=== PATIENT | female | born 1940 | race Caucasian/White ===

== ENCOUNTER 2017-02-06 04:26 | Inpatient (IN) | payer OTHER, BC ==
[2017-02-06 04:37] VITALS: BMI 34.3
--- NOTE | 2017-02-06 04:57 | DR.GENAD ---
HPI - PCP Primary Care Physician: ELLIOT - HPI Comment HPI Comment: PATIENT WOKE UP THIS AM AROUND 02:00 AM WITH LEFT FLANK PAIN AND SOB. WHILE AWAKE, BRIEF PERIOD WHEN PATIENT FELT IF HER THROAT WAS GOING TO CLOSE. SHE GURGLE AND STARTED BREATHING BETTER. STILL SOB. - Complaint/Symptoms Chief Complaint Doctors Comments: SOB, LEFT FLANK PAIN. Chief Complaint:: PATIENT HAS A SORE SPOT ON HER LEFT FLANK BACK AND SHORT OF BREATH - Nurses notes reviewed Nurses Notes Review: Yes - Source History Provided: Patient - Mode of Arrival Mode of Arrival: Ambulatory - Timing Onset of Chief Complaint: 02/03/17 Came on: Gradually - Duration Duration: Constant Duration: Hours - Severity Severity: Moderate PMH - PMH Past Medical History: Yes Past Medical History: Coronary Artery Disease, Hypertension, Kidney Stones Past Surgical History: Yes Surgical History: Cholecystectomy, Hysterectomy, Ortho Surgery - Family History History of Family Medical Conditions: Yes Family Medical History: Cancer - Social History Does any household member use tobacco: No Alcohol Use: None Do you use any recreational Drugs:: No Lives With: Spouse Lives Where: Home - infectious screening In the last 2 months have you had wt loss of >10#?: NO Have you had fever, night sweats or hemotysis?: No Have you traveled outside the country in the last 6 months?: No Isolation: Standard ROS - Review of Systems Constitutional: Weakness, Fatigue. negative: Chills, Fever, Loss of Appetite Eyes: No Symptoms Reported. negative: Eye Pain, Discharge ENTM: No Symptoms Reported. negative: Ear Pain, Nose Discharge, Nose Congestion , Throat Pain Respiratoy: Non-Productive Cough, Short of Breath, Wheezing. negative: Productive Cough, Hemoptysis Cardiovascular: Edema (ANKLE) Gastrointestinal/Abdominal: No Symptoms Reported. negative: Diarrhea, Nausea, Vomiting Genitourinary: No Symptoms Reported. negative: Dysuria, Frequency, Hematuria Neurological: Weakness. negative: Headache, Dizziness Musculoskeletal: Back Pain (LT FLANK PAIN), Muscle Pain Integumentary: Other (EDEMA ANKLE) Hematologic/Lymphatic: Easy Bruising Endocrine: No Symptoms Reported All Other Systems: Reviewed and Negative PE - Vital Signs Vitals: Temperature 98.1 F Pulse Rate 67 Respiratory Rate 18 Blood Pressure 189/91 O2 Sat by Pulse Oximetry 98 - General Limitations: No Limitations General Appearance: Alert - Head Head Exam: Normal Inspection - Eyes Eye exam: Normal Appearance - ENT ENT Exam: Normal External Ear Exam External Ear Exam: Normal External Inspection TM/Canal Exam: Bilateral Normal Nose Exam: Normal Nose Exam Mouth Exam: Normal Inspection Throat Exam: Normal Inspection - Neck Neck Exam: Trachea Midline. negative: Tenderness, Meningismus, Lymphadenopathy - Chest Chest Inspection: Symmetric Chest Wall Rise - Respiratory Respiratory Exam: negative: Chest Wall Tenderness, Respiratory Distress Respiratory Exam: Bilateral Rhonchi, Lower Rhonchi - Cardiovascular Cardiovascular Exam: Regular Rate, Normal Rhythm, Normal Heart Sounds - Abdominal Exam Abdominal Exam: Normal Bowel Sounds, Soft, Tenderness (LEFT FLANK) - Extremities Extremities Exam: Edema - Back Back Exam: (L) CVA Tenderness - Neurologic Neurological Exam: Alert, Oriented X3, CN II-XII Intact, Reflexes Normal. negative: Motor Sensory Deficit - Psychiatric Psychiatric Exam: Normal Affect, Normal Mood - Skin Skin Exam: Erythema MDM - Additional Information Additional Information Obtained From: Family - Differential Diagnosis Differential Diagnosis: LEFT FLANK PAIN, PYELONEPHRITIS, UTI, KIDNEY STONE, BOWEL ONSTRUCTION, DIVE Course - Treatment Treatment: SEE ORDERS, - Consultation Consultation Comments: DISCUSS PATIENT WITH DR. ZARATE. HE WILL ADMIT PATIENT. - Education/Counseling Education/Counseling: Patient, Family, Education Educated On: Treatment, Diagnosis, Needs for Follow Up ROR - Labs Reviewed Laboratory Results Reviewed?: Yes Result Diagrams: 02/06/17 05:16 02/06/17 05:16 Laboratory: WBC 6.3 X10^3/uL (3.6-10.0) 02/06/17 05:16 RBC 3.32 X10^6/uL (3.5-5.4) L 02/06/17 05:16 Hgb 10.5 g/dL (12.0-16.0) L 02/06/17 05:16 Hct 31.4 % (36.0-47.0) L 02/06/17 05:16 MCV 94.8 fL (80.0-100.0) 02/06/17 05:16 MCH 31.6 pg (27.0-34.0) 02/06/17 05:16 MCHC 33.4 g/dL (33.0-35.0) 02/06/17 05:16 RDW 15.1 % (11.6-16.5) 02/06/17 05:16 Plt Count 162 X10^3/uL (150.0-450.0) 02/06/17 05:16 MPV 8.8 fL (7.4-11.0) 02/06/17 05:16 Neut % 63.7 % (42.0-75.0) 02/06/17 05:16 Lymph % 23.9 % (21.0-51.0) 02/06/17 05:16 [place] % 7.1 % (0.0-13.0) 02/06/17 05:16 Eos % 4.3 % (0.9-2.9) H 02/06/17 05:16 Baso % 1.0 % (0.2-1.0) 02/06/17 05:16 Neut # 4.0 x10^3/uL (2.2-4.8) 02/06/17 05:16 Lymph # 1.5 X10^3/uL (1.3-2.9) 02/06/17 05:16 [place] # 0.5 x10^3/uL (0.3-0.8) 02/06/17 05:16 Eos # 0.3 x10^3/uL (0.0-0.2) H 02/06/17 05:16 Baso # 0.1 X10^3/uL (0.0-0.1) 02/06/17 05:16 Absolute Nucleated RBC 0.0 /100WBC 02/06/17 05:16 Sodium 146 mmol/L (136-145) H 02/06/17 05:16 Corrected Sodium 146 mmol/L (136-145) H 02/06/17 05:16 Potassium 4.4 mmol/L (3.5-5.1) 02/06/17 05:16 Chloride 112 mmol/L (98-107) H 02/06/17 05:16 Carbon Dioxide 24.1 mmol/L (21-32) 02/06/17 05:16 BUN 28 mg/dL (7-18) H 02/06/17 05:16 Creatinine 1.65 mg/dL (0.55-1.02) H 02/06/17 05:16 Est GFR (MDRD) Af Amer 39 (>60) L 02/06/17 05:16 Est GFR (MDRD) Non-Af 32 (>60) L 05/23/17 05:16 Glucose 120 mg/dL (65-99) H 02/06/17 05:16 Calcium 8.8 mg/dL (8.5-10.1) 02/06/17 05:16 Corrected Calcium 9.4 mg/dL (8.5-10.1) 02/06/17 05:16 Total Bilirubin 0.40 mg/dL (0.2-1.0) 02/06/17 05:16 AST 17 Units/L (15-37) 02/06/17 05:16 ALT 19 Units/L (12-78) 02/06/17 05:16 Alkaline Phosphatase 101 Units/L (46-116) 02/06/17 05:16 Creatine Kinase 57 Units/L (26-192) 02/06/17 05:16 CK-MB (CK-2) 1.7 ng/mL (0-4.0) 02/06/17 05:16 CK/CKMB % Calc 3.0 % (<4) 02/06/17 05:16 Troponin I < 0.02 ng/mL (0-1.5) 02/06/17 05:16 B-Natriuretic Peptide 223 pg/mL (0-79) H 02/06/17 05:16 Total Protein 6.5 g/dL (6.4-8.2) 02/06/17 05:16 Albumin 3.3 g/dL (3.4-5.0) L 02/06/17 05:16 Globulin 3.2 g/dL (2.5-4.5) 02/06/17 05:16 Albumin/Globulin Ratio 1.0 Ratio (1.1-2.1) L 02/06/17 05:16 Specimen Type Clean catch urine 02/06/17 05:21 Urine Color Yellow (YELLOW) 02/06/17 05:21 Urine Appearance Slightly hazy (CLEAR) 02/06/17 05:21 Urine pH 5.0 (5.0 - 8.0) 02/06/17 05:21 Ur Specific [place] 1.020 (1.000-1.030) 02/06/17 05:21 Urine Protein 2+ (NEGATIVE) 02/06/17 05:21 Urine Glucose (UA) Negative (NEGATIVE) 02/06/17 05:21 Urine Ketones Negative (NEGATIVE) 02/06/17 05:21 Urine Occult Blood 1+ (NEGATIVE) 02/06/17 05:21 Urine Nitrite Positive (NEGATIVE) 02/06/17 05:21 Urine Bilirubin Negative (NEGATIVE) 02/06/17 05:21 Urine Urobilinogen Normal (NORMAL) 02/06/17 05:21 Ur Leukocyte Esterase 2+ (NEGATIVE) 02/06/17 05:21 Urine RBC 0-3 /HPF (NEGATIVE) 02/06/17 05:21 Urine WBC 10-15 /HPF (NEGATIVE) 02/06/17 05:21 Ur Squamous Epith Cells Few /HPF (NEGATIVE) 02/06/17 05:21 Urine Bacteria 2+ /HPF (NEGATIVE) 02/06/17 05:21 Ur Culture Indicated? Yes/culture set up 02/06/17 05:21 - XRAY XRAY Interpreted by: Radiologist XRAY Findings: REPORT DISCUSS WITH PATIENT. - EKG Rhythm: NSR (EKG NOTED.) - Diagnosis Discharge Problem: Partial small bowel obstruction UTI (urinary tract infection) Qualifiers: Urinary tract infection type: site unspecified Hematuria presence: without hematuria Qualified Code(s): N39.0 - Urinary tract infection, site not specified CHF (congestive heart failure) Qualifiers: Congestive heart failure type: combined Congestive heart failure chronicity: acute on chronic Qualified Code(s): I50.43 - Acute on chronic combined systolic (congestive) and diastolic (congestive) heart failure - Discharge Plan Disposition: ADMITTED INPATIENT Condition: Stable - Follow ups/Referrals Follow ups/Referrals: Tyson Zarate [Primary Care Provider] - 3 days - Instructions
[2017-02-06 05:32] LABS: BASOPHILS # (AUTO) 0.1 X10^3/uL (0.0-0.1); EOSINOPHILS # (AUTO) 0.3 x10^3/uL (0.0-0.2); EOSINOPHILS % (AUTO) 4.3 % (0.9-2.9); HEMATOCRIT 31.4 % (36.0-47.0); HEMOGLOBIN 10.5 g/dL (12.0-16.0); LYMPHOCYTES # (AUTO) 1.5 X10^3/uL (1.3-2.9); LYMPHOCYTES % (AUTO) 23.9 % (21.0-51.0); MEAN CORPUSCULAR HEMOGLOBIN 31.6 pg (27.0-34.0); MEAN CORPUSCULAR HGB CONC 33.4 g/dL (33.0-35.0); MEAN CORPUSCULAR VOLUME 94.8 fL (80.0-100.0); MEAN PLATELET VOLUME 8.8 fL (7.4-11.0); MONOCYTES # (AUTO) 0.5 x10^3/uL (0.3-0.8); MONOCYTES % (AUTO) 7.1 % (0.0-13.0); NEUTROPHILS % (AUTO) 63.7 % (42.0-75.0); PLATELET COUNT 162 X10^3/uL (150.0-450.0); RED BLOOD COUNT 3.32 X10^6/uL (3.5-5.4); RED CELL DISTRIBUTION WIDTH 15.1 % (11.6-16.5); WHITE BLOOD COUNT 6.3 X10^3/uL (3.6-10.0)
--- NOTE | 2017-02-06 05:38 | RAD ---
EXAM: Chest X-ray INDICATION: Shortness of breath COMPARISION: No prior TECHNIQUE: PA, single view FINDINGS: The lungs are clear. The heart is moderately enlarged. No pleural effusion or pneumothorax. The medi astinum is normal. The regional skeleton is intact. IMPRESSION: Cardiomegaly. The remainder of the examination appears unremarkable. Reported By:
[2017-02-06 05:43] LABS: BILIRUBIN,URINE NEGATIVE (NEGATIVE); BLOOD/HEMOGLOBIN,URINE 1+ (NEGATIVE); GLUCOSE, URINE NEGATIVE (NEGATIVE); KETONES,URINE NEGATIVE (NEGATIVE); LEUKOCYTE ESTERASE ,URINE 2+ (NEGATIVE); NITRITES,URINE POSITIVE (NEGATIVE); PROTEIN,URINE 2+ (NEGATIVE); UROBILINOGEN,URINE NORMAL (NORMAL)
[2017-02-06 05:46] LABS: BLOOD UREA NITROGEN 28 mg/dL (7-18); CALCIUM 8.8 mg/dL (8.5-10.1); CARBON DIOXIDE 24.1 mmol/L (21-32); CHLORIDE 112 mmol/L (98-107); COR NA(FOR HYPERGLY) 146 mmol/L (136-145); CREATININE 1.65 mg/dL (0.55-1.02); GLUCOSE 120 mg/dL (65-99); SODIUM 146 mmol/L (136-145); TROPONIN I < 0.02 ng/mL (0-1.5); eGFR BLACK RACES 39 (>60); eGFR NON BLACK RACES 32 (>60)
[2017-02-06 05:49] LABS: B-TYPE NATRIURETIC PEPTIDE 223 pg/mL (0-79)
[2017-02-06 05:49] LABS: APPEARANCE,URINE SLIGHTLY HAZY (CLEAR); BACTERIA,URINE 2+ /HPF (NEGATIVE); COLOR,URINE YELLOW (YELLOW); RBC,URINE 0-3 /HPF (NEGATIVE); SQUAMOUS EPITHELIAL CELL,UR FEW /HPF (NEGATIVE)
[2017-02-06 05:53] LABS: ALANINE AMINOTRANSFERASE 19 Units/L (12-78); ALBUMIN 3.3 g/dL (3.4-5.0); ALKALINE PHOSPHATASE 101 Units/L (46-116); ASPARTATE AMINO TRANSFERASE 17 Units/L (15-37); COR CA(FOR HYPOALB) 9.4 mg/dL (8.5-10.1); CREATINE KINASE 57 Units/L (26-192); CREATINE KINASE MB 1.7 ng/mL (0-4.0); TOTAL PROTEIN 6.5 g/dL (6.4-8.2)
--- NOTE | 2017-02-06 06:15 | CT ---
HISTORY: Left flank pain Study: CT abdomen pelvis without contrast Comparison: None Technique: Axial non contrast images with coronal and sagittal reformats. Dose reduction procedures were used with MA/kv adjusted for body size. Findings: The lung bases are clear. There is a large hiatal hernia present. The heart is enlarged. The liver, spleen, adrenal glands, and pancreas are within normal limits to the limitations of an unenhanced ex amination. The patient is status post cholecystectomy. The kidneys are unobstructed and without ston es. No ureteral calculi are identified. Calcific atherosclerotic change is present in a nondilated a bdominal aorta. No enlarged intraperitoneal or retroperitoneal lymphadenopathy is identified. The ap pendix is normal. There are no findings suggestive of diverticulitis or colitis. In the left upper q uadrant. There are some very mildly dilated loops of jejunum demonstrating some mild transmural thic kening. More distally the distal jejunum and ileal loops are of more normal caliber. A very mild par tial small bowel obstruction is possible. Possible etiologies would be adhesion and internal herniat ion. The mild transmural thickening could be on the basis of vascular congestion or enteritis. Repea t examination with intravenous and oral contrast may be of further diagnostic value. As would furthe r surgical evaluation. Examination of the pelvis demonstrated no evidence for pelvic masses, pelvic fluid, or pelvic lymphadenopathy. No definite bladder abnormality is identified. No lytic or blastic skeletal lesions are identified. IMPRESSION: No evidence for obstructing renal or ureteral calculi Very mildly dilated loops of jejunum in the left upper quadrant with more normal size distal jejunal and ileal loops suggesting the possibility of a mild partial small bowel obstruction. The etiology is not obvious. Adhesion and internal herniation are possibilities. See recommendation as above. Mild transmural thickening in some of the dilated loops which could be on the basis of vascular tano estion inflammation or enteritis Large hiatal hernia Reported By:
[2017-02-06] MEDS ORDERED: NS 250 ML IV 250 ML IV ONE (07:24)
[2017-02-06] MEDS: CIPRO IV 400 MG PREMIX* 400 MG/200 ML IV.SOLN. IV SCH ×3 (07:25→20:32)
[2017-02-06] MEDS ORDERED: [UNRECOGNIZED DRUG - OTHER] PO SCH (09:00)
[2017-02-06] MEDS ORDERED: METOPROLOL TARTRATE PO SCH (09:00)
[2017-02-06] MEDS ORDERED: VALSARTAN HYDROCHLOROTHIAZIDE PO SCH (09:00)
[2017-02-06] MEDS: PEPCID 20 MG IV PREMIX* 20 MG/50 ML BAG IV SCH (11:01)
[2017-02-06] MEDS: ZYLOPRIM PO SCH (11:01)
[2017-02-06] MEDS: FLAGYL IV PREMIX 500 MG BAG 500 MG/100 ML BAG IV SCH ×4 (11:01→20:33)
[2017-02-06] MEDS: DIOVAN TAB 160 MG PO SCH (11:02)
[2017-02-06] MEDS: LOPRESSOR TAB 50 MG PO SCH (11:02)
[2017-02-06] MEDS: VASOTEC TAB 20 MG PO SCH (11:02)
[2017-02-06] MEDS: HYDROCHLOROTHIAZIDE 25 MG TAB PO SCH (11:03)
[2017-02-06 11:50] LABS: CKMB % 2.8 % (<4); CREATINE KINASE 53 Units/L (26-192); CREATINE KINASE MB 1.5 ng/mL (0-4.0); TROPONIN I < 0.02 ng/mL (0-1.5)
[2017-02-06 13:02] LABS: CRYPTOSPORIDIUM PARVUM ANTIGEN NEGATIVE (NEGATIVE); GIARDIA LAMBLIA ANTIGEN NEGATIVE (NEGATIVE)
[2017-02-06 17:21] LABS: CKMB % 2.6 % (<4); CREATINE KINASE 54 Units/L (26-192); CREATINE KINASE MB 1.4 ng/mL (0-4.0); TROPONIN I < 0.02 ng/mL (0-1.5)
[2017-02-07] MEDS: FLAGYL IV PREMIX 500 MG BAG 500 MG/100 ML BAG IV SCH ×4 (03:31→20:09)
[2017-02-07 04:51] LABS: BASOPHILS # (AUTO) 0.1 X10^3/uL (0.0-0.1); BASOPHILS % (AUTO) 0.9 % (0.2-1.0); EOSINOPHILS # (AUTO) 0.3 x10^3/uL (0.0-0.2); EOSINOPHILS % (AUTO) 4.1 % (0.9-2.9); HEMATOCRIT 29.9 % (36.0-47.0); HEMOGLOBIN 9.9 g/dL (12.0-16.0); LYMPHOCYTES % (AUTO) 29.7 % (21.0-51.0); MEAN CORPUSCULAR HEMOGLOBIN 31.4 pg (27.0-34.0); MEAN CORPUSCULAR HGB CONC 33.1 g/dL (33.0-35.0); MEAN CORPUSCULAR VOLUME 94.8 fL (80.0-100.0); MEAN PLATELET VOLUME 9.4 fL (7.4-11.0); MONOCYTES # (AUTO) 0.5 x10^3/uL (0.3-0.8); MONOCYTES % (AUTO) 7.8 % (0.0-13.0); NEUTROPHILS # (AUTO) 3.8 x10^3/uL (2.2-4.8); NEUTROPHILS % (AUTO) 57.5 % (42.0-75.0); PLATELET COUNT 149 X10^3/uL (150.0-450.0); RED BLOOD COUNT 3.16 X10^6/uL (3.5-5.4); RED CELL DISTRIBUTION WIDTH 14.8 % (11.6-16.5); WHITE BLOOD COUNT 6.6 X10^3/uL (3.6-10.0)
[2017-02-07 05:03] LABS: ALANINE AMINOTRANSFERASE 16 Units/L (12-78); ALBUMIN 2.9 g/dL (3.4-5.0); ALKALINE PHOSPHATASE 89 Units/L (46-116); ASPARTATE AMINO TRANSFERASE 16 Units/L (15-37); BLOOD UREA NITROGEN 27 mg/dL (7-18); CALCIUM 8.5 mg/dL (8.5-10.1); CARBON DIOXIDE 24.8 mmol/L (21-32); CHLORIDE 111 mmol/L (98-107); COR CA(FOR HYPOALB) 9.4 mg/dL (8.5-10.1); CREATININE 1.66 mg/dL (0.55-1.02); GLUCOSE 102 mg/dL (65-99); SODIUM 145 mmol/L (136-145); TOTAL PROTEIN 5.8 g/dL (6.4-8.2); eGFR BLACK RACES 38 (>60); eGFR NON BLACK RACES 32 (>60)
[2017-02-07] MEDS: DIOVAN TAB 160 MG PO SCH (09:22)
[2017-02-07] MEDS: LOPRESSOR TAB 50 MG PO SCH (09:22)
[2017-02-07] MEDS: CIPRO IV 400 MG PREMIX* 400 MG/200 ML IV.SOLN. IV SCH ×2 (09:23→20:09)
[2017-02-07] MEDS: VASOTEC TAB 20 MG PO SCH (09:23)
[2017-02-07] MEDS: HYDROCHLOROTHIAZIDE 25 MG TAB PO SCH (09:23)
[2017-02-07] MEDS: PEPCID 20 MG IV PREMIX* 20 MG/50 ML BAG IV SCH (09:23)
[2017-02-07] MEDS: ALBUMIN HUMAN 25%- 100ML 100 ML IV SCH (09:24)
[2017-02-07] MEDS: ZYLOPRIM PO SCH (09:29)
[2017-02-07] MEDS: GENTAMICIN TOPICAL CRM TOP SCH ×3 (12:04→21:45)
--- NOTE | 2017-02-07 14:31 | DR.H&P ---
H&P - History & Physical for Day of: H&P Date: 02/06/17 - Chief Complaint Chief Complaint: LEFT FLANK PAIN, ABDOMINAL PAIN, SHORTNESS OF BREATH - Allergies Allergies/Adverse Reactions: Allergies Allergy/AdvReac Type Severity Reaction Status Date / Time Cephalexin [From Keflex] Allergy Verified 07/03/14 13:04 Nitrofurantoin Allergy Verified 07/03/14 13:04 [From Macrobid] - History of Present Illness History of Present Illness: THIS IS A 76 YEAR OLD FEMALE, WHO IS A PATIENT OF OURS. SHE PRESENTS TO THE EMERGENCY ROOM WITH COMPLAINTS OF LEFT FLANK PAIN, ABDOMINAL PAIN, AND SHORTNESS OF BREATH. SHE REPORTS SYMPTOMS STARTED GRADUALLY AND HAVE WORSENED OVER TIME. PATIENT IS NOTED WITH TENDERNESS TO ABDOMEN AND LEFT FLANK ON PALPATION. LABS AND CT OBTAINED. CBC WNL EXCEPT: H/ H 10.5/31.4. CMP WNL EXCEPT: SODIUM 146, CHL 112, BUN/CREAT 28/1.65, GFR 32, GLUCOSE 120, BNP 223, ALBUMIN 3.3. CARDIAC ENZYMES WNL. EKG: SINUS RHYTHM, RATE 68. URINALYSIS ABNORMALS: PROTEIN 2+, OCCULT BLOOD 1+, NITRATE POSITIVE, LEUKOCYTE ESTERASE 2+, RBC 0-3, WBC 10-15, BACTERIA 2+; CULTURE PENDING. CHEST XRAY REPORTS LUNGS CLEAR. CT OF ABD/PELVIS REPORTS VERY MILDLY DILATED LOOPS OF JEJUNUM IN THE LEFT UPPER QUADRANT WITH MORE NORMAL SIZE DISTAL JEJUNAL AND ILEAL LOOPS SUGGESTING THE POSSIBILITY OF A MILD PARTIAL SMALL BOWEL OBSTRUCTION ; LARGE HIATAL HERNIA. WE WILL ADMIT PATIENT, START IV FLUIDS, IV CIPRO AND FLAGYL, AND CONTINUE TO MONITOR. WE WILL FOLLOW UP IN AM WITH LABS. - Past Medical History Past Medical History: Anemia, Arthritis, CHF, Coronary Artery Disease, GERD, Hypertension, Kidney Stones, Sleep Apnea Additional Medical History: Cataracts, Cardiomegaly, Constipation, Urinary Tract Infections, Previous Blood Transfusion - Past Surgical History Surgical History: Cholecystectomy, Hysterectomy, Ortho Surgery Additional Surgical History: Left Shoulder Surgery, Left Foot Second Toe Surgery - Family History Family Medical History: Cancer - Social History Does patient currently use any type of tobacco product: No Have you used tobacco products in the last 12 months: No Type of Tobacco Use: None Does any household member use tobacco: No Alcohol Use: None Drug Use: None - Medications Home Medications: Allopurinol [ZYLOPRIM tab 100 mg *] 1 tab PO DAILY 07/03/14 Enalapril Maleate [VASOTEC TAB 20 MG *] 1 tab PO DAILY 07/03/14 Metoprolol Tartrate [Lopressor tab 100 mg] 1 tab PO DAILY 07/03/14 Ranitidine HCl 1 tab PO BID 07/03/14 Valsartan-Hydrochlorothiazide [Valsartan/HCTZ 320/25 mg] 1 tab PO DAILY Torsemide [Demadex] 10 mg PO PRN PRN 02/06/17 - Review of Systems Constitutional: Weakness, Malaise. denies: Fever Eyes: No Symptoms Reported. denies: Pain, Vision Change, Conjunctivae Inflammation, Eyelid Inflammation, Redness ENT: No Symptoms Reported. denies: Ear Pain, Ear Discharge, Nose Pain, Nose Discharge, Nose Congestion, Mouth Pain, Mouth Swelling, Throat Pain, Throat Swelling Respiratory: Shortness of Breath, SOB with Excertion. denies: Hemoptysis, Pleuritic Pain, Sputum, Wheezing Cardiovascular: No Symptoms Reported. denies: Chest Pain, Palpitations, Orthopnea, Paroxysmal Noc. Dyspnea, Edema, Light Headedness Gastrointestinal: Abdominal Pain. denies: Nausea, Vomiting, Diarrhea, Constipation, Melena, Hematochezia Genitourinary: Dysuria, Frequency, Hematuria. denies: Incontinence, Retention Musculoskeletal: Other (Left Flank Pain) Skin: No Symptoms Reported. denies: Rash, Lesions, Jaundice, Bruising, Wound, Ecchymosis Neurological: No Symptoms Reported. denies: Weakness, Numbness, Incoordination , Change in Speech, Confusion, Seizures - Physical Exam Vital Signs: Temperature 97.8 F Pulse Rate [Right Brachial] 57 Respiratory Rate 16 Blood Pressure [Left Arm] 154/71 Blood Pressure [Right Arm] 159/79 O2 Sat by Pulse Oximetry 96 Oriented: Normal, Time, Person, Place Eyes: Normal. negative: Blurred Vision, Diplopia, Discharge, Pain, Redness, Photophobia Ear: Normal. negative: Swelling, Ecchymosis, Hemotypanum, Abrasion, Laceration Nose: Normal. negative: Injected, Discharge, Blood Throat: Dry. negative: Tonsillar Hypertrophy, Exudate Respiratory: Diminished Throughout Cardiovascular: Normal. negative: Murmur, Edema : Dysuria, Hematuria, Frequency. negative: Discharge, Bleeding, Auscultation: Bowel Sounds: Decreased. negative: Bruit Palpation: Normal. negative: Spleen Enlarged, Liver Enlarged, Mass Pulsatile Tenderness: Diffuse, Moderate. negative: Rebound, Guarding, Rigidity Skin: Decreased Turgur. negative: Diaphoresis, Wound, Bruising, Ecchymosis Musculoskeletal: Instability Psychiatric: Normal Mood Description: Calm, Appropriate Affect: Normal Speech Pattern: Clear, Appropriate - Assessment/Plan (1) Partial small bowel obstruction Status: Acute Plan: ADMIT PATIENT, HOLD NPO, START IV FLUIDS, IV CIPRO, IV FLAGYL, MONITOR. (2) UTI (urinary tract infection) Qualifiers: Urinary tract infection type: site unspecified Hematuria presence: without hematuria Indwelling urinary catheter type: I Encounter type: E Qualified Code(s): N39.0 - Urinary tract infection, site not specified Status: Acute Plan: ABOVE. (3) CHF (congestive heart failure) Qualifiers: Congestive heart failure type: combined Congestive heart failure chronicity : acute on chronic Qualified Code(s): I50.43 - Acute on chronic combined systolic (congestive) and diastolic (congestive) heart failure Status: Chronic (4) Arthritis Status: Chronic (5) Cardiomegaly Status: Chronic (6) GERD (gastroesophageal reflux disease) Qualifiers: Esophagitis presence: esophagitis presence not specified Qualified Code(s) : K21.9 - Gastro-esophageal reflux disease without esophagitis Status: Chronic (7) HTN (hypertension) Qualifiers: Hypertension type: essential hypertension Qualified Code(s): I10 - Essential (primary) hypertension Status: Chronic (8) Sleep apnea Qualifiers: Sleep apnea type: S Status: Chronic
--- NOTE | 2017-02-07 14:45 | PCM.PROG ---
Progress Note - Progress Note for Day of Date: 02/07/17 - Subjective Subjective: PATIENT REPORTS ABDOMINAL PAIN IS IMPROVING. SHE HAS BEEN STARTED ON A REGULAR DIET AND IS TOLERATING FAIR. PATIENT REPORTS LOOSE STOOLS AND STOOL CULTURE WAS OBTAINED THAT REPORTED CAMPYLOBACTER. PATIENT WILL CONTINUE ON CIPRO IV FOR TREATMENT. WE DISCUSS THIS WITH PATIENT AND SHE IS IN AGREEMENT WITH TREATMENT. PATIENT REPORTS SWELLING AND REDNESS TO LEFT, SECOND TOE. ON EXAMINATION, THERE IS REDNESS AND WARMTH NOTED ALONG WITH TENDERNESS TO SKIN SURROUNDING LEFT, SECOND TOE. CBC WNL EXCEPT: H/H 9.9/29.9, PLT COUNT 149. CMP WNL EXCEPT: CHL 111, BUN/CREAT 27/1.66, GFR 32, GLUCOSE 102, TOT PROTEIN 5.8, ALBUMIN 2.9. CARDIAC ENZYMES WNL. WE WILL START GENTAMICIN CREAM TO LEFT, SECOND TOE, CONTINUE IV ANTIBIOTICS AND FOLLOW UP IN AM WITH LABS. - Past Medical Family Social History Past Med/Fam/Surg Hx: No changes since H&P Allergies: Allergies Cephalexin [From Keflex] Allergy (Verified 07/03/14 13:04) Nitrofurantoin [From Macrobid] Allergy (Verified 07/03/14 13:04) - Review of Systems ROS: No change since H&P - Vital Signs and I&O's Vital Signs: Temperature 97.8 F Pulse Rate [Right Brachial] 57 Respiratory Rate 16 Blood Pressure [Left Arm] 154/71 Blood Pressure [Right Arm] 159/79 O2 Sat by Pulse Oximetry 96 Intake and Output: Intake & Output 02/05/17 02/06/17 02/07/17 02/08/17 11:59 11:59 11:59 11:59 Intake Total 1730 1649 Balance 1730 1649 - Physical Exam Oriented: Normal, Time, Person, Place Eyes: Normal. negative: Blurred Vision, Diplopia, Discharge, Pain, Redness, Photophobia Ear: Normal. negative: Swelling, Ecchymosis, Hemotypanum, Abrasion, Laceration Nose: Normal. negative: Injected, Discharge, Blood Throat: Dry. negative: Tonsillar Hypertrophy, Exudate Respiratory: Normal Cardiovascular: Normal. negative: Murmur, Edema : Dysuria, Hematuria, Frequency. negative: Discharge, Bleeding, Auscultation: Bowel Sounds: Decreased. negative: Bruit Palpation: Normal. negative: Spleen Enlarged, Liver Enlarged, Mass Pulsatile Tenderness: Diffuse, Mild. negative: Rebound, Guarding, Rigidity Skin: Decreased Turgur. negative: Diaphoresis, Wound, Bruising, Ecchymosis Musculoskeletal: Instability Psychiatric: Normal Mood Description: Calm, Appropriate Affect: Normal Speech Pattern: Clear, Appropriate - Laboratory and Diagnostics Result Diagrams: 02/07/17 03:25 02/07/17 03:25 Labs: 02/06/17 09:34 Stool Stool Culture - Preliminary Campylobacter Species 02/06/17 09:34 Stool - Final Laboratory WBC 6.6 X10^3/uL (3.6-10.0) 02/07/17 03:25 RBC 3.16 X10^6/uL (3.5-5.4) L 02/07/17 03:25 Hgb 9.9 g/dL (12.0-16.0) L 02/07/17 03:25 Hct 29.9 % (36.0-47.0) L 02/07/17 03:25 MCV 94.8 fL (80.0-100.0) 02/07/17 03:25 MCH 31.4 pg (27.0-34.0) 02/07/17 03:25 MCHC 33.1 g/dL (33.0-35.0) 02/07/17 03:25 RDW 14.8 % (11.6-16.5) 02/07/17 03:25 Plt Count 149 X10^3/uL (150.0-450.0) L 02/07/17 03:25 MPV 9.4 fL (7.4-11.0) 02/07/17 03:25 Neut % 57.5 % (42.0-75.0) 02/07/17 03:25 Lymph % 29.7 % (21.0-51.0) 02/07/17 03:25 [place] % 7.8 % (0.0-13.0) 02/07/17 03:25 Eos % 4.1 % (0.9-2.9) H 02/07/17 03:25 Baso % 0.9 % (0.2-1.0) 02/07/17 03:25 Neut # 3.8 x10^3/uL (2.2-4.8) 02/07/17 03:25 Lymph # 2.0 X10^3/uL (1.3-2.9) 02/07/17 03:25 [place] # 0.5 x10^3/uL (0.3-0.8) 02/07/17 03:25 Eos # 0.3 x10^3/uL (0.0-0.2) H 02/07/17 03:25 Baso # 0.1 X10^3/uL (0.0-0.1) 02/07/17 03:25 Absolute Nucleated RBC 0.1 /100WBC 02/07/17 03:25 Sodium 145 mmol/L (136-145) 02/07/17 03:25 Corrected Sodium TNP 02/07/17 03:25 Potassium 4.5 mmol/L (3.5-5.1) 02/07/17 03:25 Chloride 111 mmol/L (98-107) H 02/07/17 03:25 Carbon Dioxide 24.8 mmol/L (21-32) 02/07/17 03:25 BUN 27 mg/dL (7-18) H 02/07/17 03:25 Creatinine 1.66 mg/dL (0.55-1.02) H 02/07/17 03:25 Est GFR (MDRD) Af Amer 38 (>60) L 02/07/17 03:25 Est GFR (MDRD) Non-Af 32 (>60) L 02/07/17 03:25 Glucose 102 mg/dL (65-99) H 02/07/17 03:25 Uric Acid 6.0 mg/dL (2.6-6.0) 02/07/17 03:25 Calcium 8.5 mg/dL (8.5-10.1) 02/07/17 03:25 Corrected Calcium 9.4 mg/dL (8.5-10.1) 02/07/17 03:25 Total Bilirubin 0.40 mg/dL (0.2-1.0) 02/07/17 03:25 AST 16 Units/L (15-37) 02/07/17 03:25 ALT 16 Units/L (12-78) 02/07/17 03:25 Alkaline Phosphatase 89 Units/L (46-116) 02/07/17 03:25 Creatine Kinase 54 Units/L (26-192) 02/06/17 16:38 CK-MB (CK-2) 1.4 ng/mL (0-4.0) 02/06/17 16:38 CK/CKMB % Calc 2.6 % (<4) 02/06/17 16:38 Troponin I < 0.02 ng/mL (0-1.5) 02/06/17 16:38 B-Natriuretic Peptide 223 pg/mL (0-79) H 02/06/17 05:16 Total Protein 5.8 g/dL (6.4-8.2) L 02/07/17 03:25 Albumin 2.9 g/dL (3.4-5.0) L 02/07/17 03:25 Globulin 2.9 g/dL (2.5-4.5) 02/07/17 03:25 Albumin/Globulin Ratio 1.0 Ratio (1.1-2.1) L 02/07/17 03:25 Specimen Type Clean catch urine 02/06/17 05:21 Urine Color Yellow (YELLOW) 02/06/17 05:21 Urine Appearance Slightly hazy (CLEAR) 02/06/17 05:21 Urine pH 5.0 (5.0 - 8.0) 02/06/17 05:21 Ur Specific [place] 1.020 (1.000-1.030) 02/06/17 05:21 Urine Protein 2+ (NEGATIVE) 02/06/17 05:21 Urine Glucose (UA) Negative (NEGATIVE) 02/06/17 05:21 Urine Ketones Negative (NEGATIVE) 02/06/17 05:21 Urine Occult Blood 1+ (NEGATIVE) 02/06/17 05:21 Urine Nitrite Positive (NEGATIVE) 02/06/17 05:21 Urine Bilirubin Negative (NEGATIVE) 02/06/17 05:21 Urine Urobilinogen Normal (NORMAL) 02/06/17 05:21 Ur Leukocyte Esterase 2+ (NEGATIVE) 02/06/17 05:21 Urine RBC 0-3 /HPF (NEGATIVE) 02/06/17 05:21 Urine WBC 10-15 /HPF (NEGATIVE) 02/06/17 05:21 Ur Squamous Epith Cells Few /HPF (NEGATIVE) 02/06/17 05:21 Urine Bacteria 2+ /HPF (NEGATIVE) 02/06/17 05:21 Ur Culture Indicated? Yes/culture set up 02/06/17 05:21 Stool Description 30g unformed 02/06/17 09:34 Stl Occult Blood (IFOB) Negative (NEGATIVE) 02/06/17 09:34 Stool for White Cells No wbc's seen (None) 02/06/17 09:34 Stl C. diff Tox B Gene Negative (NEGATIVE) 02/06/17 09:34 Stl C. diff [id number] Negative (NEGATIVE) 02/06/17 09:34 Cryptosporid parvum Ag Negative (NEGATIVE) 02/06/17 09:34 E. histolytica Antigen Negative (NEGATIVE) 02/06/17 09:34 Giardia lamblia Ag Negative (NEGATIVE) 02/06/17 09:34 - Plan (1) Partial small bowel obstruction Status: Acute Plan: CONTINUE IV FLUIDS, IV CIPRO, IV FLAGYL, MONITOR. (2) UTI (urinary tract infection) Status: Acute Qualifiers: Urinary tract infection type: site unspecified Hematuria presence: without hematuria Indwelling urinary catheter type: I Encounter type: E Qualified Code(s): N39.0 - Urinary tract infection, site not specified Plan: ABOVE. (3) CHF (congestive heart failure) Status: Chronic Qualifiers: Congestive heart failure type: combined Congestive heart failure chronicity : acute on chronic Qualified Code(s): I50.43 - Acute on chronic combined systolic (congestive) and diastolic (congestive) heart failure (4) Arthritis Status: Chronic (5) Cardiomegaly Status: Chronic (6) GERD (gastroesophageal reflux disease) Status: Chronic Qualifiers: Esophagitis presence: esophagitis presence not specified Qualified Code(s) : K21.9 - Gastro-esophageal reflux disease without esophagitis (7) HTN (hypertension) Status: Chronic Qualifiers: Hypertension type: essential hypertension Qualified Code(s): I10 - Essential (primary) hypertension (8) Sleep apnea Status: Chronic Qualifiers: Sleep apnea type: S
[2017-02-07] MEDS ORDERED: NS 250 ML IV 250 ML IV ONE (19:59)
[2017-02-08] MEDS: FLAGYL IV PREMIX 500 MG BAG 500 MG/100 ML BAG IV SCH ×2 (03:09→08:31)
[2017-02-08] MEDS: GENTAMICIN TOPICAL CRM TOP SCH (05:19)
[2017-02-08 05:45] LABS: CALCIUM 8.8 mg/dL (8.5-10.1); CARBON DIOXIDE 23.9 mmol/L (21-32); COR CA(FOR HYPOALB) 9.6 mg/dL (8.5-10.1); CREATININE 1.75 mg/dL (0.55-1.02); TOTAL PROTEIN 5.7 g/dL (6.4-8.2)
[2017-02-08 05:56] LABS: BASOPHILS % (AUTO) 0.5 % (0.2-1.0); EOSINOPHILS # (AUTO) 0.2 x10^3/uL (0.0-0.2); EOSINOPHILS % (AUTO) 3.8 % (0.9-2.9); HEMATOCRIT 28.8 % (36.0-47.0); HEMOGLOBIN 9.6 g/dL (12.0-16.0); LYMPHOCYTES # (AUTO) 1.5 X10^3/uL (1.3-2.9); LYMPHOCYTES % (AUTO) 24.1 % (21.0-51.0); MEAN CORPUSCULAR HEMOGLOBIN 31.6 pg (27.0-34.0); MEAN CORPUSCULAR HGB CONC 33.5 g/dL (33.0-35.0); MEAN CORPUSCULAR VOLUME 94.3 fL (80.0-100.0); MEAN PLATELET VOLUME 9.1 fL (7.4-11.0); MONOCYTES # (AUTO) 0.5 x10^3/uL (0.3-0.8); MONOCYTES % (AUTO) 7.9 % (0.0-13.0); NEUTROPHILS # (AUTO) 3.9 x10^3/uL (2.2-4.8); NEUTROPHILS % (AUTO) 63.7 % (42.0-75.0); PLATELET COUNT 137 X10^3/uL (150.0-450.0); RED BLOOD COUNT 3.05 X10^6/uL (3.5-5.4); RED CELL DISTRIBUTION WIDTH 14.9 % (11.6-16.5); WHITE BLOOD COUNT 6.1 X10^3/uL (3.6-10.0)
[2017-02-08] MEDS: ZYLOPRIM PO SCH (08:31)
[2017-02-08] MEDS: HYDROCHLOROTHIAZIDE 25 MG TAB PO SCH (08:31)
[2017-02-08] MEDS: DIOVAN TAB 160 MG PO SCH (08:31)
[2017-02-08] MEDS: VASOTEC TAB 20 MG PO SCH (08:32)
[2017-02-08] MEDS: LOPRESSOR TAB 50 MG PO SCH (08:32)
[2017-02-08] MEDS: PEPCID 20 MG IV PREMIX* 20 MG/50 ML BAG IV SCH (08:35)
[2017-02-08] MEDS: CIPRO IV 400 MG PREMIX* 400 MG/200 ML IV.SOLN. IV SCH (08:36)
[2017-02-08] MEDS: ALBUMIN HUMAN 25%- 100ML 100 ML IV SCH (08:36)
[2017-02-08 08:58] VITALS: BP 157/61
== END 2017-02-08 12:30 | disposition home or self-care (01) | DRG 388 ==
LOC: ER 04:26 → ICU 07:12
PROVIDERS: ADMIT Internal Medicine; ATTEND Internal Medicine
DX: K56.69 Other intestinal obstruction (principal); N39.0 Urinary tract infection, site not specified; I50.43 Acute on chronic combined systolic (congestive) and diastolic (congestive) heart failure; R06.02 Shortness of breath; R10.84 Generalized abdominal pain; I25.10 Atherosclerotic heart disease of native coronary artery without angina pectoris; I10 Essential (primary) hypertension; R94.31 Abnormal electrocardiogram [ECG] [EKG]; K44.9 Diaphragmatic hernia without obstruction or gangrene; M13.89 Other specified arthritis, multiple sites; I51.7 Cardiomegaly; K21.9 Gastro-esophageal reflux disease without esophagitis; G47.39 Other sleep apnea; B96.29 Other Escherichia coli [E. coli] as the cause of diseases classified elsewhere; A04.5 Campylobacter enteritis
CPT/HCPCS: 36415; 71010; 74176; 80053; 81001; 82270; 82550; 82553; 83880; 84484; 84550; 85025; 87045; 87086; 87088; 87186; 87205; 87328; 87329; 87336; 87427; 87493; 87899; 93005; 96374; 99284; A4222; P9047; S0028; S0030; J0744

== ENCOUNTER → 2017-07-30 | Outpatient (CLI) | payer OTHER, BC ==
--- NOTE | 2017-07-31 17:24 | MG ---
HISTORY: Screening Study: Bilateral digital screening mammography with CAD Comparison: June 26, 2014 Technique: CC and MLO views of both breasts were obtained Findings: The breasts are heterogeneously dense without suspicious interval change. There is no mass or archite ctural distortion. Benign calcifications are noted without suspicious clustered microcalcifications. There is no skin thickening or nipple retraction. No pathologic lymphadenopathy is identified. IMPRESSION: No mammographic evidence of malignancy. BI-RADS 2. Benign findings. Yearly mammographic imaging is recommended. * 0 (ZERO) - ASSESSMENT INCOMPLETE; ADDITIONAL IMAGING IS NEEDED. * 1/1 (ONE) - NEGATIVE. * 2/II (TWO) - BENIGN FINDINGS. * 3/III (THREE) - PROBABLY BENIGN FINDING; SHORT INTERVAL FOLLOW-UP SUGGESTED. * 4/IV (FOUR) - SUSPICIOUS ABNORMALITY; BIOPSY SHOULD BE CONSIDERED. * 5/V (FIVE) - HIGHLY SUSPICIOUS OF MALIGNANCY; BIOPSY SHOULD BE PERFORMED. * 6/ (SIX) - KNOWN MALIGNANCY. A NEGATIVE X-RAY REPORT SHOULD NOT DELAY BIOPSY IF A DOMINANT OR CLINICALLY SUSPICIOUS MASS IS PRESENT; 4 TO 8 PERCENT OF CANCERS ARE NOT IDENTIFIED BY X-RAY. A NEGA TIVE REPORT MAY REINFORCE THE CLINICAL IMPRESSION. ADENOSIS AND DENSE BREASTS MAY OBSCURE AN UNDERLY ING NEOPLASM. Reported By:
== END ==
LOC: RAD 14:09
PROVIDERS: ATTEND Internal Medicine
DX: Z12.31 Encounter for screening mammogram for malignant neoplasm of breast (principal)
CPT/HCPCS: 77067

== ENCOUNTER 2017-12-04 10:42 | Day surgery (SDC) | payer OTHER, BC ==
[~2017-12-04 10:42] MED LIST: VERSED ONE
[2017-12-04] MEDS ORDERED: TETRACAINE 0.5% OPHTH 1 DOSE AFFEYE ONE ×3 (10:55→13:35)
[2017-12-04] MEDS ORDERED: NS 500 ML IV 500 ML IV ONE (10:56)
[2017-12-04] MEDS ORDERED: VIGAMOX 0.5% OPHTH 1 DOSE AFFEYE ONE ×3 (10:56→11:06)
[2017-12-04] MEDS ORDERED: PROLENSA OPHTH 1 DOSE AFFEYE ONE (11:08)
[2017-12-04] MEDS ORDERED: ALPHAGAN-P OPHTH 1 DOSE AFFEYE ONE (11:09)
[2017-12-04] MEDS ORDERED: CYCLOGYL 1% OPHTH 1 DOSE OP ONE ×6 (11:11→11:16)
[2017-12-04] MEDS ORDERED: AK-DILATE 2.5% OPHTH 1 DOSE OP ONE ×6 (11:11→11:16)
[2017-12-04] MEDS ORDERED: MYDRIACIL OPHTH 1 DOSE AFFEYE ONE ×6 (11:11→11:16)
[2017-12-04] MEDS ORDERED: BETADINE OPHTH SOLN 5% EACHEYE ONE (13:30)
[2017-12-04] MEDS ORDERED: XYLOCAINE-MPF 1% IJ ONE (13:35)
[2017-12-04] MEDS ORDERED: DUOVISC IO ONE (13:35)
[2017-12-04] MEDS ORDERED: ADRENALINE CHL INJ IJ ONE (13:35)
[2017-12-04] MEDS ORDERED: VIGAMOX 0.5% AFFEYE ONE ×2 (13:39→13:48)
[2017-12-04] MEDS ORDERED: BSS OPHTH (PLAIN) 500 ML with VANCOMYCIN HCL 500 MG VIAL 25 MG, ADRENALINE CHL INJ 1 MG IR ONE ×3 (13:40)
[2017-12-04] MEDS ORDERED: VISCOAT 0.5 ML IO ONE (13:47)
[2017-12-04 15:36] VITALS: BP 162/78
== END 2017-12-04 14:13 | disposition home or self-care (01) ==
LOC: SURG1 10:42
PROVIDERS: ATTEND Ophthalmology
PROC: 08DK3ZZ Extraction of Left Lens, Percutaneous Approach (ICD-10-PCS; principal; 2017-12-04 15:45)
PROC: 08RK3JZ Replacement of Left Lens with Synthetic Substitute, Percutaneous Approach (ICD-10-PCS; principal; 2017-12-04 15:45)
DX: H25.12 Age-related nuclear cataract, left eye (principal); H25.012 Cortical age-related cataract, left eye; H25.042 Posterior subcapsular polar age-related cataract, left eye; H52.222 Regular astigmatism, left eye
CPT/HCPCS: 99100; A9270; A4217; J0170; J2250; J3370

== ENCOUNTER 2017-12-25 08:22 | Day surgery (SDC) | payer OTHER, BC ==
[2017-12-25] MEDS ORDERED: NS 500 ML IV 500 ML IV ONE (08:42)
[2017-12-25] MEDS ORDERED: TETRACAINE 0.5% OPHTH 1 DOSE AFFEYE ONE ×2 (08:45→11:42)
[2017-12-25] MEDS ORDERED: VIGAMOX 0.5% OPHTH 1 DOSE AFFEYE ONE ×5 (08:50→12:35)
[2017-12-25] MEDS ORDERED: PROLENSA OPHTH 1 DOSE AFFEYE ONE (09:01)
[2017-12-25] MEDS ORDERED: ALPHAGAN-P OPHTH 1 DOSE AFFEYE ONE (09:02)
[2017-12-25] MEDS ORDERED: CYCLOGYL 1% OPHTH 1 DOSE OP ONE ×3 (09:03→09:05)
[2017-12-25] MEDS ORDERED: MYDRIACIL OPHTH 1 DOSE AFFEYE ONE ×3 (09:03→09:05)
[2017-12-25] MEDS ORDERED: AK-DILATE 2.5% OPHTH 1 DOSE OP ONE ×3 (09:03→09:05)
[2017-12-25] MEDS ORDERED: XYLOCAINE 1 % (PLAIN) ONE (09:30)
[2017-12-25] MEDS ORDERED: VERSED ONE (09:30)
[2017-12-25] MEDS ORDERED: DIPRIVAN VIAL ONE (09:30)
[2017-12-25] MEDS ORDERED: BETADINE OPHTH SOLN 5% EACHEYE ONE (11:49)
[2017-12-25] MEDS ORDERED: DUOVISC IO ONE (12:21)
[2017-12-25] MEDS ORDERED: BSS OPHTH (PLAIN) 500 ML with VANCOMYCIN HCL 500 MG VIAL 25 MG, ADRENALINE CHL INJ 1 MG IR ONE ×3 (12:21)
[2017-12-25] MEDS ORDERED: ADRENALINE CHL INJ IJ ONE (12:21)
[2017-12-25] MEDS ORDERED: XYLOCAINE-MPF 1% IJ ONE (12:21)
[2017-12-25 15:55] VITALS: BP 160/75
== END 2017-12-25 13:00 | disposition home or self-care (01) ==
LOC: SURG1 08:22
PROVIDERS: ATTEND Ophthalmology
PROC: 08DJ3ZZ Extraction of Right Lens, Percutaneous Approach (ICD-10-PCS; principal; 2017-12-25 13:30)
PROC: 08RJ3JZ Replacement of Right Lens with Synthetic Substitute, Percutaneous Approach (ICD-10-PCS; principal; 2017-12-25 13:30)
DX: H25.11 Age-related nuclear cataract, right eye (principal); H25.011 Cortical age-related cataract, right eye; H25.041 Posterior subcapsular polar age-related cataract, right eye; H52.221 Regular astigmatism, right eye
CPT/HCPCS: 99100; A9270; A4217; J0170; J2001; J2250; J3370; J3490

== ENCOUNTER 2018-02-05 14:43 | Observation (INO) | payer OTHER, BC ==
[2018-02-05 14:47] VITALS: BMI 34.3
[2018-02-05 15:14] LABS: BASOPHILS # (AUTO) 0.1 X10^3/uL (0.0-0.1); BASOPHILS % (AUTO) 1.2 % (0.2-1.0); EOSINOPHILS # (AUTO) 0.2 x10^3/uL (0.0-0.2); EOSINOPHILS % (AUTO) 2.4 % (0.9-2.9); HEMATOCRIT 34.3 % (36.0-47.0); HEMOGLOBIN 11.6 g/dL (12.0-16.0); LYMPHOCYTES # (AUTO) 1.7 X10^3/uL (1.3-2.9); LYMPHOCYTES % (AUTO) 20.3 % (21.0-51.0); MEAN CORPUSCULAR HEMOGLOBIN 31.9 pg (27.0-34.0); MEAN CORPUSCULAR HGB CONC 33.9 g/dL (33.0-35.0); MEAN CORPUSCULAR VOLUME 94.1 fL (80.0-100.0); MEAN PLATELET VOLUME 9.4 fL (7.4-11.0); MONOCYTES # (AUTO) 0.7 x10^3/uL (0.3-0.8); MONOCYTES % (AUTO) 8.2 % (0.0-13.0); NEUTROPHILS # (AUTO) 5.8 x10^3/uL (2.2-4.8); NEUTROPHILS % (AUTO) 67.9 % (42.0-75.0); PLATELET COUNT 183 X10^3/uL (150.0-450.0); RED BLOOD COUNT 3.64 X10^6/uL (3.5-5.4); RED CELL DISTRIBUTION WIDTH 14.8 % (11.6-16.5); WHITE BLOOD COUNT 8.5 X10^3/uL (3.6-10.0)
[2018-02-05 15:31] LABS: BLOOD UREA NITROGEN 32 mg/dL (7-18); CALCIUM 8.3 mg/dL (8.5-10.1); CARBON DIOXIDE 24.9 mmol/L (21-32); CHLORIDE 106 mmol/L (98-107); COR NA(FOR HYPERGLY) 142 mmol/L (136-145); CREATININE 1.84 mg/dL (0.55-1.02); SODIUM 141 mmol/L (136-145); TROPONIN I < 0.02 ng/mL (0-1.5); eGFR BLACK RACES 34 (>60); eGFR NON BLACK RACES 28 (>60)
[2018-02-05 15:35] LABS: ALANINE AMINOTRANSFERASE 22 Units/L (12-78); ALBUMIN 3.6 g/dL (3.4-5.0); ALKALINE PHOSPHATASE 108 Units/L (46-116); ASPARTATE AMINO TRANSFERASE 21 Units/L (15-37); CKMB % 2.3 % (<4); CREATINE KINASE 60 Units/L (26-192); CREATINE KINASE MB 1.4 ng/mL (0-4.0); MAGNESIUM 1.8 mg/dL (1.7-2.9); TOTAL PROTEIN 7.2 g/dL (6.4-8.2)
--- NOTE | 2018-02-05 15:59 | RAD ---
HISTORY: Chest tightness and shortness of breath Study: Single-view chest Comparison: 02/06/2017 Findings: The trachea is midline. The cardiac silhouette appears enlarged in size which may be in part secondar y to patient's large hiatal hernia. However, this finding is stable when compared to prior exam. Ther e is right paratracheal stripe soft tissue prominence which could reflect a torturous and/or ectatic thoracic aorta. The lungs are clear. No acute infiltrate, consolidation, or pleural effusion is ident ified. The bony structures are grossly intact. Postsurgical changes of the left shoulder are noted. IMPRESSION: 1. No acute cardiopulmonary process evident. Please see above discussion Reported By:
[2018-02-05] MEDS ORDERED: ASPIRIN EC 81 MG PO ONE (16:18)
[2018-02-05] MEDS ORDERED: PEPCID 20 MG IV PREMIX* 20 MG/50 ML BAG IV ONE ×2 (16:23→16:31)
--- NOTE | 2018-02-05 16:23 | DR.CP ---
HPI - Time Seen Time seen: 15:00 - PCP Primary Care Physician: ELLIOT - HPI Comment HPI Comment: SINCE 05:00AM TODAY, PATIENT IS HAVING BRNING SENSATION IN HER CHEST RADIATING TO LEFT NECK ASSOCIATED WITH SOB. PAIN IS LESS INTENSE CURRENTLY. NO URI SYMTOMS. PATIENT DID NOT TAKE ANY MEDICATION FOR PAIN. WENT TO SEE PCP AND SENT TO ED FOR CHEST PAIN WORK UP. - Complaint Chief Complaint Doctor Comments: CHEST PAIN TIMES SEVERAL HOURS. Chief Complaint:: PT. C/O TIGHTNESS IN CHEST AND SHORTNESS OF BREATH WHICH BEGAN AT 0500. PT. STATES SHE IS HAVING A BURNING AND STINGING SENSATION TO LEFT SIDE OF NECK. - Reviewed Nurses Notes Review: Yes - Source History Provided: Patient - Mode of Arrival Mode of Arrival: Ambulatory - Timing Onset of Chief Complaint: 02/05/18 Came on: Suddenly Pain: Present Now - Duration Duration: Constant Duration: Hours - Location Location of Chest Pain: Left, Chest Chest Pain Radiation Location: Neck - Context Onset: At rest Cardiac Risk Factors: HTN PE Risk Factors: None History of: Angina Prehospital Care: None - Quality Quality: Burning - Severity Severity: Moderate - Modifying Factors Worsens: Nothing Impoves: Nothing - Associated Signs and Symptoms Associated Signs and Symptoms: Shortness of Breath PMH - PMH Past Medical History: Yes Past Medical History: Anemia, Arthritis, CHF, Coronary Artery Disease, GERD, Hypertension, Kidney Stones, Sleep Apnea Past Surgical History: Yes Surgical History: Cholecystectomy, Hysterectomy, Ortho Surgery - Family History History of Family Medical Conditions: Yes Family Medical History: Cancer - Social History Does patient currently use any type of tobacco product: No Have you used tobacco products in the last 12 months: No Type of Tobacco Use: None Does any household member use tobacco: No Alcohol Use: None Do you use any recreational Drugs:: No Lives With: Alone Lives Where: Home - infectious screening In the last 2 months have you had wt loss of >10#?: NO Have you had fever, night sweats or hemotysis?: No Have you traveled outside the country in the last 6 months?: No Isolation: Standard ROS - Review of Systems Constitutional: Weakness, Fatigue. negative: Chills, Diaphoresis, Fever, Malaise Eyes: No Symptoms Reported. negative: Eye Pain, Discharge ENTM: No Symptoms Reported. negative: Ear Pain, Nose Discharge, Nose Congestion , Throat Pain Respiratoy: Short of Breath. negative: Productive Cough, Non-Productive Cough, Wheezing, Hemoptysis Cardiovascular: Chest Pain, Edema. negative: Palpitations Gastrointestinal/Abdominal: negative: Abdominal Pain, Constipation, Diarrhea, Nausea, Vomiting Genitourinary: negative: Dysuria, Hematuria Neurological: Weakness. negative: Headache, Dizziness Musculoskeletal: No Symptoms Reported Integumentary: No Symptoms Reported Hematologic/Lymphatic: No Symptoms Reported Endocrine: No Symptoms Reported All Other Systems: Reviewed and Negative PE - Vitals Vitals: Temperature 98.2 F Pulse Rate [Apical] 69 Pulse Rate 86 Respiratory Rate 20 Blood Pressure [Left Arm] 182/78 Blood Pressure [Right Arm] 183/78 Blood Pressure 193/86 O2 Sat by Pulse Oximetry 99 - General Limitations: No Limitations General Appearance: Alert - Head Head Exam: Normal Inspection - Eyes Eye exam: Normal Appearance - ENT ENT Exam: Normal External Ear Exam - Chest Chest Inspection: Symmetric Chest Wall Rise - Respiratory Respiratory Exam: Normal Lung Sounds Bilat Respiratory Exam: Bilateral Clear to Auscultation - Cardiovascular Cardiovascular Exam: Regular Rate, Normal Rhythm, Normal Heart Sounds Pulse: Normal, Radial, Femoral Edema: Normal - Abdominal Exam Abdominal Exam: Normal Bowel Sounds, Soft. negative: Tenderness - Extremities Extremities Exam: Edema. negative: Calf Tenderness - Back Back Exam: Normal Inspection - Neurologic Neurological Exam: Alert, Oriented X3, CN II-XII Intact. negative: Motor Sensory Deficit - Skin Skin Exam: Normal Color MDM - Additional Information Additional Information Obtained From: Family - Differential Diagnosis Differential Diagnosis: Angina, Esophageal Reflux/Spasm, Gastritis, Pericarditis , Pleuritis, Pancreatitis, Pneumonia, Pneumothorax Course - Treatment Treatment: SEE ORDERS, - Consultation Consultation Comments: PATIENT WILL BE ADMITTED TO DR. MCCOY SERVICE. - Education/Counseling Education/Counseling: Patient, Family, Education Educated On: Treatment, Diagnosis, Needs for Follow Up ROR - Labs Reviewed Laboratory Results Reviewed?: Yes Result Diagrams: 02/05/18 14:55 02/05/18 14:55 Laboratory: WBC 8.5 X10^3/uL (3.6-10.0) 02/05/18 14:55 RBC 3.64 X10^6/uL (3.5-5.4) 02/05/18 14:55 Hgb 11.6 g/dL (12.0-16.0) L 02/05/18 14:55 Hct 34.3 % (36.0-47.0) L 02/05/18 14:55 MCV 94.1 fL (80.0-100.0) 02/05/18 14:55 MCH 31.9 pg (27.0-34.0) 02/05/18 14:55 MCHC 33.9 g/dL (33.0-35.0) 02/05/18 14:55 RDW 14.8 % (11.6-16.5) 02/05/18 14:55 Plt Count 183 X10^3/uL (150.0-450.0) 02/05/18 14:55 MPV 9.4 fL (7.4-11.0) 02/05/18 14:55 Neut % (Auto) 67.9 % (42.0-75.0) 02/05/18 14:55 Lymph % (Auto) 20.3 % (21.0-51.0) L 02/05/18 14:55 [place] % (Auto) 8.2 % (0.0-13.0) 02/05/18 14:55 Eos % (Auto) 2.4 % (0.9-2.9) 02/05/18 14:55 Baso % (Auto) 1.2 % (0.2-1.0) H 02/05/18 14:55 Neut # (Auto) 5.8 x10^3/uL (2.2-4.8) H 02/05/18 14:55 Lymph # (Auto) 1.7 X10^3/uL (1.3-2.9) 02/05/18 14:55 [place] # (Auto) 0.7 x10^3/uL (0.3-0.8) 02/05/18 14:55 Eos # (Auto) 0.2 x10^3/uL (0.0-0.2) 02/05/18 14:55 Baso # (Auto) 0.1 X10^3/uL (0.0-0.1) 02/05/18 14:55 Absolute Nucleated RBC 0.2 /100WBC 02/05/18 14:55 INR Target Range - 02/05/18 14:55 INR 1.01 (0.8-1.3) 02/05/18 14:55 APTT 26.7 SECONDS (22.9-36.5) 02/05/18 14:55 PTT Comment - 02/05/18 14:55 Sodium 141 mmol/L (136-145) 02/05/18 14:55 Corrected Sodium 142 mmol/L (136-145) 02/05/18 14:55 Potassium 4.0 mmol/L (3.5-5.1) 02/05/18 14:55 Chloride 106 mmol/L (98-107) 02/05/18 14:55 Carbon Dioxide 24.9 mmol/L (21-32) 02/05/18 14:55 BUN 32 mg/dL (7-18) H 02/05/18 14:55 Creatinine 1.84 mg/dL (0.55-1.02) H 02/05/18 14:55 Est GFR (MDRD) Af Amer 34 (>60) L 02/05/18 14:55 Est GFR (MDRD) Non-Af 28 (>60) L 02/05/18 14:55 Glucose 145 mg/dL (65-99) H 02/05/18 14:55 Calcium 8.3 mg/dL (8.5-10.1) L 02/05/18 14:55 Corrected Calcium TNP 02/05/18 14:55 Magnesium 1.8 mg/dL (1.7-2.9) 02/05/18 14:55 Total Bilirubin 0.40 mg/dL (0.2-1.0) 02/05/18 14:55 AST 21 Units/L (15-37) 02/05/18 14:55 ALT 22 Units/L (12-78) 02/05/18 14:55 Alkaline Phosphatase 108 Units/L (46-116) 02/05/18 14:55 Creatine Kinase 60 Units/L (26-192) 02/05/18 14:55 CK-MB (CK-2) 1.4 ng/mL (0-4.0) 02/05/18 14:55 CK/CKMB % Calc 2.3 % (<4) 02/05/18 14:55 Troponin I < 0.02 ng/mL (0-1.5) 02/05/18 14:55 Total Protein 7.2 g/dL (6.4-8.2) 02/05/18 14:55 Albumin 3.6 g/dL (3.4-5.0) 02/05/18 14:55 Globulin 3.6 g/dL (2.5-4.5) 02/05/18 14:55 Albumin/Globulin Ratio 1.0 Ratio (1.1-2.1) L 02/05/18 14:55 - XRAY XRAY Findings: REPORT DISCUSS WITH PATIENT. - EKG Rhythm: NSR (EKG NOTED.) - Diagnosis Discharge Problem: Chest pain Qualifiers: Chest pain type: precordial pain Qualified Code(s): R07.2 - Precordial pain - Discharge Plan Disposition: ADMITTED INPATIENT Condition: Stable - Follow ups/Referrals - Instructions
[2018-02-05] MEDS ORDERED: ASPIRIN 81 MG CHEWTAB ONE (16:31)
[2018-02-05] MEDS ORDERED: LOPRESSOR TAB 50 MG ONE (16:50)
[2018-02-05] MEDS: NS 1000 ML 1,000 ML IV SCH (17:42)
[2018-02-05] MEDS: APRESOLINE TAB 25 MG PO SCH (20:16)
[2018-02-05] MEDS ORDERED: METOPROLOL TARTRATE PO SCH (21:00)
[2018-02-06 00:03] LABS: CKMB % 2.9 % (<4); CREATINE KINASE 45 Units/L (26-192); CREATINE KINASE MB 1.3 ng/mL (0-4.0); TROPONIN I < 0.02 ng/mL (0-1.5)
[2018-02-06 05:43] LABS: BASOPHILS # (AUTO) 0.1 X10^3/uL (0.0-0.1); BASOPHILS % (AUTO) 0.7 % (0.2-1.0); EOSINOPHILS # (AUTO) 0.3 x10^3/uL (0.0-0.2); EOSINOPHILS % (AUTO) 3.5 % (0.9-2.9); HEMATOCRIT 30.6 % (36.0-47.0); HEMOGLOBIN 10.6 g/dL (12.0-16.0); MEAN CORPUSCULAR HEMOGLOBIN 32.5 pg (27.0-34.0); MEAN CORPUSCULAR HGB CONC 34.5 g/dL (33.0-35.0); MEAN CORPUSCULAR VOLUME 94.1 fL (80.0-100.0); MEAN PLATELET VOLUME 9.9 fL (7.4-11.0); MONOCYTES # (AUTO) 0.7 x10^3/uL (0.3-0.8); MONOCYTES % (AUTO) 9.3 % (0.0-13.0); NEUTROPHILS # (AUTO) 4.6 x10^3/uL (2.2-4.8); NEUTROPHILS % (AUTO) 60.5 % (42.0-75.0); PLATELET COUNT 146 X10^3/uL (150.0-450.0); RED BLOOD COUNT 3.25 X10^6/uL (3.5-5.4); RED CELL DISTRIBUTION WIDTH 14.9 % (11.6-16.5); WHITE BLOOD COUNT 7.5 X10^3/uL (3.6-10.0)
[2018-02-06 05:45] LABS: ALANINE AMINOTRANSFERASE 17 Units/L (12-78); ALBUMIN 2.8 g/dL (3.4-5.0); ALKALINE PHOSPHATASE 83 Units/L (46-116); ASPARTATE AMINO TRANSFERASE 15 Units/L (15-37); BLOOD UREA NITROGEN 30 mg/dL (7-18); CALCIUM 7.7 mg/dL (8.5-10.1); CARBON DIOXIDE 23.6 mmol/L (21-32); CHLORIDE 109 mmol/L (98-107); CHOL/HDL RATIO 3.8 (0.0-5.0); CHOLESTEROL 138 mg/dL (0-200); COR CA(FOR HYPOALB) 8.7 mg/dL (8.5-10.1); CREATININE 1.54 mg/dL (0.55-1.02); HDL CHOLESTEROL 36 mg/dL (40-60); SODIUM 141 mmol/L (136-145); TOTAL PROTEIN 5.8 g/dL (6.4-8.2); TRIGLYCERIDES 71 mg/dL (0-150); eGFR BLACK RACES 42 (>60); eGFR NON BLACK RACES 35 (>60)
[2018-02-06] MEDS: NS 1000 ML 1,000 ML IV SCH ×2 (06:00→21:29)
[2018-02-06 06:07] LABS: CKMB % 2.5 % (<4); CREATINE KINASE 44 Units/L (26-192); CREATINE KINASE MB 1.1 ng/mL (0-4.0); TROPONIN I < 0.02 ng/mL (0-1.5)
[2018-02-06] MEDS: APRESOLINE TAB 25 MG PO SCH ×2 (08:54→21:22)
[2018-02-06] MEDS: HEMOCYTE-PLUS PO SCH (08:54)
[2018-02-06] MEDS: DIOVAN TAB 160 MG PO SCH (08:54)
[2018-02-06] MEDS: DEMADEX PO SCH (08:54)
[2018-02-06] MEDS: ZYLOPRIM PO SCH (08:55)
[2018-02-06] MEDS: ASPIRIN EC 81 MG PO SCH (08:55)
[2018-02-06] MEDS: LOPRESSOR TAB 50 MG PO SCH (08:55)
[2018-02-06] MEDS: HYDROCHLOROTHIAZIDE 25 MG TAB PO SCH (08:55)
[2018-02-06] MEDS ORDERED: [UNRECOGNIZED DRUG - OTHER] PO SCH (09:00)
[2018-02-06] MEDS ORDERED: VALSARTAN HYDROCHLOROTHIAZIDE PO SCH (09:00)
[2018-02-06] MEDS ORDERED: IRON PO SCH (09:00)
[2018-02-06] MEDS ORDERED: [UNRECOGNIZED DRUG - OTHER] PO SCH (09:00)
[2018-02-06] MEDS ORDERED: VIT BCOMP C PO SCH (09:00)
[2018-02-06] MEDS ORDERED: FOLIC AC PO SCH (09:00)
[2018-02-06] MEDS ORDERED: VASOTEC TAB 20 MG PO SCH (09:00)
[2018-02-06] MEDS ORDERED: TORSEMIDE 10 MG PO SCH (09:00)
--- NOTE | 2018-02-06 15:39 | VAS ---
Exam: Carotid Doppler exam History: 77-year-old female with dizziness. Evaluate for possible carotid artery stenosis. Comparison: None Findings: Mild degree of plaque is present in both carotid bulbs. On the right, peak systolic velocities in cm/sec of the right internal and common carotid arteries me asure 82 and 121 respectively. The greatest ICA/CCA ratio on the right is 0.71 On the left, peak systolic velocities in cm/sec of the left internal and common carotid arteries rupa ure 98 and the greatest ICA/CCA ratio on the left is 0.86. Antegrade flow is documented in patent vertebral arteries bilaterally. Impression: No hemodynamically significant carotid stenosis is seen on either side. Reported By:
[2018-02-07 06:17] LABS: BASOPHILS # (AUTO) 0.1 X10^3/uL (0.0-0.1); BASOPHILS % (AUTO) 0.9 % (0.2-1.0); EOSINOPHILS # (AUTO) 0.3 x10^3/uL (0.0-0.2); EOSINOPHILS % (AUTO) 3.3 % (0.9-2.9); HEMOGLOBIN 11.3 g/dL (12.0-16.0); LYMPHOCYTES # (AUTO) 1.8 X10^3/uL (1.3-2.9); LYMPHOCYTES % (AUTO) 22.8 % (21.0-51.0); MEAN CORPUSCULAR HEMOGLOBIN 32.4 pg (27.0-34.0); MEAN CORPUSCULAR HGB CONC 34.2 g/dL (33.0-35.0); MEAN CORPUSCULAR VOLUME 94.7 fL (80.0-100.0); MEAN PLATELET VOLUME 9.9 fL (7.4-11.0); MONOCYTES # (AUTO) 0.7 x10^3/uL (0.3-0.8); MONOCYTES % (AUTO) 9.4 % (0.0-13.0); NEUTROPHILS % (AUTO) 63.6 % (42.0-75.0); PLATELET COUNT 159 X10^3/uL (150.0-450.0); RED BLOOD COUNT 3.48 X10^6/uL (3.5-5.4); WHITE BLOOD COUNT 7.9 X10^3/uL (3.6-10.0)
[2018-02-07 06:54] LABS: ALANINE AMINOTRANSFERASE 18 Units/L (12-78); ALBUMIN 3.4 g/dL (3.4-5.0); ALKALINE PHOSPHATASE 101 Units/L (46-116); ASPARTATE AMINO TRANSFERASE 17 Units/L (15-37); BLOOD UREA NITROGEN 31 mg/dL (7-18); CALCIUM 8.2 mg/dL (8.5-10.1); CARBON DIOXIDE 24.1 mmol/L (21-32); CHLORIDE 106 mmol/L (98-107); COR NA(FOR HYPERGLY) 140 mmol/L (136-145); CREATININE 1.68 mg/dL (0.55-1.02); SODIUM 140 mmol/L (136-145); eGFR BLACK RACES 38 (>60); eGFR NON BLACK RACES 31 (>60)
[2018-02-07] MEDS: HYDROCHLOROTHIAZIDE 25 MG TAB PO SCH (09:41)
[2018-02-07] MEDS: DIOVAN TAB 160 MG PO SCH (09:41)
[2018-02-07] MEDS: HEMOCYTE-PLUS PO SCH (09:41)
[2018-02-07] MEDS: ZYLOPRIM PO SCH (09:41)
[2018-02-07] MEDS: ASPIRIN EC 81 MG PO SCH (09:41)
[2018-02-07] MEDS: DEMADEX PO SCH (09:42)
[2018-02-07] MEDS: APRESOLINE TAB 25 MG PO SCH (09:42)
[2018-02-07] MEDS: LOPRESSOR TAB 50 MG PO SCH (09:42)
[2018-02-07] MEDS: NS 1000 ML 1,000 ML IV SCH (11:16)
[2018-02-07 11:24] VITALS: BP 160/75
--- NOTE | 2018-02-12 21:42 | DR.UPDATE ---
H&P Update History and Physical Update: History and Physical reviewed and patient examined. Changes noted: Yes with the following: was seen in the office on 01/16/18 for complaints of chest pain. She was sent to the ER for further evaluation. Patient presented to the ER with reports that symptoms started several hours prior to arrival to the hospital. Patient states pain started as a burning sensation and then radiated to left arm with associated shortness of breath. On arrival, vitals were 98.2, 86, 20, 98% RA, 193/86. Labs were obtained. Abnormal Labs include the following: Hgb 11.6, Hct 34.3, BUN 32, Creatinine 1.84, GFR af 34, GFR non 28, Glucose 145, Calcium 8.3, A/G Ratio 1.0. Cardiac enzymes within normal limits. EKG revealed: Sinus Rhythm. Left bundle branch block. Rate=82. Chest X-Ray revealed: No acute cardiopulmonary process evident. Patient admitted to the hospital as observation for further evaluation and treatment. Plans are to obtain serial cardiac enzymes and EKG s. Patient placed on continuous cardiac cath technician and will follow up with labs in the morning.
--- NOTE | 2018-02-12 21:48 | PCM.PROG ---
Progress Note - Progress Note for Day of Date: 02/06/18 - Subjective Subjective: was admitted for chest pain, rule out myocardial infarction. Today, she is alert and oriented, lying in bed on morning rounds. She denies chest pain at the time. On examination, heart is regular in rate and rhythm. Bilateral lungs are clear to auscultation. Abdomen is round, soft, and non-tender with normal bowel sounds noted in all quadrants. Her vitals this morning are 98.6-60-20-96%-1769/78. Labs were obtained. Abnormal lab values include the following: rbc 3.25, hgb 10.6, hct 30.6, plt count 146, chloride 109 , bun 30, creatinine 1.54, calcium 7.7, total protein 5.8, albumin 2.8. cardiac enzymes and EKGs have been within normal limits. Today, we plan to obtain an echocardiogram and a carotid doppler. Otherwise, we will continue with current plan of care. We will follow up with AM labs and continue to monitor patient. - Past Medical Family Social History Past Med/Fam/Surg Hx: No changes since H&P Allergies: Allergies cephalexin [From Keflex] Allergy (Verified 04/02/17 13:16) nitrofurantoin [From Macrobid] Allergy (Verified 04/02/17 13:16) - Review of Systems ROS: No change since H&P - Vital Signs and I&O's Vital Signs: Temperature 97.6 F Pulse Rate [Right Brachial] 56 Pulse Rate [Apical] 61 Pulse Rate 86 Respiratory Rate 20 Blood Pressure [Left Arm] 172/72 Blood Pressure [Right Arm] 160/75 Blood Pressure 193/86 O2 Sat by Pulse Oximetry 96 - Physical Exam Oriented: Normal Eyes: Normal Ear: Normal Nose: Normal Throat: Normal Respiratory: Normal Cardiovascular: Normal : Normal Auscultation: Bowel Sounds: Normal Palpation: Normal Tenderness: Normal Skin: Normal Musculoskeletal: Normal Psychiatric: Normal Affect: Normal Speech Pattern: Clear, Appropriate - Laboratory and Diagnostics Result Diagrams: 02/07/18 05:40 02/07/18 05:40 Labs: Laboratory WBC 7.9 X10^3/uL (3.6-10.0) 02/07/18 05:40 RBC 3.48 X10^6/uL (3.5-5.4) L 02/07/18 05:40 Hgb 11.3 g/dL (12.0-16.0) L 02/07/18 05:40 Hct 33.0 % (36.0-47.0) L 02/07/18 05:40 MCV 94.7 fL (80.0-100.0) 02/07/18 05:40 MCH 32.4 pg (27.0-34.0) 02/07/18 05:40 MCHC 34.2 g/dL (33.0-35.0) 02/07/18 05:40 RDW 15.0 % (11.6-16.5) 02/07/18 05:40 Plt Count 159 X10^3/uL (150.0-450.0) 02/07/18 05:40 MPV 9.9 fL (7.4-11.0) 02/07/18 05:40 Neut % (Auto) 63.6 % (42.0-75.0) 02/07/18 05:40 Lymph % (Auto) 22.8 % (21.0-51.0) 02/07/18 05:40 [place] % (Auto) 9.4 % (0.0-13.0) 02/07/18 05:40 Eos % (Auto) 3.3 % (0.9-2.9) H 02/07/18 05:40 Baso % (Auto) 0.9 % (0.2-1.0) 02/07/18 05:40 Neut # (Auto) 5.0 x10^3/uL (2.2-4.8) H 02/07/18 05:40 Lymph # (Auto) 1.8 X10^3/uL (1.3-2.9) 02/07/18 05:40 [place] # (Auto) 0.7 x10^3/uL (0.3-0.8) 02/07/18 05:40 Eos # (Auto) 0.3 x10^3/uL (0.0-0.2) H 02/07/18 05:40 Baso # (Auto) 0.1 X10^3/uL (0.0-0.1) 02/07/18 05:40 Absolute Nucleated RBC 0.0 /100WBC 02/07/18 05:40 INR Target Range - 02/05/18 14:55 INR 1.01 (0.8-1.3) 02/05/18 14:55 APTT 26.7 SECONDS (22.9-36.5) 02/05/18 14:55 PTT Comment - 02/05/18 14:55 Sodium 140 mmol/L (136-145) 02/07/18 05:40 Corrected Sodium 140 mmol/L (136-145) 02/07/18 05:40 Potassium 4.2 mmol/L (3.5-5.1) 02/07/18 05:40 Chloride 106 mmol/L (98-107) 02/07/18 05:40 Carbon Dioxide 24.1 mmol/L (21-32) 02/07/18 05:40 BUN 31 mg/dL (7-18) H 02/07/18 05:40 Creatinine 1.68 mg/dL (0.55-1.02) H 02/07/18 05:40 Est GFR (MDRD) Af Amer 38 (>60) L 02/07/18 05:40 Est GFR (MDRD) Non-Af 31 (>60) L 02/07/18 05:40 Glucose 114 mg/dL (65-99) H 02/07/18 05:40 Calcium 8.2 mg/dL (8.5-10.1) L 02/07/18 05:40 Corrected Calcium TNP 02/07/18 05:40 Magnesium 1.8 mg/dL (1.7-2.9) 02/05/18 14:55 Total Bilirubin 0.50 mg/dL (0.2-1.0) 02/07/18 05:40 AST 17 Units/L (15-37) 02/07/18 05:40 ALT 18 Units/L (12-78) 02/07/18 05:40 Alkaline Phosphatase 101 Units/L (46-116) 02/07/18 05:40 Creatine Kinase 44 Units/L (26-192) 02/06/18 04:30 CK-MB (CK-2) 1.1 ng/mL (0-4.0) 02/06/18 04:30 CK/CKMB % Calc 2.5 % (<4) 02/06/18 04:30 Troponin I < 0.02 ng/mL (0-1.5) 02/06/18 04:30 Total Protein 7.0 g/dL (6.4-8.2) 02/07/18 05:40 Albumin 3.4 g/dL (3.4-5.0) 02/07/18 05:40 Globulin 3.6 g/dL (2.5-4.5) 02/07/18 05:40 Albumin/Globulin Ratio 0.9 Ratio (1.1-2.1) L 02/07/18 05:40 Triglycerides 71 mg/dL (0-150) 02/06/18 04:30 Cholesterol 138 mg/dL (0-200) 02/06/18 04:30 LDL Cholesterol, Calc 88 mg/dL (0-100) 02/06/18 04:30 HDL Cholesterol 36 mg/dL (40-60) L 02/06/18 04:30 Cholesterol/HDL Ratio 3.8 (0.0-5.0) 02/06/18 04:30 - Plan (1) Chest pain Status: Acute Qualifiers: Chest pain type: precordial pain Qualified Code(s): R07.2 - Precordial pain Plan: obtain echo and carotoid doppler, continue telemetry and supplemental oxygen, continue to monitor
== END 2018-02-07 12:05 | disposition home or self-care (01) ==
LOC: ER 14:54 → MED/SURG 16:16
PROVIDERS: ADMIT Internal Medicine; ATTEND Internal Medicine
DX: R07.2 Precordial pain (principal); D64.89 Other specified anemias; R94.4 Abnormal results of kidney function studies; E11.65 Type 2 diabetes mellitus with hyperglycemia; R42 Dizziness and giddiness; I44.7 Left bundle-branch block, unspecified; R06.02 Shortness of breath; I25.10 Atherosclerotic heart disease of native coronary artery without angina pectoris; K21.9 Gastro-esophageal reflux disease without esophagitis; I10 Essential (primary) hypertension; I50.9 Heart failure, unspecified; R94.31 Abnormal electrocardiogram [ECG] [EKG]; Z79.01 Long term (current) use of anticoagulants
CPT/HCPCS: 36415; 71045; 80053; 80061; 82550; 82553; 83735; 84484; 85025; 85610; 85730; 93005; 93306; 93880; 94760; 96365; 96374; 99284; A4222; S0028; G0378

== ENCOUNTER 2023-03-30 22:09 | Inpatient (IN) ==
[2023-03-31 06:40] LABS: BASOPHILS # (AUTO) 0.1 X10^3/uL (0.0-0.1); EOSINOPHILS # (AUTO) 0.3 x10^3/uL (0.0-0.2); EOSINOPHILS % (AUTO) 3.6 % (0.9-2.9); HEMATOCRIT 20.7 % (36.0-47.0); LYMPHOCYTES # (AUTO) 1.5 X10^3/uL (1.3-2.9); LYMPHOCYTES % (AUTO) 19.2 % (21.0-51.0); MEAN CORPUSCULAR HEMOGLOBIN 32.1 pg (27.0-34.0); MEAN CORPUSCULAR HGB CONC 33.3 g/dL (33.0-35.0); MEAN CORPUSCULAR VOLUME 96.3 fL (80.0-100.0); MEAN PLATELET VOLUME 9.5 fL (7.4-11.0); MONOCYTES # (AUTO) 0.9 x10^3/uL (0.3-0.8); MONOCYTES % (AUTO) 10.7 % (0.0-13.0); NEUTROPHILS # (AUTO) 5.2 x10^3/uL (2.2-4.8); NEUTROPHILS % (AUTO) 65.5 % (42.0-75.0); PLATELET COUNT 151 X10^3/uL (150.0-450.0); RED BLOOD COUNT 2.14 X10^6/uL (3.5-5.4); RED CELL DISTRIBUTION WIDTH 15.4 % (11.6-16.5)
[2023-03-31 07:02] LABS: HEMOGLOBIN 6.9 g/dL (12.0-16.0)
[2023-03-31 07:11] LABS: ALBUMIN 2.9 g/dL (3.4-5.0); CALCIUM 7.7 mg/dL (8.5-10.1); CARBON DIOXIDE 21.8 mmol/L (21-32); COR CA(FOR HYPOALB) 8.6 mg/dL (8.5-10.1); CREATININE 2.55 mg/dL (0.55-1.02); POTASSIUM 4.2 mmol/L (3.5-5.1); TOTAL PROTEIN 5.2 g/dL (6.4-8.2)
[2023-03-31] MEDS: MILK OF MAGNESIA PO SCH ×3 (08:27→21:34)
[2023-03-31] MEDS ORDERED: NS 250 ML IV 250 ML IV ONE ×2 (10:11→15:04)
[2023-03-31] MEDS ORDERED: LASIX IVP ONE (10:48)
[2023-03-31] MEDS: PLAVIX PO SCH (14:02)
[2023-03-31] MEDS ORDERED: LASIX ONE (14:29)
[2023-03-31 14:42] VITALS: BMI 33.5
[2023-03-31 19:59] LABS: HEMATOCRIT 27.7 % (36.0-47.0)
[2023-03-31 20:01] LABS: HEMOGLOBIN 9.4 g/dL (12.0-16.0)
[2023-03-31] MEDS ORDERED: RESTORIL CAP 15 MG PO PRN (21:09)
[2023-03-31] MEDS: HEMOCYTE-PLUS PO SCH (21:32)
[2023-03-31] MEDS: LOPRESSOR TAB 50 MG PO SCH (21:34)
[2023-03-31] MEDS: PEPCID TAB 20 MG PO SCH (21:34)
[2023-03-31] MEDS: COLACE CAP 100 MG PO SCH (21:34)
[2023-04-01] MEDS: SYNTHROID 25 mcg TAB PO SCH (06:00)
[2023-04-01 06:24] LABS: BASOPHILS % (AUTO) 0.6 % (0.2-1.0); EOSINOPHILS # (AUTO) 0.4 x10^3/uL (0.0-0.2); HEMATOCRIT 28.7 % (36.0-47.0); HEMOGLOBIN 9.7 g/dL (12.0-16.0); LYMPHOCYTES # (AUTO) 1.5 X10^3/uL (1.3-2.9); LYMPHOCYTES % (AUTO) 20.3 % (21.0-51.0); MEAN CORPUSCULAR HEMOGLOBIN 31.6 pg (27.0-34.0); MEAN CORPUSCULAR HGB CONC 33.7 g/dL (33.0-35.0); MEAN CORPUSCULAR VOLUME 93.5 fL (80.0-100.0); MEAN PLATELET VOLUME 9.1 fL (7.4-11.0); MONOCYTES # (AUTO) 0.7 x10^3/uL (0.3-0.8); MONOCYTES % (AUTO) 9.6 % (0.0-13.0); NEUTROPHILS # (AUTO) 4.8 x10^3/uL (2.2-4.8); NEUTROPHILS % (AUTO) 64.5 % (42.0-75.0); PLATELET COUNT 152 X10^3/uL (150.0-450.0); RED BLOOD COUNT 3.07 X10^6/uL (3.5-5.4); RED CELL DISTRIBUTION WIDTH 15.8 % (11.6-16.5); WHITE BLOOD COUNT 7.4 X10^3/uL (3.6-10.0)
[2023-04-01 06:44] LABS: ALANINE AMINOTRANSFERASE 13 Units/L (12-78); ALKALINE PHOSPHATASE 128 Units/L (46-116); ASPARTATE AMINO TRANSFERASE 15 Units/L (15-37); BLOOD UREA NITROGEN 65 mg/dL (7-18); CARBON DIOXIDE 24.1 mmol/L (21-32); CHLORIDE 107 mmol/L (98-107); COR CA(FOR HYPOALB) 8.8 mg/dL (8.5-10.1); CREATININE 2.29 mg/dL (0.55-1.02); GLUCOSE 106 mg/dL (65-99); POTASSIUM 4.4 mmol/L (3.5-5.1); SODIUM 142 mmol/L (136-145); TOTAL PROTEIN 5.4 g/dL (6.4-8.2); eGFR NON BLACK RACES 22 (>60)
[2023-04-01] MEDS: PLAVIX PO SCH (08:13)
[2023-04-01] MEDS: HYDROCHLOROTHIAZIDE 25 MG TAB PO SCH (08:14)
[2023-04-01] MEDS: LOPRESSOR TAB 50 MG PO SCH ×2 (08:14→21:26)
[2023-04-01] MEDS: MILK OF MAGNESIA PO SCH ×2 (08:14→21:27)
[2023-04-01] MEDS: ZYLOPRIM PO SCH (08:14)
[2023-04-01] MEDS: DIOVAN TAB 160 MG PO SCH (08:15)
[2023-04-01] MEDS: DEMADEX PO SCH (08:15)
--- NOTE | 2023-04-01 09:55 | PCM.PROG ---
Progress Note Progress Note for Day of Date of Exam: 03/31/23 Subjective Subjective: Patient is a 82-year-old female admitted for symptomatic anemia. This morning she is resting comfortably in bed. No acute events overnight. Her hemoglobin was 5.9 and she did receive 1 unit of packed red blood cells. Labs: Wbc 8, Hgb 6.9, Plt 151, Na 141, K 4.2, Creatinine 2.55, Glucose 113. Will restart home medications. Hemoglobin responded but still significantly low. Will order another 2 units of packed red blood cells to be transfused. Awaiting stool occult. Otherwise, continue with current treatment plan. Continue to closely monitor and follow up labs in the morning. Past Medical Family Social History Allergies: Allergies cephalexin [From Keflex] Allergy (Verified 04/02/17 13:16) nitrofurantoin [From Macrobid] Allergy (Verified 04/02/17 13:16) Review of Systems ROS changes noted: see HPI Vital Signs and I&O's Vital Signs: Vital Signs Temperature 98.2 F Temperature 97.9 F Pulse Rate [Left Radial] 66 Pulse Rate [Left Radial] 70 Respiratory Rate 20 Respiratory Rate 20 Blood Pressure [Left Arm] 164/68 Blood Pressure [Left Arm] 158/63 O2 Sat by Pulse Oximetry 99 O2 Sat by Pulse Oximetry 95 Intake and Output: Intake & Output 03/28/23 03/29/23 03/30/23 03/31/23 23:59 23:59 23:59 23:59 Intake Total 640 / 640 0 / 0 Balance 640 / 640 0 / 0 Physical Exam Oriented: Normal Eyes: Normal Nose: Normal Throat: Normal Respiratory: Normal Cardiovascular: Normal Auscultation: Bowel Sounds: Normal Palpation: Normal Tenderness: Normal Skin: Normal Musculoskeletal: Normal Speech Pattern: Clear and Appropriate Laboratory and Diagnostics Result Diagrams: 04/01/23 05:20 04/01/23 05:20 Labs: Laboratory WBC 8.0 X10^3/uL (3.6-10.0) 03/31/23 05:25 RBC 2.14 X10^6/uL (3.5-5.4) L 03/31/23 05:25 Hgb 6.9 g/dL (12.0-16.0) L* 03/31/23 05:25 Hct 20.7 % (36.0-47.0) L 03/31/23 05:25 MCV 96.3 fL (80.0-100.0) 03/31/23 05:25 MCH 32.1 pg (27.0-34.0) 03/31/23 05:25 MCHC 33.3 g/dL (33.0-35.0) 03/31/23 05:25 RDW 15.4 % (11.6-16.5) 03/31/23 05:25 Plt Count 151 X10^3/uL (150.0-450.0) 03/31/23 05:25 MPV 9.5 fL (7.4-11.0) 03/31/23 05:25 Neut % (Auto) 65.5 % (42.0-75.0) 03/31/23 05:25 Lymph % (Auto) 19.2 % (21.0-51.0) L 03/31/23 05:25 [place] % (Auto) 10.7 % (0.0-13.0) 03/31/23 05:25 Eos % (Auto) 3.6 % (0.9-2.9) H 03/31/23 05:25 Baso % (Auto) 1.0 % (0.2-1.0) 03/31/23 05:25 Neut # (Auto) 5.2 x10^3/uL (2.2-4.8) H 03/31/23 05:25 Lymph # (Auto) 1.5 X10^3/uL (1.3-2.9) 03/31/23 05:25 [place] # (Auto) 0.9 x10^3/uL (0.3-0.8) H 03/31/23 05:25 Eos # (Auto) 0.3 x10^3/uL (0.0-0.2) H 03/31/23 05:25 Baso # (Auto) 0.1 X10^3/uL (0.0-0.1) 03/31/23 05:25 Absolute Nucleated RBC 0.0 /100WBC 03/31/23 05:25 Sodium 141 mmol/L (136-145) 03/31/23 05:25 Corrected Sodium 141 mmol/L (136-145) 03/31/23 05:25 Potassium 4.2 mmol/L (3.5-5.1) 03/31/23 05:25 Chloride 107 mmol/L (98-107) 03/31/23 05:25 Carbon Dioxide 21.8 mmol/L (21-32) 03/31/23 05:25 BUN 77 mg/dL (7-18) H 03/31/23 05:25 Creatinine 2.55 mg/dL (0.55-1.02) H 03/31/23 05:25 Est GFR (MDRD) Af Amer 23 (>60) L 03/31/23 05:25 Est GFR (MDRD) Non-Af 19 (>60) L 03/31/23 05:25 Glucose 113 mg/dL (65-99) H 03/31/23 05:25 Calcium 7.7 mg/dL (8.5-10.1) L 03/31/23 05:25 Corrected Calcium 8.6 mg/dL (8.5-10.1) 03/31/23 05:25 Total Bilirubin 0.60 mg/dL (0.2-1.0) 03/31/23 05:25 AST 15 Units/L (15-37) 03/31/23 05:25 ALT 14 Units/L (12-78) 03/31/23 05:25 Alkaline Phosphatase 122 Units/L (46-116) H 03/31/23 05:25 Total Protein 5.2 g/dL (6.4-8.2) L 03/31/23 05:25 Albumin 2.9 g/dL (3.4-5.0) L 03/31/23 05:25 Globulin 2.3 g/dL (2.5-4.5) L 03/31/23 05:25 Albumin/Globulin Ratio 1.3 Ratio (1.1-2.1) 03/31/23 05:25 Blood Type Cancelled 03/31/23 07:00 Antibody Screen Cancelled 03/31/23 07:00 Crossmatch See Detail 03/31/23 07:00 Plan (1) Symptomatic anemia: Status: Acute Narrative Support Text: Transfuse 2 units packed red blood cells. Trend hgb.
[2023-04-01] MEDS ORDERED: PROTONIX INJ 40 MG VIAL IVP ONE (15:53)
[2023-04-01] MEDS: HEMOCYTE-PLUS PO SCH (21:25)
[2023-04-01] MEDS: PEPCID TAB 20 MG PO SCH (21:26)
[2023-04-01] MEDS: COLACE CAP 100 MG PO SCH (21:26)
[2023-04-01] MEDS: NYSTATIN POWDER TOP SCH (21:27)
[2023-04-02 04:08] VITALS: O2SAT 96
[2023-04-02 05:45] LABS: BASOPHILS # (AUTO) 0.1 X10^3/uL (0.0-0.1); BASOPHILS % (AUTO) 0.8 % (0.2-1.0); EOSINOPHILS # (AUTO) 0.4 x10^3/uL (0.0-0.2); EOSINOPHILS % (AUTO) 5.2 % (0.9-2.9); HEMATOCRIT 28.3 % (36.0-47.0); HEMOGLOBIN 9.6 g/dL (12.0-16.0); LYMPHOCYTES # (AUTO) 1.6 X10^3/uL (1.3-2.9); LYMPHOCYTES % (AUTO) 20.1 % (21.0-51.0); MEAN CORPUSCULAR HEMOGLOBIN 31.9 pg (27.0-34.0); MEAN CORPUSCULAR VOLUME 93.9 fL (80.0-100.0); MEAN PLATELET VOLUME 9.2 fL (7.4-11.0); MONOCYTES # (AUTO) 0.8 x10^3/uL (0.3-0.8); MONOCYTES % (AUTO) 10.2 % (0.0-13.0); NEUTROPHILS # (AUTO) 5.2 x10^3/uL (2.2-4.8); NEUTROPHILS % (AUTO) 63.7 % (42.0-75.0); PLATELET COUNT 156 X10^3/uL (150.0-450.0); RED BLOOD COUNT 3.02 X10^6/uL (3.5-5.4); RED CELL DISTRIBUTION WIDTH 15.8 % (11.6-16.5); WHITE BLOOD COUNT 8.1 X10^3/uL (3.6-10.0)
[2023-04-02 05:56] LABS: ALANINE AMINOTRANSFERASE 12 Units/L (12-78); ALBUMIN 2.8 g/dL (3.4-5.0); ALKALINE PHOSPHATASE 124 Units/L (46-116); ASPARTATE AMINO TRANSFERASE 14 Units/L (15-37); BLOOD UREA NITROGEN 61 mg/dL (7-18); CARBON DIOXIDE 25.1 mmol/L (21-32); CHLORIDE 108 mmol/L (98-107); CREATININE 2.03 mg/dL (0.55-1.02); GLUCOSE 103 mg/dL (65-99); POTASSIUM 4.4 mmol/L (3.5-5.1); SODIUM 143 mmol/L (136-145); TOTAL PROTEIN 5.1 g/dL (6.4-8.2); eGFR NON BLACK RACES 25 (>60)
[2023-04-02] MEDS: SYNTHROID 25 mcg TAB PO SCH (06:30)
--- NOTE | 2023-04-02 07:16 | PCM.PROG ---
Progress Note Progress Note for Day of Date of Exam: 04/01/23 Subjective Subjective: Patient is a 82-year-old female admitted for symptomatic anemia. This morning she is sitting in recliner. No acute events overnight. Labs: Wbc 7.4, Hgb 9.7, Plt 152, Na 142, K 4.4, Creatinine 2.29, Glucose 106. Pt received a total of 3 units packed red blood cells. Hemoglobin responded appropriately and is stable. Stool occult positive. General surgery-Dr Frias consulted for evaluation. Otherwise, continue with current treatment plan. Continue to closely monitor and follow up labs in the morning. Past Medical Family Social History Allergies: Allergies cephalexin [From Keflex] Allergy (Verified 04/02/17 13:16) nitrofurantoin [From Macrobid] Allergy (Verified 04/02/17 13:16) Review of Systems ROS changes noted: see HPI Vital Signs and I&O's Vital Signs: Vital Signs Temperature 97.7 F Temperature 97.7 F Pulse Rate [Left Radial] 61 Pulse Rate [Left Radial] 64 Respiratory Rate 18 Respiratory Rate 18 Blood Pressure [Left Arm] 143/63 Blood Pressure [Left Arm] 158/69 O2 Sat by Pulse Oximetry 96 O2 Sat by Pulse Oximetry 98 Intake and Output: Intake & Output 03/30/23 03/31/23 04/01/23 04/02/23 23:59 23:59 23:59 23:59 Intake Total 640 / 640 2670 / 2670 1650 / 1650 0 / 0 Balance 640 / 640 2670 / 2670 1650 / 1650 0 / 0 Physical Exam Oriented: Normal Eyes: Normal Nose: Normal Throat: Normal Respiratory: Normal Cardiovascular: Normal Auscultation: Bowel Sounds: Normal Tenderness: Normal Skin: Normal Musculoskeletal: Normal Speech Pattern: Clear and Appropriate Laboratory and Diagnostics Result Diagrams: 04/02/23 05:13 04/02/23 05:13 Labs: Laboratory WBC 8.1 X10^3/uL (3.6-10.0) 04/02/23 05:13 RBC 3.02 X10^6/uL (3.5-5.4) L 04/02/23 05:13 Hgb 9.6 g/dL (12.0-16.0) L 04/02/23 05:13 Hct 28.3 % (36.0-47.0) L 04/02/23 05:13 MCV 93.9 fL (80.0-100.0) 04/02/23 05:13 MCH 31.9 pg (27.0-34.0) 04/02/23 05:13 MCHC 34.0 g/dL (33.0-35.0) 04/02/23 05:13 RDW 15.8 % (11.6-16.5) 04/02/23 05:13 Plt Count 156 X10^3/uL (150.0-450.0) 04/02/23 05:13 MPV 9.2 fL (7.4-11.0) 04/02/23 05:13 Neut % (Auto) 63.7 % (42.0-75.0) 04/02/23 05:13 Lymph % (Auto) 20.1 % (21.0-51.0) L 04/02/23 05:13 [place] % (Auto) 10.2 % (0.0-13.0) 04/02/23 05:13 Eos % (Auto) 5.2 % (0.9-2.9) H 04/02/23 05:13 Baso % (Auto) 0.8 % (0.2-1.0) 04/02/23 05:13 Neut # (Auto) 5.2 x10^3/uL (2.2-4.8) H 04/02/23 05:13 Lymph # (Auto) 1.6 X10^3/uL (1.3-2.9) 04/02/23 05:13 [place] # (Auto) 0.8 x10^3/uL (0.3-0.8) 04/02/23 05:13 Eos # (Auto) 0.4 x10^3/uL (0.0-0.2) H 04/02/23 05:13 Baso # (Auto) 0.1 X10^3/uL (0.0-0.1) 04/02/23 05:13 Absolute Nucleated RBC 0.0 /100WBC 04/02/23 05:13 Sodium 143 mmol/L (136-145) 04/02/23 05:13 Corrected Sodium TNP 04/02/23 05:13 Potassium 4.4 mmol/L (3.5-5.1) 04/02/23 05:13 Chloride 108 mmol/L (98-107) H 04/02/23 05:13 Carbon Dioxide 25.1 mmol/L (21-32) 04/02/23 05:13 BUN 61 mg/dL (7-18) H 04/02/23 05:13 Creatinine 2.03 mg/dL (0.55-1.02) H 04/02/23 05:13 Est GFR (MDRD) Af Amer 30 (>60) L 04/02/23 05:13 Est GFR (MDRD) Non-Af 25 (>60) L 04/02/23 05:13 Glucose 103 mg/dL (65-99) H 04/02/23 05:13 Calcium 8.0 mg/dL (8.5-10.1) L 04/02/23 05:13 Corrected Calcium 9.0 mg/dL (8.5-10.1) 04/02/23 05:13 Total Bilirubin 0.50 mg/dL (0.2-1.0) 04/02/23 05:13 AST 14 Units/L (15-37) L 04/02/23 05:13 ALT 12 Units/L (12-78) 04/02/23 05:13 Alkaline Phosphatase 124 Units/L (46-116) H 04/02/23 05:13 Total Protein 5.1 g/dL (6.4-8.2) L 04/02/23 05:13 Albumin 2.8 g/dL (3.4-5.0) L 04/02/23 05:13 Globulin 2.3 g/dL (2.5-4.5) L 04/02/23 05:13 Albumin/Globulin Ratio 1.2 Ratio (1.1-2.1) 04/02/23 05:13 Stl Occult Blood (IFOB) Positive (NEGATIVE) A 03/31/23 19:00 Blood Type Cancelled 03/31/23 07:00 Antibody Screen Cancelled 03/31/23 07:00 Crossmatch See Detail 03/31/23 07:00 Plan (1) Symptomatic anemia: Status: Acute Narrative Support Text: Received total 3 units packed red blood cells.
[2023-04-02] MEDS: HYDROCHLOROTHIAZIDE 25 MG TAB PO SCH (08:55)
[2023-04-02] MEDS: PLAVIX PO SCH ×2 (08:55→09:59)
[2023-04-02] MEDS: DEMADEX PO SCH (08:55)
[2023-04-02] MEDS: LOPRESSOR TAB 50 MG PO SCH (08:55)
[2023-04-02] MEDS: DIOVAN TAB 160 MG PO SCH (08:56)
[2023-04-02] MEDS: ZYLOPRIM PO SCH (08:56)
[2023-04-02] MEDS ORDERED: XYLOCAINE 2 % (PLAIN) ONE (09:28)
[2023-04-02] MEDS ORDERED: DIPRIVAN VIAL 20 ML ONE (09:41)
[2023-04-02] MEDS: MILK OF MAGNESIA PO SCH (09:59)
[2023-04-02] MEDS: NYSTATIN POWDER TOP SCH (10:00)
[2023-04-02 10:06] VITALS: RESP 20
[2023-04-02 10:07] VITALS: BP 180/76; PULSE 61; TEMP 97.6
== END 2023-04-02 12:10 | disposition home or self-care (01) | DRG 812 ==
LOC: MED/SURG → OBSVTOIN 23:00
PROVIDERS: ADMIT Internal Medicine; ATTEND Internal Medicine
DX: Z79.01 Long term (current) use of anticoagulants; K44.9 Diaphragmatic hernia without obstruction or gangrene; R06.02 Shortness of breath; K29.00 Acute gastritis without bleeding; I10 Essential (primary) hypertension; D64.89 Other specified anemias; R07.9 Chest pain, unspecified; K92.2 Gastrointestinal hemorrhage, unspecified; N18.9 Chronic kidney disease, unspecified; R10.13 Epigastric pain

== ENCOUNTER 2023-07-13 10:05 | Inpatient (IN) ==
--- NOTE | 2023-07-13 10:49 | DR.SOBA ---
HPI Time Seen Time Seen by Provider: 07/13/23 10:30 Primary Care Physician Primary Care Physician: triston Complaints Chief Complaint Doctors Comments: This patient complained of progressive shortness of breath over the last week. She does have a history of COPD and CHF she also complaining of some increased swelling of her lower extremities left greater than right. She denies chest pain. Was seen by her primary care provider 3 days ago and was given a gram of Rocephin IM and told to increase her Lasix to twice a day. Chief Complaint:: patient c/o of sob and federico lower ext swelling that started sunday. Went and seen pcp sunday but just continues to get worse. increased sob with excertion. Self Treatment fo Chief Complaint: albuterol,cipro,torsamide COVID-19 Coronavirus risk:travel/contact w/high risk person: No Has patient experienced Coronavirus symptoms: No Source History Provided: Patient Mode of Arrival Mode of Arrival: Wheelchair Timing Onset of Chief Complaint: 07/08/23 PMH PMH Past Medical History: Yes Past Medical History: Anemia, Arthritis, CHF, Coronary Artery Disease, GERD, Hypertension, Kidney Stones and Sleep Apnea Past Surgical History: Yes Surgical History: Cholecystectomy, Hysterectomy, Ortho Surgery and Other Past Surgical History Comment: heart valve replaced Family History History of Family Medical Conditions: Yes Family Medical History: Diabetes Mellitus and Cancer Social History Does patient currently use any type of tobacco product: No Have you used tobacco products in the last 12 months: No Type of Tobacco Use: None Does any household member use tobacco: No Alcohol Use: None Do you use any recreational Drugs:: No Lives With: Alone Lives Where: Home Travel Risk Coronavirus risk:travel/contact w/high risk person: No Has patient experienced Coronavirus symptoms: No Infectious screening In the last 2 months have you had wt loss of >10#?: NO Have you had fever, night sweats or hemotysis?: No Have you traveled outside the country in the last 6 months?: No Isolation: Standard ROS Review of Systems Constitutional: Other (shortness of breath,bilateral lower leg edema) Eyes: No Symptoms Reported ENTM: No Symptoms Reported Respiratoy: Short of Breath Cardiovascular: No Symptoms Reported Gastrointestinal/Abdominal: No Symptoms Reported Genitourinary: No Symptoms Reported Neurological: No Symptoms Reported Musculoskeletal: Other (swelling of bilateral lower legs) Integumentary: Rash (left lower pascual) Hematologic/Lymphatic: No Symptoms Reported Endocrine: No Symptoms Reported Psychiatric: No Symptoms Reported PE Vital Signs Vitals: Vital Signs Temperature 98.9 F Pulse Rate 78 Pulse Rate 80 Pulse Rate 83 Pulse Rate 80 Pulse Rate 77 Pulse Rate 77 Pulse Rate 77 Pulse Rate 76 Pulse Rate 77 Pulse Rate 74 Pulse Rate 74 Pulse Rate 77 Pulse Rate 77 Pulse Rate 75 Pulse Rate 74 Pulse Rate 74 Pulse Rate 85 Pulse Rate 74 Pulse Rate 75 Pulse Rate 77 Pulse Rate 80 Respiratory Rate 28 Respiratory Rate 21 Respiratory Rate 36 Respiratory Rate 33 Respiratory Rate 36 Respiratory Rate 35 Respiratory Rate 35 Respiratory Rate 29 Respiratory Rate 35 Respiratory Rate 28 Respiratory Rate 26 Respiratory Rate 32 Respiratory Rate 30 Respiratory Rate 36 Respiratory Rate 26 Respiratory Rate 26 Respiratory Rate 38 Respiratory Rate 25 Respiratory Rate 23 Respiratory Rate 27 Respiratory Rate 24 Blood Pressure 171/75 Blood Pressure 174/77 Blood Pressure 157/75 Blood Pressure 163/73 Blood Pressure 169/76 Blood Pressure 165/77 Blood Pressure 175/74 Blood Pressure 167/81 Blood Pressure 151/86 O2 Sat by Pulse Oximetry 98 O2 Sat by Pulse Oximetry 97 O2 Sat by Pulse Oximetry 96 O2 Sat by Pulse Oximetry 96 O2 Sat by Pulse Oximetry 96 O2 Sat by Pulse Oximetry 97 O2 Sat by Pulse Oximetry 96 O2 Sat by Pulse Oximetry 98 O2 Sat by Pulse Oximetry 97 O2 Sat by Pulse Oximetry 97 O2 Sat by Pulse Oximetry 96 O2 Sat by Pulse Oximetry 96 O2 Sat by Pulse Oximetry 96 O2 Sat by Pulse Oximetry 96 O2 Sat by Pulse Oximetry 97 O2 Sat by Pulse Oximetry 97 O2 Sat by Pulse Oximetry 96 O2 Sat by Pulse Oximetry 97 General Limitations: No Limitations and Physical Limitation (gets sob upon minimal ambulation) General Appearance: In Distress (mild distress) Head Head Exam: Normal Inspection, Atraumatic and Normocephalic Eyes Eye exam: Normal Appearance and PERRL ENT ENT Exam: Normal Exam, Normal Oropharynx and Normal External Ear Exam Neck Neck Exam: Normal Inspection, Full ROM and Trachea Midline Chest Chest Inspection: Normal Inspection and Symmetric Chest Wall Rise Respiratory Respiratory Exam: Other (minimal bilateral wheezing) Respiratory Exam: Bilateral: Wheezing Cardiovascular Cardiovascular Exam: Regular Rate and Normal Rhythm Abdominal Exam Abdominal Exam: Normal Inspection, Normal Bowel Sounds and Soft Extremities Extremities Exam: Other (bilateral lower leg edema) Back Back Exam: Normal Inspection Neurologic Neurological Exam: Alert, Oriented X3 and CN II-XII Intact Psychiatric Psychiatric Exam: Normal Affect Skin Skin Exam: Warm, Dry and Erythema (left lower pascual) MDM Differential Diagnosis Differential Diagnosis: CHF, COPD, Pneumonia and Pulmonary embolism COURSE Treatment Treatment: This patient remained relatively stable during the ER visit. She was given Solu-Medrol 125 mg IV and was given a DuoNeb. Evaluation show the chest x-ray show cardiomegaly she does have a history of a hiatal hernia that was present. There was hazy and interstitial pulmonary opacities bilaterally that may represent edema versus pneumonia. EKG showed normal sinus rhythm with left bundle branch block which was unchanged from her previous EKG. This patient also had a BNP of 1070, troponin was 14.9, the D-dimer was 1.61 which was slightly elevated. Her BUN was 46 creatinine was 2.39 her blood sugar was 139 and her GFR was 21 this patient was to discuss with Dr. Walden at 1250 and he stated that the elevated D-dimer may be associated with her COPD and the CHF and since the patient was already on Plavix 75 mg orally daily to continue that. Stated that the individual could be given Lasix 40 mg IV in the emergency room and he will determine further use of Lasix during the rest of the hospital stay. The patient was notified of the intent to admit and was agreeable to the intent. There was a question of the patient being allergic to Keflex but she stated that she had no history that she knew about stating that she was allergic to Keflex. She was told that we intended to give her Rocephin 1 g IV daily and we will monitor her to see if she has any type of reaction to the Rocephin. She stated it was okay to try her on that medication to see if she does indeed have an allergic reaction. [facility]OR Labs Reviewed Laboratory Results Reviewed?: Yes 07/13/23 10:33 07/13/23 10:33 Laboratory: WBC 8.8 X10^3/uL (3.6-10.0) 07/13/23 10:33 RBC 2.82 X10^6/uL (3.5-5.4) L 07/13/23 10:33 Hgb 8.9 g/dL (12.0-16.0) L 07/13/23 10:33 Hct 27.4 % (36.0-47.0) L 07/13/23 10:33 MCV 97.2 fL (80.0-100.0) 07/13/23 10:33 MCH 31.6 pg (27.0-34.0) 07/13/23 10:33 MCHC 32.5 g/dL (33.0-35.0) L 07/13/23 10:33 RDW 16.2 % (11.6-16.5) 07/13/23 10:33 Plt Count 156 X10^3/uL (150.0-450.0) 07/13/23 10:33 MPV 8.9 fL (7.4-11.0) 07/13/23 10:33 Neut % (Auto) 81.0 % (42.0-75.0) H 07/13/23 10:33 Lymph % (Auto) 8.8 % (21.0-51.0) L 07/13/23 10:33 Bracken % (Auto) 7.5 % (0.0-13.0) 07/13/23 10:33 Eos % (Auto) 1.7 % (0.9-2.9) 07/13/23 10:33 Baso % (Auto) 1.0 % (0.2-1.0) 07/13/23 10:33 Neut # (Auto) 7.1 x10^3/uL (2.2-4.8) H 07/13/23 10:33 Lymph # (Auto) 0.8 X10^3/uL (1.3-2.9) L 07/13/23 10:33 Bracken # (Auto) 0.7 x10^3/uL (0.3-0.8) 07/13/23 10:33 Eos # (Auto) 0.2 x10^3/uL (0.0-0.2) 07/13/23 10:33 Baso # (Auto) 0.1 X10^3/uL (0.0-0.1) 07/13/23 10:33 Absolute Nucleated RBC 0.0 /100WBC 07/13/23 10:33 PT 15.0 SECONDS (11.8-14.3) 07/13/23 10:33 INR Target Range - 07/13/23 10:33 INR 1.20 (0.8-1.3) 07/13/23 10:33 APTT 27.0 SECONDS (22.9-36.5) 07/13/23 10:33 PTT Comment - 07/13/23 10:33 D-Dimer 1.61 ug/ml (0.0-0.57) H 07/13/23 10:33 Sodium 141 mmol/L (136-145) 07/13/23 10:33 Corrected Sodium 142 mmol/L (136-145) 07/13/23 10:33 Potassium 4.5 mmol/L (3.5-5.1) 07/13/23 10:33 Chloride 107 mmol/L (98-107) 07/13/23 10:33 Carbon Dioxide 24.7 mmol/L (21-32) 07/13/23 10:33 BUN 46 mg/dL (7-18) H 07/13/23 10:33 Creatinine 2.39 mg/dL (0.55-1.02) H 07/13/23 10:33 Est GFR (MDRD) Af Amer 25 (>60) L 07/13/23 10:33 Est GFR (MDRD) Non-Af 21 (>60) L 07/13/23 10:33 Glucose 130 mg/dL (65-99) H 07/13/23 10:33 Calcium 7.8 mg/dL (8.5-10.1) L 07/13/23 10:33 Corrected Calcium 8.4 mg/dL (8.5-10.1) L 07/13/23 10:33 Total Bilirubin 0.40 mg/dL (0.2-1.0) 07/13/23 10:33 AST 18 Units/L (15-37) 07/13/23 10:33 ALT 17 Units/L (12-78) 07/13/23 10:33 Alkaline Phosphatase 156 Units/L (46-116) H 07/13/23 10:33 Creatine Kinase 46 Units/L (26-192) 07/13/23 10:33 Troponin I High Sens 14.9 ng/L (4.0-60.0) 07/13/23 10:33 B-Natriuretic Peptide 1070 pg/mL (0-79) H 07/13/23 10:33 Total Protein 6.0 g/dL (6.4-8.2) L 07/13/23 10:33 Albumin 3.2 g/dL (3.4-5.0) L 07/13/23 10:33 Globulin 2.8 g/dL (2.5-4.5) 07/13/23 10:33 Albumin/Globulin Ratio 1.1 Ratio (1.1-2.1) 07/13/23 10:33 Opioid Opioid Risk Tool Age (Demar box if 16-45): No History of Preadolescent Sexual Abuse: No Total: 0 Total Score Risk Category: Low Risk Copyright: [facility] predicting aberrant behaviors Discharge Plan Diagnosis Discharge Problem: CHF (congestive heart failure), Pneumonia, D-dimer, elevated Discharge Plan Patient Disposition: ADMITTED INPATIENT Condition: Stable Prescriptions: No Action allopurinol [Zyloprim] 100 MG tablet 100 mg PO DAILY torsemide [Demadex] 10 MG tablet 10 mg PO DAILY albuterol sulfate 0.63 mg/3 mL solution for nebulization 0.63 mg TID ciprofloxacin HCl 750 mg tablet 750 mg PO BID clopidogrel 75 mg tablet 75 mg PO QDAY allopurinol 100 mg tablet 100 mg PO QDAY ferrous fumarate [Ferrocite] 324 mg (106 mg iron) tablet 324 mg PO QAM hydralazine 25 mg tablet 50 mg PO BID Health Concerns: Post Hospitalization: new medications and changes needed to prevent readmission or further decline. Pt educated and given instructions on all concerns. Plan of Treatment: Continue with present treatment and follow up plan. Pt is to keep follow up appointment as instructed and take medications as ordered. Orders to Discharge Patient Discharge Orders: Transfer (Routine); Ordered 07/13/23 Ordered By: Sagar Liz Follow ups/Referrals Follow ups/Referrals: [place] [Primary Care Provider] - 3 days Instructions Stand Alone Forms: Post Hospital Follow Up Care
[2023-07-13 11:09] LABS: BASOPHILS # (AUTO) 0.1 X10^3/uL (0.0-0.1); EOSINOPHILS # (AUTO) 0.2 x10^3/uL (0.0-0.2); EOSINOPHILS % (AUTO) 1.7 % (0.9-2.9); HEMATOCRIT 27.4 % (36.0-47.0); HEMOGLOBIN 8.9 g/dL (12.0-16.0); LYMPHOCYTES # (AUTO) 0.8 X10^3/uL (1.3-2.9); LYMPHOCYTES % (AUTO) 8.8 % (21.0-51.0); MEAN CORPUSCULAR HEMOGLOBIN 31.6 pg (27.0-34.0); MEAN CORPUSCULAR HGB CONC 32.5 g/dL (33.0-35.0); MEAN CORPUSCULAR VOLUME 97.2 fL (80.0-100.0); MEAN PLATELET VOLUME 8.9 fL (7.4-11.0); MONOCYTES # (AUTO) 0.7 x10^3/uL (0.3-0.8); MONOCYTES % (AUTO) 7.5 % (0.0-13.0); NEUTROPHILS # (AUTO) 7.1 x10^3/uL (2.2-4.8); PLATELET COUNT 156 X10^3/uL (150.0-450.0); RED BLOOD COUNT 2.82 X10^6/uL (3.5-5.4); RED CELL DISTRIBUTION WIDTH 16.2 % (11.6-16.5); WHITE BLOOD COUNT 8.8 X10^3/uL (3.6-10.0)
--- NOTE | 2023-07-13 11:11 | EKG ---
Test Reason : SOB Blood Pressure : */* mmHG Vent. Rate : 76 BPM Atrial Rate : 76 BPM P-R Int : 204 ms QRS Dur : 174 ms QT Int : 482 ms P-R-T Axes : 29 -3 131 degrees QTc Int : 542 ms Normal sinus rhythm Left bundle branch block Abnormal ECG No previous ECGs available Confirmed by Shamar Bray ([id number]) on 07/14/2023 10:19:37 AM Referred By: Confirmed By: Shamar Bray
[2023-07-13 11:23] LABS: ALBUMIN 3.2 g/dL (3.4-5.0); CALCIUM 7.8 mg/dL (8.5-10.1); CARBON DIOXIDE 24.7 mmol/L (21-32); COR CA(FOR HYPOALB) 8.4 mg/dL (8.5-10.1); CREATININE 2.39 mg/dL (0.55-1.02); POTASSIUM 4.5 mmol/L (3.5-5.1)
--- NOTE | 2023-07-13 11:24 | RAD ---
EXAM:CHEST, 1 VIEWHISTORY:SOB;COMPARISON:05/24/2023. br.br.br.br chestFINDINGS:Reversal left total shoulder arthroplasty noted. The cardiac silhouette is mildly enlarged. Known hiatal hernia. There are bilateral mid to lower lung predominant hazy and interstitial opacities. There is mild blunting of the right costophrenic sulcus. No pneumothorax. Aortic valve noted.IMPRESSION:Cardiomegaly. Known hiatal hernia.Hazy and interstitial pulmonary opacities may represent edema or pneumonia. Recommend follow-up imaging to document resolution after appropriate treatment.THIS IS AN ELECTRONICALLY VERIFIED FINAL [id number]/13/2023 11:21 AM - Electronically signed by Roberto Mcfarlane MD
[2023-07-13] MEDS ORDERED: ROCEPHIN VIAL 1 GRAM ONE (13:04)
[2023-07-13] MEDS ORDERED: ROCEPHIN VIAL 1 GRAM IV SCH (13:15)
[2023-07-13] MEDS ORDERED: LASIX IVP ONE ×2 (13:52→14:16)
[2023-07-13] MEDS ORDERED: ROCEPHIN VIAL 1 GRAM 1 G in NS 100 ML IV 100 ML IV SCH (14:15)
[2023-07-13 16:22] VITALS: BMI 37.5
[2023-07-13] MEDS ORDERED: DUONEB 0.5 MG/3 MG (3 mL) NEB ONE (19:26)
[2023-07-13] MEDS ORDERED: PULMICORT NEB TX 0.5 MG NEB ONE (19:26)
[2023-07-13] MEDS: PULMICORT NEB TX 0.5 MG NEB SCH (20:00)
[2023-07-13] MEDS: DUONEB 0.5 MG/3 MG (3 mL) NEB SCH (20:00)
[2023-07-14 06:55] LABS: BASOPHILS # (AUTO) 0.1 X10^3/uL (0.0-0.1); BASOPHILS % (AUTO) 0.8 % (0.2-1.0); EOSINOPHILS # (AUTO) 0.1 x10^3/uL (0.0-0.2); EOSINOPHILS % (AUTO) 1.1 % (0.9-2.9); HEMATOCRIT 26.7 % (36.0-47.0); HEMOGLOBIN 8.6 g/dL (12.0-16.0); LYMPHOCYTES # (AUTO) 1.1 X10^3/uL (1.3-2.9); LYMPHOCYTES % (AUTO) 9.4 % (21.0-51.0); MEAN CORPUSCULAR HEMOGLOBIN 31.2 pg (27.0-34.0); MEAN CORPUSCULAR HGB CONC 32.2 g/dL (33.0-35.0); MEAN CORPUSCULAR VOLUME 96.7 fL (80.0-100.0); MEAN PLATELET VOLUME 9.2 fL (7.4-11.0); MONOCYTES # (AUTO) 0.8 x10^3/uL (0.3-0.8); MONOCYTES % (AUTO) 7.1 % (0.0-13.0); NEUTROPHILS # (AUTO) 9.3 x10^3/uL (2.2-4.8); NEUTROPHILS % (AUTO) 81.6 % (42.0-75.0); PLATELET COUNT 152 X10^3/uL (150.0-450.0); RED BLOOD COUNT 2.75 X10^6/uL (3.5-5.4); RED CELL DISTRIBUTION WIDTH 16.1 % (11.6-16.5); WHITE BLOOD COUNT 11.3 X10^3/uL (3.6-10.0)
[2023-07-14 07:15] LABS: ALANINE AMINOTRANSFERASE 11 Units/L (12-78); ALKALINE PHOSPHATASE 145 Units/L (46-116); ASPARTATE AMINO TRANSFERASE 18 Units/L (15-37); BLOOD UREA NITROGEN 44 mg/dL (7-18); CALCIUM 7.9 mg/dL (8.5-10.1); CARBON DIOXIDE 24.3 mmol/L (21-32); CHLORIDE 105 mmol/L (98-107); COR CA(FOR HYPOALB) 8.7 mg/dL (8.5-10.1); CREATININE 2.18 mg/dL (0.55-1.02); GLUCOSE 105 mg/dL (65-99); POTASSIUM 4.1 mmol/L (3.5-5.1); SODIUM 139 mmol/L (136-145); TOTAL PROTEIN 5.8 g/dL (6.4-8.2); eGFR NON BLACK RACES 23 (>60)
[2023-07-14] MEDS: FERROUS GLUCONATE PO SCH (08:26)
[2023-07-14] MEDS: PLAVIX PO SCH (08:26)
[2023-07-14] MEDS: PULMICORT NEB TX 0.5 MG NEB SCH ×2 (08:49→21:45)
[2023-07-14] MEDS: DUONEB 0.5 MG/3 MG (3 mL) NEB SCH ×4 (08:49→21:45)
[2023-07-14] MEDS ORDERED: DEMADEX PO SCH (10:00)
[2023-07-14] MEDS: ZYLOPRIM PO SCH (11:00)
[2023-07-14] MEDS ORDERED: APRESOLINE TAB 25 MG PO SCH (11:00)
[2023-07-14] MEDS: HEMOCYTE-PLUS PO SCH (11:00)
[2023-07-14] MEDS: APRESOLINE TAB 25 MG PO SCH ×2 (11:00→20:54)
[2023-07-14] MEDS: ZOSYN VIAL 3.375 GRAMS 3.375 G in NS 100 ML IV 100 ML IV SCH ×3 (11:00→21:20)
[2023-07-14] MEDS: LASIX IVP SCH (11:00)
--- NOTE | 2023-07-14 13:04 | DR.H&P ---
H&P History & Physical for Day of: H&P Date: 07/14/23 Chief Complaint Chief Complaint: SOB, leg edema Allergies Allergies Allergy/AdvReac Type Severity Reaction Status Date / Time cephalexin [From Keflex] Allergy Verified 04/12/23 12:00 nitrofurantoin Allergy Verified 04/12/23 12:00 [From Macrobid] Sulfa (Sulfonamide Allergy Verified 04/12/23 12:00 Antibiotics) History of Present Illness History of Present Illness: Ms Franec is a 82 female with a PMH of CAD, CHF, HTN, GERD and COPD presented with worsening dyspnea and leg edema. She does use O2 at home at bedtime with CPAP. She reports worsening leg swelling for the past few days and was told to take extra Torsemide but it did not help. 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 She reports having echo over a month ago and was told it was good. She is currently on 2L NC. In the ER, she had elevated BNP and d- dimer. CXR was concerning for opacities vs pulmonary edema. She was given IV lasix and IV Rocephin. She was also given IV Solumedrol for COPD exacerbation. She is feeling better this morning. Labs/imaging reviewed -Hgb 8.6 Trop (-) D-dimer 1.61 BNP 1070 Cr: 2.18 - Echo 04/17/23: Grade I DD, EF 56%, moderate pulm HTN. See scanned report. Plan: repeat CXR. Add IV lasix 40 mg daily, monitor I&Os. Start IV Zosyn and nebs. Continue solumedrol. Wean O2 as tolerated to keep sats>90%. Resume home medications. Monitor AM labs/imaging. Past Medical History Past Medical History: Anemia, Arthritis, CHF, Coronary Artery Disease, GERD, Hypertension, Kidney Stones and Sleep Apnea Additional Medical History: Cataracts, Cardiomegaly, Constipation, Urinary Tract Infections, Previous Blood Transfusion Past Surgical History Surgical History: Hysterectomy and Other Additional Surgical History: Left Shoulder Surgery, Left Foot Second Toe Surgery Family History Family Medical History: Cancer and [place] Social History Does patient currently use any type of tobacco product: No Have you used tobacco products in the last 12 months: No Type of Tobacco Use: None Does any household member use tobacco: No Alcohol Use: None Drug Use: None Medications Home Medications: Home Medications Medication Instructions Recorded Confirmed Type allopurinol 100 mg tablet 100 mg PO DAILY 07/03/14 07/13/23 History (Zyloprim) torsemide 10 mg tablet (Demadex) 10 mg PO DAILY 02/06/17 07/13/23 History albuterol sulfate 0.63 mg/3 mL 0.63 mg TID 07/13/23 07/13/23 History solution for nebulization allopurinol 100 mg tablet 100 mg PO QDAY 07/13/23 07/13/23 History ciprofloxacin HCl 750 mg tablet 750 mg PO BID 07/13/23 07/13/23 History clopidogrel 75 mg tablet 75 mg PO QDAY 07/13/23 07/13/23 History ferrous fumarate 324 mg (106 mg 324 mg PO QAM 07/13/23 07/13/23 History iron) tablet (Ferrocite) hydralazine 25 mg tablet 50 mg PO BID 07/13/23 07/13/23 History Labs 07/14/23 05:15 07/14/23 05:15 Labs: Laboratory WBC 11.3 X10^3/uL (3.6-10.0) H 07/14/23 05:15 RBC 2.75 X10^6/uL (3.5-5.4) L 07/14/23 05:15 Hgb 8.6 g/dL (12.0-16.0) L 07/14/23 05:15 Hct 26.7 % (36.0-47.0) L 07/14/23 05:15 MCV 96.7 fL (80.0-100.0) 07/14/23 05:15 MCH 31.2 pg (27.0-34.0) 07/14/23 05:15 MCHC 32.2 g/dL (33.0-35.0) L 07/14/23 05:15 RDW 16.1 % (11.6-16.5) 07/14/23 05:15 Plt Count 152 X10^3/uL (150.0-450.0) 07/14/23 05:15 MPV 9.2 fL (7.4-11.0) 07/14/23 05:15 Neut % (Auto) 81.6 % (42.0-75.0) H 07/14/23 05:15 Lymph % (Auto) 9.4 % (21.0-51.0) L 07/14/23 05:15 Ashley % (Auto) 7.1 % (0.0-13.0) 07/14/23 05:15 Eos % (Auto) 1.1 % (0.9-2.9) 07/14/23 05:15 Baso % (Auto) 0.8 % (0.2-1.0) 07/14/23 05:15 Neut # (Auto) 9.3 x10^3/uL (2.2-4.8) H 07/14/23 05:15 Lymph # (Auto) 1.1 X10^3/uL (1.3-2.9) L 07/14/23 05:15 Ashley # (Auto) 0.8 x10^3/uL (0.3-0.8) 07/14/23 05:15 Eos # (Auto) 0.1 x10^3/uL (0.0-0.2) 07/14/23 05:15 Baso # (Auto) 0.1 X10^3/uL (0.0-0.1) 07/14/23 05:15 Absolute Nucleated RBC 0.0 /100WBC 07/14/23 05:15 PT 15.0 SECONDS (11.8-14.3) 07/13/23 10:33 INR Target Range - 07/13/23 10:33 INR 1.20 (0.8-1.3) 07/13/23 10:33 APTT 27.0 SECONDS (22.9-36.5) 07/13/23 10:33 PTT Comment - 07/13/23 10:33 D-Dimer 1.61 ug/ml (0.0-0.57) H 07/13/23 10:33 Sodium 139 mmol/L (136-145) 07/14/23 05:15 Corrected Sodium TNP 07/14/23 05:15 Potassium 4.1 mmol/L (3.5-5.1) 07/14/23 05:15 Chloride 105 mmol/L (98-107) 07/14/23 05:15 Carbon Dioxide 24.3 mmol/L (21-32) 07/14/23 05:15 BUN 44 mg/dL (7-18) H 07/14/23 05:15 Creatinine 2.18 mg/dL (0.55-1.02) H 07/14/23 05:15 Est GFR (MDRD) Af Amer 28 (>60) L 07/14/23 05:15 Est GFR (MDRD) Non-Af 23 (>60) L 07/14/23 05:15 Glucose 105 mg/dL (65-99) H 07/14/23 05:15 Calcium 7.9 mg/dL (8.5-10.1) L 07/14/23 05:15 Corrected Calcium 8.7 mg/dL (8.5-10.1) 07/14/23 05:15 Total Bilirubin 0.60 mg/dL (0.2-1.0) 07/14/23 05:15 AST 18 Units/L (15-37) 07/14/23 05:15 ALT 11 Units/L (12-78) L 07/14/23 05:15 Alkaline Phosphatase 145 Units/L (46-116) H 07/14/23 05:15 Creatine Kinase 46 Units/L (26-192) 07/13/23 10:33 Troponin I High Sens 14.9 ng/L (4.0-60.0) 07/13/23 10:33 B-Natriuretic Peptide 1070 pg/mL (0-79) H 07/13/23 10:33 Total Protein 5.8 g/dL (6.4-8.2) L 07/14/23 05:15 Albumin 3.0 g/dL (3.4-5.0) L 07/14/23 05:15 Globulin 2.8 g/dL (2.5-4.5) 07/14/23 05:15 Albumin/Globulin Ratio 1.1 Ratio (1.1-2.1) 07/14/23 05:15 Review of Systems Constitutional: Malaise Eyes: No Symptoms Reported ENT: No Symptoms Reported Respiratory: Shortness of Breath Cardiovascular: Edema Gastrointestinal: No Symptoms Reported Genitourinary: No Symptoms Reported Musculoskeletal: No Symptoms Reported Skin: No Symptoms Reported Neurological: No Symptoms Reported Physical Exam Vital Signs: Vital Signs Temperature 98.7 F Temperature 98.3 F Pulse Rate [Brachial] 100 Pulse Rate [Brachial] 99 Pulse Rate 98 Respiratory Rate 24 Respiratory Rate 22 Blood Pressure [Left Arm] 103/62 Blood Pressure [Left Arm] 140/70 O2 Sat by Pulse Oximetry 96 O2 Sat by Pulse Oximetry 97 O2 Sat by Pulse Oximetry 96 Oriented: Normal Eyes: Normal Throat: Normal Respiratory: RLL Rales and LLL Rales Cardiovascular: Normal and Edema (2+ pitting edema ) Auscultation: Bowel Sounds: Normal Palpation: Normal Tenderness: Normal Skin: Normal Musculoskeletal: Normal Psychiatric: Normal Mood Description: Calm Affect: Normal Speech Pattern: Clear and Appropriate Assessment/Plan (1) CHF exacerbation: Qualifiers: Heart failure type: unspecified Qualified Code(s): I50.9 - Heart failure, unspecified Status: Acute (2) COPD exacerbation: Status: Acute (3) Pneumonia: Qualifiers: Laterality: bilateral Lung location: unspecified part of lung Pneumonia type: due to unspecified organism Qualified Code(s): J18.9 - Pneumonia, unspecified organism Status: Acute (4) CAD (coronary artery disease): Qualifiers: Associated angina: without angina Coronary Disease-Associated Artery/Lesion type: [place] artery [place] vs. transplanted heart: [place] heart Qualified Code(s): I25.10 - Atherosclerotic heart disease of [place] coronary artery without angina pectoris Status: Chronic (5) Anemia: Qualifiers: Anemia type: iron deficiency Iron deficiency anemia type: unspecified iron deficiency Qualified Code(s): D50.9 - Iron deficiency anemia, unspecified Status: None (6) GERD (gastroesophageal reflux disease): Qualifiers: Esophagitis presence: esophagitis presence not specified Qualified Code(s): K21.9 - Gastro-esophageal reflux disease without esophagitis Status: Chronic (7) HTN (hypertension): Qualifiers: Hypertension type: primary hypertension Qualified Code(s): I10 - Essential (primary) hypertension Status: Chronic (8) S/P TAVR (transcatheter aortic valve replacement): Status: Acute Review H&P Reviewed: Yes Patient was examined?: Yes
[2023-07-14] MEDS: PEPCID TAB 20 MG PO SCH (23:15)
[2023-07-15] MEDS: ZOSYN VIAL 3.375 GRAMS 3.375 G in NS 100 ML IV 100 ML IV SCH ×3 (05:09→21:36)
[2023-07-15 06:58] LABS: BASOPHILS # (AUTO) 0.1 X10^3/uL (0.0-0.1); BASOPHILS % (AUTO) 0.9 % (0.2-1.0); EOSINOPHILS # (AUTO) 0.2 x10^3/uL (0.0-0.2); EOSINOPHILS % (AUTO) 2.6 % (0.9-2.9); HEMATOCRIT 24.9 % (36.0-47.0); HEMOGLOBIN 8.2 g/dL (12.0-16.0); LYMPHOCYTES % (AUTO) 12.3 % (21.0-51.0); MEAN CORPUSCULAR HEMOGLOBIN 31.5 pg (27.0-34.0); MEAN CORPUSCULAR HGB CONC 32.8 g/dL (33.0-35.0); MEAN CORPUSCULAR VOLUME 95.8 fL (80.0-100.0); MEAN PLATELET VOLUME 8.8 fL (7.4-11.0); MONOCYTES # (AUTO) 0.8 x10^3/uL (0.3-0.8); MONOCYTES % (AUTO) 9.8 % (0.0-13.0); NEUTROPHILS # (AUTO) 6.2 x10^3/uL (2.2-4.8); NEUTROPHILS % (AUTO) 74.4 % (42.0-75.0); PLATELET COUNT 138 X10^3/uL (150.0-450.0); RED BLOOD COUNT 2.59 X10^6/uL (3.5-5.4); RED CELL DISTRIBUTION WIDTH 15.8 % (11.6-16.5); WHITE BLOOD COUNT 8.3 X10^3/uL (3.6-10.0)
[2023-07-15 07:12] LABS: ALANINE AMINOTRANSFERASE 10 Units/L (12-78); ALBUMIN 2.6 g/dL (3.4-5.0); ALKALINE PHOSPHATASE 125 Units/L (46-116); ASPARTATE AMINO TRANSFERASE 15 Units/L (15-37); BLOOD UREA NITROGEN 44 mg/dL (7-18); CALCIUM 7.9 mg/dL (8.5-10.1); CARBON DIOXIDE 27.8 mmol/L (21-32); CHLORIDE 104 mmol/L (98-107); CREATININE 2.19 mg/dL (0.55-1.02); GLUCOSE 103 mg/dL (65-99); POTASSIUM 4.1 mmol/L (3.5-5.1); SODIUM 137 mmol/L (136-145); TOTAL PROTEIN 5.3 g/dL (6.4-8.2); eGFR NON BLACK RACES 23 (>60)
[2023-07-15] MEDS: DUONEB 0.5 MG/3 MG (3 mL) NEB SCH ×4 (08:56→21:26)
[2023-07-15] MEDS: PULMICORT NEB TX 0.5 MG NEB SCH ×2 (08:56→21:26)
--- NOTE | 2023-07-15 08:56 | RAD ---
EXAM:AP chestHISTORY:CHF short of breathCOMPARISON:July 13, 2023FINDINGS:Similar appearance of cardiac enlargement with diffuse bilateral interstitial prominence. There is no evidence for developing airspace consolidation, complicating pleural fluid or pneumothorax.IMPRESSION:Stable chest. The described interstitial pulmonary findings are likely related to edema, rather than pneumonia.THIS IS AN ELECTRONICALLY VERIFIED FINAL [id number]/2023 8:52 AM - Electronically signed by Kali Guevara MD
[2023-07-15] MEDS: ZYLOPRIM PO SCH (09:23)
[2023-07-15] MEDS: FERROUS GLUCONATE PO SCH (09:23)
[2023-07-15] MEDS: PEPCID TAB 20 MG PO SCH ×2 (09:23→20:39)
[2023-07-15] MEDS: LASIX IVP SCH (09:23)
[2023-07-15] MEDS: PLAVIX PO SCH (09:23)
[2023-07-15] MEDS: HEMOCYTE-PLUS PO SCH (09:23)
[2023-07-15] MEDS: APRESOLINE TAB 25 MG PO SCH ×2 (09:23→20:40)
--- NOTE | 2023-07-15 11:43 | PCM.PROG ---
Progress Note Progress Note for Day of Date of Exam: 07/15/23 Subjective Subjective: Patient seen at bedside, no events overnight. She is feeling better today. She is currently on room air. She is being treated to CHF and COPD exacerbation. Her leg edema is slightly better. Labs/imaging reviewed - Hgb 8.2 Plt 138 BUN/Cr 44/2.19 -CXR: suggestive of pulmonary edema Plan: continue IV lasix, monitor I&Os. Continue Zosyn and nebs. O2 prn. Continue current medications. Ambulate as tolerated. Monitor AM labs/imaging. Past Medical Family Social History Allergies: Allergies cephalexin [From Keflex] Allergy (Verified 04/12/23 12:00) nitrofurantoin [From Macrobid] Allergy (Verified 04/12/23 12:00) Sulfa (Sulfonamide Antibiotics) Allergy (Verified 04/12/23 12:00) Review of Systems ROS: No change since H&P Vital Signs and I&O's Vital Signs: Vital Signs Temperature 98.5 F Temperature 98.2 F Pulse Rate [Brachial] 128 Pulse Rate [Brachial] 110 Respiratory Rate 24 Respiratory Rate 20 Blood Pressure [Left Arm] 161/80 Blood Pressure [Left Arm] 123/63 O2 Sat by Pulse Oximetry 95 O2 Sat by Pulse Oximetry 95 Intake and Output: Intake & Output 07/12/23 07/13/23 07/14/23 07/15/23 23:59 23:59 23:59 23:59 Intake Total 180 / 180 1667 / 1667 500 / 500 Balance 180 / 180 1667 / 1667 500 / 500 Physical Exam Oriented: Normal Eyes: Normal Throat: Normal Respiratory: Generalized and Diminished Cardiovascular: Normal and Edema (2+ pitting edema ) Auscultation: Bowel Sounds: Normal Tenderness: Normal Skin: Normal Musculoskeletal: Normal Psychiatric: Normal Mood Description: Calm Affect: Normal Speech Pattern: Clear Laboratory and Diagnostics 07/15/23 06:23 07/15/23 06:23 Labs: 07/13/23 13:14 Blood Blood Culture - Preliminary 07/13/23 13:08 Blood Blood Culture - Preliminary Laboratory WBC 8.3 X10^3/uL (3.6-10.0) 07/15/23 06:23 RBC 2.59 X10^6/uL (3.5-5.4) L 07/15/23 06:23 Hgb 8.2 g/dL (12.0-16.0) L 07/15/23 06: Hct 24.9 % (36.0-47.0) L 07/15/23: MCV 95.8 fL (80.0-100.0) 07/15/23 06: MCH 31.5 pg (27.0-34.0) 07/15/23 06: MCHC 32.8 g/dL (33.0-35.0) L 07/15/23: RDW 15.8 % (11.6-16.5) 07/15/23: Plt Count 138 X10^3/uL (150.0-450.0) L 07/15/23: MPV 8.8 fL (7.4-11.0) 07/15/23: Neut % (Auto) 74.4 % (42.0-75.0) 07/15/23 06: Lymph % (Auto) 12.3 % (21.0-51.0) L 07/15/23: [place] % (Auto) 9.8 % (0.0-13.0) 07/15/23: Eos % (Auto) 2.6 % (0.9-2.9) 07/15/23: Baso % (Auto) 0.9 % (0.2-1.0) 07/15/23: Neut # (Auto) 6.2 x10^3/uL (2.2-4.8) H 07/15/23: Lymph # (Auto) 1.0 X10^3/uL (1.3-2.9) L 07/15/23: [place] # (Auto) 0.8 x10^3/uL (0.3-0.8) 07/15/23: Eos # (Auto) 0.2 x10^3/uL (0.0-0.2) 07/15/23 06: Baso # (Auto) 0.1 X10^3/uL (0.0-0.1) 07/15/23: Absolute Nucleated RBC 0.1 /100WBC 07/15/23 06: PT 15.0 SECONDS (11.8-14.3) 07/13/23 10:33 INR Target Range - 07/13/23 10:33 INR 1.20 (0.8-1.3) 07/13/23 10:33 APTT 27.0 SECONDS (22.9-36.5) 07/13/23 10:33 PTT Comment - 07/13/23 10:33 D-Dimer 1.61 ug/ml (0.0-0.57) H 07/13/23 10:33 Sodium 137 mmol/L (136-145) 07/15/23 06:23 Corrected Sodium TNP 07/15/23 06:23 Potassium 4.1 mmol/L (3.5-5.1) 07/15/23 06:23 Chloride 104 mmol/L (98-107) 07/15/23 06:23 Carbon Dioxide 27.8 mmol/L (21-32) 07/15/23 06:23 BUN 44 mg/dL (7-18) H 07/15/23 06:23 Creatinine 2.19 mg/dL (0.55-1.02) H 07/15/23 06:23 Est GFR (MDRD) Af Amer 27 (>60) L 07/15/23 06:23 Est GFR (MDRD) Non-Af 23 (>60) L 07/15/23 06:23 Glucose 103 mg/dL (65-99) H 07/15/23 06:23 Calcium 7.9 mg/dL (8.5-10.1) L 07/15/23 06:23 Corrected Calcium 9.0 mg/dL (8.5-10.1) 07/15/23 06:23 Total Bilirubin 0.50 mg/dL (0.2-1.0) 07/15/23 06:23 AST 15 Units/L (15-37) 07/15/23 06:23 ALT 10 Units/L (12-78) L 07/15/23 06:23 Alkaline Phosphatase 125 Units/L (46-116) H 07/15/23 06:23 Creatine Kinase 46 Units/L (26-192) 07/13/23 10:33 Troponin I High Sens 14.9 ng/L (4.0-60.0) 07/13/23 10:33 B-Natriuretic Peptide 1070 pg/mL (0-79) H 07/13/23 10:33 Total Protein 5.3 g/dL (6.4-8.2) L 07/15/23 06:23 Albumin 2.6 g/dL (3.4-5.0) L 07/15/23 06:23 Globulin 2.7 g/dL (2.5-4.5) 07/15/23 06:23 Albumin/Globulin Ratio 1.0 Ratio (1.1-2.1) L 07/15/23 06:23 Plan (1) CHF exacerbation: Status: Acute Qualifiers: Heart failure type: unspecified Qualified Code(s): I50.9 - Heart failure, unspecified (2) COPD exacerbation: Status: Acute (3) Pneumonia: Status: Acute Qualifiers: Laterality: bilateral Lung location: unspecified part of lung Pneumonia type: due to unspecified organism Qualified Code(s): J18.9 - Pneumonia, unspecified organism (4) CAD (coronary artery disease): Status: Chronic Qualifiers: Associated angina: without angina Coronary Disease-Associated Artery/Lesion type: [place] artery [place] vs. transplanted heart: [place] heart Qualified Code(s): I25.10 - Atherosclerotic heart disease of [place] coronary artery without angina pectoris (5) Anemia: Status: None Qualifiers: Anemia type: iron deficiency Iron deficiency anemia type: unspecified iron deficiency Qualified Code(s): D50.9 - Iron deficiency anemia, unspecified (6) GERD (gastroesophageal reflux disease): Status: Chronic Qualifiers: Esophagitis presence: esophagitis presence not specified Qualified Code(s): K21.9 - Gastro-esophageal reflux disease without esophagitis (7) HTN (hypertension): Status: Chronic Qualifiers: Hypertension type: primary hypertension Qualified Code(s): I10 - Essential (primary) hypertension (8) S/P TAVR (transcatheter aortic valve replacement): Status: Acute
[2023-07-16] MEDS: ZOSYN VIAL 3.375 GRAMS 3.375 G in NS 100 ML IV 100 ML IV SCH ×2 (05:53→21:27)
[2023-07-16 06:24] LABS: BASOPHILS # (AUTO) 0.1 X10^3/uL (0.0-0.1); BASOPHILS % (AUTO) 0.9 % (0.2-1.0); EOSINOPHILS # (AUTO) 0.3 x10^3/uL (0.0-0.2); EOSINOPHILS % (AUTO) 2.7 % (0.9-2.9); HEMATOCRIT 29.3 % (36.0-47.0); HEMOGLOBIN 9.4 g/dL (12.0-16.0); LYMPHOCYTES # (AUTO) 1.2 X10^3/uL (1.3-2.9); LYMPHOCYTES % (AUTO) 12.6 % (21.0-51.0); MEAN CORPUSCULAR HEMOGLOBIN 30.9 pg (27.0-34.0); MEAN CORPUSCULAR VOLUME 96.5 fL (80.0-100.0); MONOCYTES # (AUTO) 0.8 x10^3/uL (0.3-0.8); MONOCYTES % (AUTO) 8.9 % (0.0-13.0); NEUTROPHILS # (AUTO) 7.1 x10^3/uL (2.2-4.8); NEUTROPHILS % (AUTO) 74.9 % (42.0-75.0); PLATELET COUNT 163 X10^3/uL (150.0-450.0); RED BLOOD COUNT 3.04 X10^6/uL (3.5-5.4); RED CELL DISTRIBUTION WIDTH 15.9 % (11.6-16.5); WHITE BLOOD COUNT 9.5 X10^3/uL (3.6-10.0)
[2023-07-16 06:38] LABS: ALBUMIN 3.1 g/dL (3.4-5.0); CALCIUM 8.2 mg/dL (8.5-10.1); CARBON DIOXIDE 23.5 mmol/L (21-32); COR CA(FOR HYPOALB) 8.9 mg/dL (8.5-10.1); CREATININE 2.41 mg/dL (0.55-1.02); POTASSIUM 3.8 mmol/L (3.5-5.1); TOTAL PROTEIN 6.1 g/dL (6.4-8.2)
[2023-07-16] MEDS ORDERED: CONSULT PHARMACY - POTASSIUM & MAGNESIUM XX SCH (07:00)
--- NOTE | 2023-07-16 07:52 | RAD ---
EXAM:CHEST, 1 VIEWHISTORY:COB, PNEUMONIA, ELEVATED D-DIMER; 07/14/2023.: HTN, CHF PSH: GB, ORTHO, PT HYST, TUBALCOMPARISON:07/14/2023.TECHNIQUE:AP view of the chestFINDINGS:Cardiac silhouette is stably enlarged. Suspect a moderate hiatal hernia. Aortic valve prosthesis noted. Lungs are mildly hyperexpanded. There is improvement in bilateral mid to lower lung airspace opacity. Blunted left costophrenic sulcus. Thickened right minor fissure. No pneumothorax.IMPRESSION:Cardiomegaly. Improved basilar predominant airspace opacities may represent edema or pneumonia in the acute setting. Suspect small pleural effusions.Suspect a moderate hiatal hernia.THIS IS AN ELECTRONICALLY VERIFIED FINAL [id number]/2023 7:48 AM - Electronically signed by Roberto Mcfarlane MD
[2023-07-16] MEDS ORDERED: K-DUR TAB 20 MEQ PO SCH (09:00)
[2023-07-16] MEDS: FERROUS GLUCONATE PO SCH (09:01)
[2023-07-16] MEDS: ZYLOPRIM PO SCH (09:01)
[2023-07-16] MEDS: PEPCID TAB 20 MG PO SCH (09:01)
[2023-07-16] MEDS: PLAVIX PO SCH (09:01)
[2023-07-16] MEDS: APRESOLINE TAB 25 MG PO SCH ×2 (09:02→21:27)
[2023-07-16] MEDS: LASIX IVP SCH (09:02)
[2023-07-16] MEDS: HEMOCYTE-PLUS PO SCH (09:02)
[2023-07-16] MEDS: DUONEB 0.5 MG/3 MG (3 mL) NEB SCH ×4 (09:44→21:00)
[2023-07-16] MEDS: PULMICORT NEB TX 0.5 MG NEB SCH ×2 (09:44→21:00)
[2023-07-17 06:23] LABS: BASOPHILS # (AUTO) 0.1 X10^3/uL (0.0-0.1); BASOPHILS % (AUTO) 0.8 % (0.2-1.0); EOSINOPHILS # (AUTO) 0.3 x10^3/uL (0.0-0.2); EOSINOPHILS % (AUTO) 2.4 % (0.9-2.9); HEMATOCRIT 26.7 % (36.0-47.0); HEMOGLOBIN 8.8 g/dL (12.0-16.0); LYMPHOCYTES % (AUTO) 9.4 % (21.0-51.0); MEAN CORPUSCULAR HEMOGLOBIN 31.7 pg (27.0-34.0); MEAN CORPUSCULAR HGB CONC 33.1 g/dL (33.0-35.0); MEAN CORPUSCULAR VOLUME 95.6 fL (80.0-100.0); MEAN PLATELET VOLUME 9.1 fL (7.4-11.0); MONOCYTES # (AUTO) 0.9 x10^3/uL (0.3-0.8); MONOCYTES % (AUTO) 8.4 % (0.0-13.0); NEUTROPHILS # (AUTO) 8.2 x10^3/uL (2.2-4.8); PLATELET COUNT 156 X10^3/uL (150.0-450.0); RED BLOOD COUNT 2.79 X10^6/uL (3.5-5.4); RED CELL DISTRIBUTION WIDTH 15.6 % (11.6-16.5); WHITE BLOOD COUNT 10.4 X10^3/uL (3.6-10.0)
[2023-07-17 06:45] LABS: CALCIUM 8.4 mg/dL (8.5-10.1); CARBON DIOXIDE 23.4 mmol/L (21-32); COR CA(FOR HYPOALB) 9.2 mg/dL (8.5-10.1); CREATININE 2.39 mg/dL (0.55-1.02); MAGNESIUM 2.2 mg/dL (2.0-2.9); POTASSIUM 3.7 mmol/L (3.5-5.1)
--- NOTE | 2023-07-17 07:58 | RAD ---
EXAM:Portable chestHISTORY:Shortness of breathCOMPARISON:07/16/2023FINDINGS:Hear t remains enlarged. Interstitium is more prominent than on the prior examination suggestive of interval development of some interstitial pulmonary edema. No alveolar edema, alveolar infiltrates or areas of consolidation identified. No pleural effusions identified. Bony thorax is unremarkable with exception of the left shoulder arthroplasty.IMPRESSION:Cardiomegaly with interval development of interstitial pulmonary edema since the prior examinationTHIS IS AN ELECTRONICALLY VERIFIED FINAL [id number]/2023 7:39 AM - Electronically signed by Artur Savage MD
[2023-07-17] MEDS ORDERED: MICRO K EXTEN CAP 10 MEQ PO SCH (08:00)
[2023-07-17] MEDS ORDERED: CONSULT PHARMACY - POTASSIUM & MAGNESIUM XX SCH (08:00)
[2023-07-17] MEDS: PULMICORT NEB TX 0.5 MG NEB SCH ×2 (08:26→21:00)
[2023-07-17] MEDS: DUONEB 0.5 MG/3 MG (3 mL) NEB SCH ×4 (08:26→21:00)
[2023-07-17] MEDS: ZOSYN VIAL 3.375 GRAMS 3.375 G in NS 100 ML IV 100 ML IV SCH ×2 (09:42→20:58)
[2023-07-17] MEDS: LASIX IVP SCH ×2 (09:43→17:27)
[2023-07-17] MEDS: HEMOCYTE-PLUS PO SCH (09:47)
[2023-07-17] MEDS: FERROUS GLUCONATE PO SCH (09:48)
[2023-07-17] MEDS: PLAVIX PO SCH (09:50)
[2023-07-17] MEDS: PEPCID TAB 20 MG PO SCH (09:50)
[2023-07-17] MEDS: APRESOLINE TAB 25 MG PO SCH ×2 (09:51→20:58)
[2023-07-17] MEDS: ZYLOPRIM PO SCH (09:52)
[2023-07-17] MEDS: TOPROL XL PO SCH (11:43)
--- NOTE | 2023-07-17 12:18 | PCM.PROG ---
Progress Note Progress Note for Day of Date of Exam: 07/16/23 Subjective Subjective: IS A 82 YEAR OLD PATIENT OF OURS. SHE HAS A PMH OF CAD, CHF, HTN, GERD, COPD. 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 SHE IS CURRENTLY INPATIENT STATUS FOR TREATMENT OF CHF EXACERBATION, COPD EXACERBATION, BILATERAL PNEUMONIA, ANEMIA. TODAY, SHE IS ALERT AND ORIENTED, SITTING UP ON THE SIDE OF THE BED ON MORNING ROUNDS. SHE COMPLAINS OF SHORNTESS OF BREATH AND LOWER EXTREMITY SWELLING THIS MORNING. SHE REPORTS ONLY SLIGHT IMPROVEMENT OF SHORTNESS OF BREATH AND SWELLING SINCE ADMISSION. SHE IS CURRENTLY UTILIZING OXYGEN VIA NASAL CANNULA AT 2 LPM AND USES THE CPAP AT NIGHT. ON EXAMINATION THIS MORNING, SHE IS SLIGHTLY TACHYCARDIC WITH HR 100-110 BPM. BILATERAL LUNGS ARE NOTED WITH DIMINISHED LUNG SOUNDS THROUGHOUT. ABDOMEN IS ROUND, SOFT, AND NON-TENDER WITH NORMAL BOWEL SOUNDS NOTED IN ALL QUADRANTS. GOOD RANGE OF MOTION NOTED TO UPPER AND LOWER EXTREMITIES. THERE IS 2+ PITTING EDEMA OF LOWER EXTREMITIES NOTED. HER VITALS THIS MORNING ARE: 98.6-104-18-92%-153/65. LABS WE RE OBTAINED. WBC 9.5, RBC 3.04, HGB 9.4, HCT 29.3, PLT COUNT 163, SODIUM 135, POTASSIUM 3.8, CHLORIDE 100, CARBON DIOXIDE 23.5, BUN 45, CREATININE 2.41, GLUCOSE 113, CALCIUM 8.2, TOTAL BILI 0.60, AST 19, ALT 14, ALK PHOS 144, BNP 394, TOTAL PROTEIN 6.1, ALBUMIN 3.1. RESPIRATORY VIRAL PANEL IS PENDING. BLOOD CULTURES ARE PENDING. A CHEST XRAY WAS OBTAINED THIS MORNING AND REVEALED: Cardiomegaly. Improved basilar predominant airspace opacities may represent edema or pneumonia in the acute setting. Suspect small pleural effusions. Suspect a moderate hiatal hernia. SHE IS CURRENTLY RECEIVING ZOSYN 3.375G IV BID, LASIX 40MG DAILY, DUONEBS QID, PULMICORT NEBS BID. HER HOME MEDICATIONS OF ALLOPURINOL, PLAVIX, PEPCID, FERROUS GLUCONATE, APRESOLINE, AND HEMOCYTE PLUS WERE RESUMED. WE WILL CONTINUE WITH CURRENT PLAN OF CARE TODAY. OTHERWISE, WE WILL FOLLOW UP WITH AM LABS AND CONTINUE TO MONITOR. TIME SPENT ON CLINICAL ASSESSMENT, REVIEWING LABS AND IMAGING, DECISION MAKING, AND DOCUMENTATION G REATER THAN 45 MINUTES. Past Medical Family Social History Allergies: Allergies cephalexin [From Keflex] Allergy (Verified 04/12/23 12:00) nitrofurantoin [From Macrobid] Allergy (Verified 04/12/23 12:00) Sulfa (Sulfonamide Antibiotics) Allergy (Verified 04/12/23 12:00) Review of Systems ROS: No change since H&P Vital Signs and I&O's Vital Signs: Vital Signs Temperature 97.3 F Pulse Rate [Brachial] 113 Pulse Rate 109 Respiratory Rate 24 Blood Pressure [Right Arm] 152/76 O2 Sat by Pulse Oximetry 94 O2 Sat by Pulse Oximetry 96 Intake and Output: Intake & Output 07/15/23 07/16/23 07/17/23 07/18/23 11:59 11:59 11:59 11:59 Intake Total 1375 / 1375 1343 / 1343 1000 / 1000 Balance 1375 / 1375 1343 / 1343 1000 / 1000 Physical Exam Oriented: Normal Eyes: Normal Throat: Normal Respiratory: Generalized and Diminished Cardiovascular: Normal and Edema (2+ pitting edema ) Auscultation: Bowel Sounds: Normal Tenderness: Normal Skin: Normal Musculoskeletal: Normal Psychiatric: Normal Mood Description: Calm Affect: Normal Speech Pattern: Clear Laboratory and Diagnostics 07/17/23 05:44 07/17/23 05:44 Labs: 07/13/23 13:14 Blood Blood Culture - Preliminary 07/13/23 13:08 Blood Blood Culture - Preliminary Laboratory WBC 10.4 X10^3/uL (3.6-10.0) H 07/17/23 05:44 RBC 2.79 X10^6/uL (3.5-5.4) L 07/17/23 05:44 Hgb 8.8 g/dL (12.0-16.0) L 07/17/23 05:44 Hct 26.7 % (36.0-47.0) L 07/17/23 05:44 MCV 95.6 fL (80.0-100.0) 07/17/23 05:44 MCH 31.7 pg (27.0-34.0) 07/17/23 05:44 MCHC 33.1 g/dL (33.0-35.0) 07/17/23 05:44 RDW 15.6 % (11.6-16.5) 07/17/23 05:44 Plt Count 156 X10^3/uL (150.0-450.0) 07/17/23 05:44 MPV 9.1 fL (7.4-11.0) 07/17/23 05:44 Neut % (Auto) 79.0 % (42.0-75.0) H 07/17/23 05:44 Lymph % (Auto) 9.4 % (21.0-51.0) L 07/17/23 05:44 [place] % (Auto) 8.4 % (0.0-13.0) 07/17/23 05:44 Eos % (Auto) 2.4 % (0.9-2.9) 07/17/23 05:44 Baso % (Auto) 0.8 % (0.2-1.0) 07/17/23 05:44 Neut # (Auto) 8.2 x10^3/uL (2.2-4.8) H 07/17/23 05:44 Lymph # (Auto) 1.0 X10^3/uL (1.3-2.9) L 07/17/23 05:44 [place] # (Auto) 0.9 x10^3/uL (0.3-0.8) H 07/17/23 05:44 Eos # (Auto) 0.3 x10^3/uL (0.0-0.2) H 07/17/23 05:44 Baso # (Auto) 0.1 X10^3/uL (0.0-0.1) 07/17/23 05:44 Absolute Nucleated RBC 0.0 /100WBC 07/17/23 05:44 PT 15.0 SECONDS (11.8-14.3) 07/13/23 10:33 INR Target Range - 07/13/23 10:33 INR 1.20 (0.8-1.3) 07/13/23 10:33 APTT 27.0 SECONDS (22.9-36.5) 07/13/23 10:33 PTT Comment - 07/13/23 10:33 D-Dimer 1.61 ug/ml (0.0-0.57) H 07/13/23 10:33 Sodium 133 mmol/L (136-145) L 07/17/23 05:44 Corrected Sodium 133 mmol/L (136-145) L 07/17/23 05:44 Potassium 3.7 mmol/L (3.5-5.1) 07/17/23 05:44 Chloride 98 mmol/L (98-107) 07/17/23 05:44 Carbon Dioxide 23.4 mmol/L (21-32) 07/17/23 05:44 BUN 43 mg/dL (7-18) H 07/17/23 05:44 Creatinine 2.39 mg/dL (0.55-1.02) H 07/17/23 05:44 Est GFR (MDRD) Af Amer 25 (>60) L 07/17/23 05:44 Est GFR (MDRD) Non-Af 21 (>60) L 07/17/23 05:44 Glucose 118 mg/dL (65-99) H 07/17/23 05:44 Calcium 8.4 mg/dL (8.5-10.1) L 07/17/23 05:44 Corrected Calcium 9.2 mg/dL (8.5-10.1) 07/17/23 05:44 Magnesium 2.2 mg/dL (2.0-2.9) 07/17/23 05:44 Total Bilirubin 0.50 mg/dL (0.2-1.0) 07/17/23 05:44 AST 22 Units/L (15-37) 07/17/23 05:44 ALT 13 Units/L (12-78) 07/17/23 05:44 Alkaline Phosphatase 135 Units/L (46-116) H 07/17/23 05:44 Creatine Kinase 46 Units/L (26-192) 07/13/23 10:33 Troponin I High Sens 14.9 ng/L (4.0-60.0) 07/13/23 10:33 B-Natriuretic Peptide 581 pg/mL (0-79) H 07/17/23 05:44 Total Protein 6.0 g/dL (6.4-8.2) L 07/17/23 05:44 Albumin 3.0 g/dL (3.4-5.0) L 07/17/23 05:44 Globulin 3.0 g/dL (2.5-4.5) 07/17/23 05:44 Albumin/Globulin Ratio 1.0 Ratio (1.1-2.1) L 07/17/23 05:44 Plan (1) CHF exacerbation: Status: Acute Qualifiers: Heart failure type: unspecified Qualified Code(s): I50.9 - Heart failure, unspecified Narrative Support Text: ZOSYN 3.375G IV BID, LASIX 40MG DAILY, DUONEBS QID, PULMICORT NEBS BID. HER HOME MEDICATIONS OF ALLOPURINOL, PLAVIX, PEPCID, FERROUS GLUCONATE, APRESOLINE, AND HEMOCYTE PLUS WERE RESUMED. (2) COPD exacerbation: Status: Acute (3) Pneumonia: Status: Acute Qualifiers: Laterality: bilateral Lung location: unspecified part of lung Pneumonia type: due to unspecified organism Qualified Code(s): J18.9 - Pneumonia, unspecified organism (4) CAD (coronary artery disease): Status: Chronic Qualifiers: Associated angina: without angina Coronary Disease-Associated Artery/Lesion type: [place] artery [place] vs. transplanted heart: [place] heart Qualified Code(s): I25.10 - Atherosclerotic heart disease of [place] coronary artery without angina pectoris (5) Anemia: Status: None Qualifiers: Anemia type: iron deficiency Iron deficiency anemia type: unspecified iron deficiency Qualified Code(s): D50.9 - Iron deficiency anemia, unspecified (6) GERD (gastroesophageal reflux disease): Status: Chronic Qualifiers: Esophagitis presence: esophagitis presence not specified Qualified Code(s): K21.9 - Gastro-esophageal reflux disease without esophagitis (7) HTN (hypertension): Status: Chronic Qualifiers: Hypertension type: primary hypertension Qualified Code(s): I10 - Essential (primary) hypertension (8) S/P TAVR (transcatheter aortic valve replacement): Status: Acute
--- NOTE | 2023-07-17 12:18 | PCM.PROG ---
Progress Note Progress Note for Day of Date of Exam: 07/17/23 Subjective Subjective: IS A 82 YEAR OLD PATIENT OF OURS. SHE HAS A PMH OF CAD, CHF, HTN, GERD, COPD. 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 SHE IS CURRENTLY INPATIENT STATUS FOR TREATMENT OF CHF EXACERBATION, COPD EXACERBATION, BILATERAL PNEUMONIA, ANEMIA. TODAY, SHE IS ALERT AND ORIENTED, SITTING IN THE CHAIR ON MORNING ROUNDS. SHE CONTINUES TO COMPLAINS OF SHORNTESS OF BREATH AND LOWER EXTREMITY SWELLING THIS MORNING. SHE DENIES IMPROVEMENT IN SYMPTOMS SINCE WE SAW HER YESTERDAY. SHE ACTUALLY REPORTS FEELING MORE SHORT OF BREATH SINCE YESTERDAY. SHE IS CURRENTLY UTILIZING OXYGEN VIA NASAL CANNULA AT 2 LPM AND USES THE CPAP AT NIGHT. ON EXAMINATION THIS MORNING, SHE IS SLIGHTLY TACHYCARDIC WITH HR 110-120 BPM. BILATERAL LUNGS ARE NOTED WITH DIMINISHED LUNG SOUNDS THROUGHOUT. ABDOMEN IS ROUND, SOFT, AND NON-TENDER WITH NORMAL BOWEL SOUNDS NOTED IN ALL QUADRANTS. GOOD RANGE OF MOTION NOTED TO UPPER AND LOWER EXTREMITIES. THERE IS 2+ PITTING EDEMA OF LOWER EXTREMITIES NOTED. HER VITALS THIS MORNING ARE: 97.3-113-24-96%-152/76. LABS WERE OBTAINED. WBC 10.4, RBC 2.79, HGB 8.8, HCT 26.7, PLT COUNT 156, SODIUM 133, POTASSIUM 3.7, CHLORIDE 98, CARBON DIOXIDE 23.4, BUN 43, PLT COUNT 2.39, GLUCOSE 118, CALCIUM 8.4, MAGNESIUM 2.2, TOTAL BILI 0.50, AST 22, ALT 13, ALK PHOS 135, BNP 581, TOTAL PROTEIN 6.0, ALBUMIN 3.0. RESPIRATORY VIRAL PANEL IS PENDING. BLOOD CULTURES ARE PENDING. A CHEST XRAY WAS OBTAINED THIS MORNING AND REVEALED: Cardiomegaly with interval development of interstitial pulmonary edema since the prior examination. SHE IS CURRENTLY RECEIVING ZOSYN 3.375G IV BID, LASIX 40MG DAILY, DUONEBS QID, PULMICORT NEBS BID. HER HOME MEDICATIONS OF ALLOPURINOL, PLAVIX, PEPCID, FERROUS GLUCONATE, APRESOLINE, AND HEMOCYTE PLUS WERE RESUMED. TODAY, WE WILL INCREASE HER LASIX TO 40MG BID, ADD TOPROL XL 25MG DAILY, AND RESTRICT HER FLUID INTAKE TO LESS THAN 1000 ML/DAY. OTHERWISE, WE WILL CONTINUE WITH CURRENT PLAN OF CARE. WE WILL FOLLOW UP WITH AM LABS AND CONTINUE TO MONITOR. TIME SPENT ON CLINICAL ASSESSMENT, REVIEWING LABS AND IMAGING, DECISION MAKING, AND DOCUMENTATION GREATER THAN 45 MINUTES. Past Medical Family Social History Allergies: Allergies cephalexin [From Keflex] Allergy (Verified 04/12/23 12:00) nitrofurantoin [From Macrobid] Allergy (Verified 04/12/23 12:00) Sulfa (Sulfonamide Antibiotics) Allergy (Verified 04/12/23 12:00) Review of Systems ROS: No change since H&P Vital Signs and I&O's Vital Signs: Vital Signs Temperature 97.3 F Pulse Rate [Brachial] 113 Pulse Rate 109 Respiratory Rate 24 Blood Pressure [Right Arm] 152/76 O2 Sat by Pulse Oximetry 94 O2 Sat by Pulse Oximetry 96 Intake and Output: Intake & Output 07/15/23 07/16/23 07/17/23 07/18/23 11:59 11:59 11:59 11:59 Intake Total 1375 / 1375 1343 / 1343 1000 / 1000 Balance 1375 / 1375 1343 / 1343 1000 / 1000 Physical Exam Oriented: Normal Eyes: Normal Throat: Normal Respiratory: Generalized and Diminished Cardiovascular: Normal and Edema (2+ pitting edema ) Auscultation: Bowel Sounds: Normal Tenderness: Normal Skin: Normal Musculoskeletal: Normal Psychiatric: Normal Mood Description: Calm Affect: Normal Speech Pattern: Clear Laboratory and Diagnostics 07/17/23 05:44 07/17/23 05:44 Labs: 07/13/23 13:14 Blood Blood Culture - Preliminary 07/13/23 13:08 Blood Blood Culture - Preliminary Laboratory WBC 10.4 X10^3/uL (3.6-10.0) H 07/17/23 05:44 RBC 2.79 X10^6/uL (3.5-5.4) L 07/17/23 05:44 Hgb 8.8 g/dL (12.0-16.0) L 07/17/23 05:44 Hct 26.7 % (36.0-47.0) L 07/17/23 05:44 MCV 95.6 fL (80.0-100.0) 07/17/23 05:44 MCH 31.7 pg (27.0-34.0) 07/17/23 05:44 MCHC 33.1 g/dL (33.0-35.0) 07/17/23 05:44 RDW 15.6 % (11.6-16.5) 07/17/23 05:44 Plt Count 156 X10^3/uL (150.0-450.0) 07/17/23 05:44 MPV 9.1 fL (7.4-11.0) 07/17/23 05:44 Neut % (Auto) 79.0 % (42.0-75.0) H 07/17/23 05:44 Lymph % (Auto) 9.4 % (21.0-51.0) L 07/17/23 05:44 [place] % (Auto) 8.4 % (0.0-13.0) 07/17/23 05:44 Eos % (Auto) 2.4 % (0.9-2.9) 07/17/23 05:44 Baso % (Auto) 0.8 % (0.2-1.0) 07/17/23 05:44 Neut # (Auto) 8.2 x10^3/uL (2.2-4.8) H 07/17/23 05:44 Lymph # (Auto) 1.0 X10^3/uL (1.3-2.9) L 07/17/23 05:44 [place] # (Auto) 0.9 x10^3/uL (0.3-0.8) H 07/17/23 05:44 Eos # (Auto) 0.3 x10^3/uL (0.0-0.2) H 07/17/23 05:44 Baso # (Auto) 0.1 X10^3/uL (0.0-0.1) 07/17/23 05:44 Absolute Nucleated RBC 0.0 /100WBC 07/17/23 05:44 PT 15.0 SECONDS (11.8-14.3) 07/13/23 10:33 INR Target Range - 07/13/23 10:33 INR 1.20 (0.8-1.3) 07/13/23 10:33 APTT 27.0 SECONDS (22.9-36.5) 07/13/23 10:33 PTT Comment - 07/13/23 10:33 D-Dimer 1.61 ug/ml (0.0-0.57) H 07/13/23 10:33 Sodium 133 mmol/L (136-145) L 07/17/23 05:44 Corrected Sodium 133 mmol/L (136-145) L 07/17/23 05:44 Potassium 3.7 mmol/L (3.5-5.1) 07/17/23 05:44 Chloride 98 mmol/L (98-107) 07/17/23 05:44 Carbon Dioxide 23.4 mmol/L (21-32) 07/17/23 05:44 BUN 43 mg/dL (7-18) H 07/17/23 05:44 Creatinine 2.39 mg/dL (0.55-1.02) H 07/17/23 05:44 Est GFR (MDRD) Af Amer 25 (>60) L 07/17/23 05:44 Est GFR (MDRD) Non-Af 21 (>60) L 07/17/23 05:44 Glucose 118 mg/dL (65-99) H 07/17/23 05:44 Calcium 8.4 mg/dL (8.5-10.1) L 07/17/23 05:44 Corrected Calcium 9.2 mg/dL (8.5-10.1) 07/17/23 05:44 Magnesium 2.2 mg/dL (2.0-2.9) 07/17/23 05:44 Total Bilirubin 0.50 mg/dL (0.2-1.0) 07/17/23 05:44 AST 22 Units/L (15-37) 07/17/23 05:44 ALT 13 Units/L (12-78) 07/17/23 05:44 Alkaline Phosphatase 135 Units/L (46-116) H 07/17/23 05:44 Creatine Kinase 46 Units/L (26-192) 07/13/23 10:33 Troponin I High Sens 14.9 ng/L (4.0-60.0) 07/13/23 10:33 B-Natriuretic Peptide 581 pg/mL (0-79) H 07/17/23 05:44 Total Protein 6.0 g/dL (6.4-8.2) L 07/17/23 05:44 Albumin 3.0 g/dL (3.4-5.0) L 07/17/23 05:44 Globulin 3.0 g/dL (2.5-4.5) 07/17/23 05:44 Albumin/Globulin Ratio 1.0 Ratio (1.1-2.1) L 07/17/23 05:44 Plan (1) CHF exacerbation: Status: Acute Qualifiers: Heart failure type: unspecified Qualified Code(s): I50.9 - Heart failure, unspecified Plan: FLUID RESTRICTION, ZOSYN 3.375G IV BID, LASIX 40MG BID,TOPROL XL 25MG DAILY DUONEBS QID, PULMICORT NEBS BID. HER HOME MEDICATIONS OF ALLOPURINOL, PLAVIX, PEPCID, FERROUS GLUCONATE, APRESOLINE, AND HEMOCYTE PLUS WERE RESUMED (2) COPD exacerbation: Status: Acute (3) Pneumonia: Status: Acute Qualifiers: Laterality: bilateral Lung location: unspecified part of lung Pneumonia type: due to unspecified organism Qualified Code(s): J18.9 - Pneumonia, unspecified organism (4) CAD (coronary artery disease): Status: Chronic Qualifiers: Associated angina: without angina Coronary Disease-Associated Artery/Lesion type: [place] artery [place] vs. 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 (5) Anemia: Status: None Qualifiers: Anemia type: iron deficiency Iron deficiency anemia type: unspecified iron deficiency Qualified Code(s): D50.9 - Iron deficiency anemia, unspecified (6) GERD (gastroesophageal reflux disease): Status: Chronic Qualifiers: Esophagitis presence: esophagitis presence not specified Qualified Code(s): K21.9 - Gastro-esophageal reflux disease without esophagitis (7) HTN (hypertension): Status: Chronic Qualifiers: Hypertension type: primary hypertension Qualified Code(s): I10 - Ess ential (primary) hypertension (8) S/P TAVR (transcatheter aortic valve replacement): Status: Acute
--- NOTE | 2023-07-18 06:12 | RAD ---
EXAM:CHEST, 1 VIEWHISTORY:CHF, PNEUMONIA, SOB ;COMPARISON:07/17/2023FINDINGS:The cardiomediastinal silhouette is stable. Given positioning.Similar interstitial opacities. No pneumothorax or effusion.No acute osseous abnormality.IMPRESSION:Similar congestion and possible mild edema.THIS IS AN ELECTRONICALLY VERIFIED FINAL SEEZEM0207/18/2023 6:09 AM - Electronically signed by Artur Savage MD
[2023-07-18 06:45] LABS: BASOPHILS # (AUTO) 0.1 X10^3/uL (0.0-0.1); BASOPHILS % (AUTO) 1.1 % (0.2-1.0); EOSINOPHILS # (AUTO) 0.3 x10^3/uL (0.0-0.2); EOSINOPHILS % (AUTO) 3.6 % (0.9-2.9); HEMATOCRIT 26.1 % (36.0-47.0); HEMOGLOBIN 8.5 g/dL (12.0-16.0); LYMPHOCYTES # (AUTO) 0.9 X10^3/uL (1.3-2.9); LYMPHOCYTES % (AUTO) 11.4 % (21.0-51.0); MEAN CORPUSCULAR HEMOGLOBIN 31.4 pg (27.0-34.0); MEAN CORPUSCULAR HGB CONC 32.8 g/dL (33.0-35.0); MEAN CORPUSCULAR VOLUME 95.9 fL (80.0-100.0); MEAN PLATELET VOLUME 8.6 fL (7.4-11.0); MONOCYTES # (AUTO) 0.7 x10^3/uL (0.3-0.8); MONOCYTES % (AUTO) 8.8 % (0.0-13.0); NEUTROPHILS # (AUTO) 5.8 x10^3/uL (2.2-4.8); NEUTROPHILS % (AUTO) 75.1 % (42.0-75.0); PLATELET COUNT 155 X10^3/uL (150.0-450.0); RED BLOOD COUNT 2.72 X10^6/uL (3.5-5.4); RED CELL DISTRIBUTION WIDTH 15.9 % (11.6-16.5); WHITE BLOOD COUNT 7.7 X10^3/uL (3.6-10.0)
[2023-07-18 07:00] LABS: ALANINE AMINOTRANSFERASE 16 Units/L (12-78); ALBUMIN 2.8 g/dL (3.4-5.0); ALKALINE PHOSPHATASE 130 Units/L (46-116); ASPARTATE AMINO TRANSFERASE 22 Units/L (15-37); BLOOD UREA NITROGEN 44 mg/dL (7-18); CALCIUM 8.1 mg/dL (8.5-10.1); CARBON DIOXIDE 26.9 mmol/L (21-32); CHLORIDE 100 mmol/L (98-107); COR CA(FOR HYPOALB) 9.1 mg/dL (8.5-10.1); CREATININE 2.44 mg/dL (0.55-1.02); GLUCOSE 107 mg/dL (65-99); POTASSIUM 3.7 mmol/L (3.5-5.1); SODIUM 135 mmol/L (136-145); TOTAL PROTEIN 5.7 g/dL (6.4-8.2); eGFR NON BLACK RACES 20 (>60)
[2023-07-18] MEDS: ZOSYN VIAL 3.375 GRAMS 3.375 G in NS 100 ML IV 100 ML IV SCH ×2 (08:48→21:01)
[2023-07-18] MEDS: LASIX IVP SCH ×2 (08:51→17:22)
[2023-07-18] MEDS: TOPROL XL PO SCH (08:52)
[2023-07-18] MEDS: ZYLOPRIM PO SCH (08:52)
[2023-07-18] MEDS: PEPCID TAB 20 MG PO SCH (08:53)
[2023-07-18] MEDS: HEMOCYTE-PLUS PO SCH (08:54)
[2023-07-18] MEDS: APRESOLINE TAB 25 MG PO SCH ×2 (08:54→21:01)
[2023-07-18] MEDS: PLAVIX PO SCH (08:55)
[2023-07-18] MEDS: FERROUS GLUCONATE PO SCH (08:57)
[2023-07-18] MEDS: PULMICORT NEB TX 0.5 MG NEB SCH ×2 (09:48→20:08)
[2023-07-18] MEDS: DUONEB 0.5 MG/3 MG (3 mL) NEB SCH ×4 (09:48→20:08)
--- NOTE | 2023-07-18 10:33 | EKG ---
Test Reason : tachycardia, sob Blood Pressure : */* mmHG Vent. Rate : 115 BPM Atrial Rate : * BPM P-R Int : * ms QRS Dur : 164 ms QT Int : 364 ms P-R-T Axes : * -5 174 degrees QTc Int : 503 ms Atrial fibrillation with rapid ventricular response Left bundle branch block Abnormal ECG When compared with ECG of 13-JUL-2023 11:03, Atrial fibrillation has replaced Sinus rhythm Vent. rate has increased BY 39 BPM Confirmed by Case Huddleston MD ([id number]) on 07/18/2023 5:40:29 PM Referred By: Confirmed By: Case Huddleston MD
[2023-07-18] MEDS ORDERED: TOPROL XL PO ONE (17:39)
[2023-07-18] MEDS: CORDARONE TAB 200 MG PO SCH (18:11)
[2023-07-18] MEDS ORDERED: COUMADIN PO ONE (21:00)
--- NOTE | 2023-07-18 21:48 | PCM.PROG ---
Progress Note - Progress Note for Day of Date of Exam: 07/18/23 - Subjective Subjective: IS A 82 YEAR OLD PATIENT OF OURS. SHE HAS A PMH OF CAD, CHF, HTN, GERD, COPD. 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 SHE IS CURRENTLY INPATIENT STATUS FOR TREATMENT OF CHF EXACERBATION, COPD EXACERBATION, BILATERAL PNEUMONIA, ANEMIA. TODAY, SHE IS ALERT AND ORIENTED, SITTING IN THE CHAIR ON MORNING ROUNDS. SHE CONTINUES TO COMPLAINS OF SHORNTESS OF BREATH AND LOWER EXTREMITY SWELLING THIS MORNING. SHE DENIES IMPROVEMENT IN SYMPTOMS SINCE WE SAW HER YESTERDAY. SHE IS CURRENTLY UTILIZING OXYGEN VIA NASAL CANNULA AT 2 LPM AND USES THE CPAP AT NIGHT. ON EXAMINATION THIS MORNING, SHE IS SLIGHTLY TACHYCARDIC WITH HR 100-110 BPM. ATRIAL FIBRILLATION NOTED. BILATERAL LUNGS ARE NOTED WITH DIMINISHED LUNG SOUNDS THROUGHOUT. ABDOMEN IS ROUND, SOFT, AND NON-TENDER WITH NORMAL BOWEL SOUNDS NOTED IN ALL QUADRANTS. GOOD RANGE OF MOTION NOTED TO UPPER AND LOWER EXTREMITIES. THERE IS 2+ PITTING EDEMA OF LOWER EXTREMITIES NOTED. HER VITALS THIS MORNING ARE: 97.6-109-24-95%-132/75. LABS WERE OBTAINED. WBC 7.7, RBC 2.72, HGB 8.5, HCT 26.1, PLT COUNT 155, SODIUM 135, POTASSIUM 3.7, CHLORIDE 100, BUN 44, CREATININE 2.44, GLUCOSE 107, CALCIUM 8.1, TOTAL BILI 0.40, AST 22, ALT 16, ALK PHOS 130, BNP 199, TOTAL PROTEIN 5.7, ALBUMIN 2.8. RESPIRATORY VIRAL PANEL IS PENDING. BLOOD CULTURES ARE PENDING. A CHEST XRAY WAS OBTAINED THIS MORNING AND REVEALED: Similar congestion and possible mild edema. SHE IS CURRENTLY RECEIVING ZOSYN 3.375G IV BID, LASIX 40MG BID, TOPROL XL 25MG DAILY, DUONEBS QID, PULMICORT NEBS BID. HER HOME MEDICATIONS OF ALLOPURINOL, PLAVIX, PEPCID, FERROUS GLUCONATE, APRESOLINE, AND HEMOCYTE PLUS WERE RESUMED. WE HAVE RESTRICTED HER FLUID INTAKE TO LESS THAN 1000 ML/DAY. WE WILL HAVE , COUNTER MOLDER, SEE HER TODAY. OTHERWISE, WE WILL CONTINUE WITH CURRENT PLAN OF CARE. WE WILL FOLLOW UP WITH AM LABS AND CONTINUE TO MONITOR. TIME SPENT ON CLINICAL ASSESSMENT, REVIEWING LABS AND IMAGING, DECISION MAKING, AND DOCUMENTATION GREATER THAN 45 MINUTES. - Past Medical Family Social History Allergies: Allergies cephalexin [From Keflex] Allergy (Verified 04/12/23 12:00) nitrofurantoin [From Macrobid] Allergy (Verified 04/12/23 12:00) Sulfa (Sulfonamide Antibiotics) Allergy (Verified 04/12/23 12:00) - Review of Systems ROS: No change since H&P - Vital Signs and I&O's Vital Signs: Vital Signs Temperature 98.5 F Temperature 97.5 F Pulse Rate [Brachial] 113 Pulse Rate [Brachial] 100 Pulse Rate 104 Respiratory Rate 23 Respiratory Rate 22 Blood Pressure [Right Arm] 150/75 Blood Pressure [Right Arm] 141/67 O2 Sat by Pulse Oximetry 98 O2 Sat by Pulse Oximetry 100 O2 Sat by Pulse Oximetry 98 Intake and Output: Intake & Output 07/16/23 07/17/23 07/18/23 07/19/23 11:59 11:59 11:59 11:59 Intake Total 1343 / 1343 1000 / 1000 1023 / 1023 608 / 608 Balance 1343 / 1343 1000 / 1000 1023 / 1023 608 / 608 - Physical Exam Oriented: Normal Eyes: Normal Throat: Normal Respiratory: Generalized, Diminished Cardiovascular: Tachycardia, Irregular (A-FIB), Edema (2+ pitting edema) Auscultation: Bowel Sounds: Normal Tenderness: Normal Skin: Normal Musculoskeletal: Normal Psychiatric: Normal Mood Description: Calm Affect: Normal Speech Pattern: Clear, Appropriate - Laboratory and Diagnostics Result Diagrams: 07/18/23 05:51 07/18/23 05:51 Labs: 07/13/23 13:14 Blood Blood Culture - Final 07/13/23 13:08 Blood Blood Culture - Final Laboratory WBC 7.7 X10^3/uL (3.6-10.0) 07/18/23 05:51 RBC 2.72 X10^6/uL (3.5-5.4) L 07/18/23 05:51 Hgb 8.5 g/dL (12.0-16.0) L 07/18/23 05:51 Hct 26.1 % (36.0-47.0) L 07/18/23 05:51 MCV 95.9 fL (80.0-100.0) 07/18/23 05:51 MCH 31.4 pg (27.0-34.0) 07/18/23 05:51 MCHC 32.8 g/dL (33.0-35.0) L 07/18/23 05:51 RDW 15.9 % (11.6-16.5) 07/18/23 05:51 Plt Count 155 X10^3/uL (150.0-450.0) 07/18/23 05:51 MPV 8.6 fL (7.4-11.0) 07/18/23 05:51 Neut % (Auto) 75.1 % (42.0-75.0) H 07/18/23 05:51 Lymph % (Auto) 11.4 % (21.0-51.0) L 07/18/23 05:51 [place] % (Auto) 8.8 % (0.0-13.0) 07/18/23 05:51 Eos % (Auto) 3.6 % (0.9-2.9) H 07/18/23 05:51 Baso % (Auto) 1.1 % (0.2-1.0) H 07/18/23 05:51 Neut # (Auto) 5.8 x10^3/uL (2.2-4.8) H 07/18/23 05:51 Lymph # (Auto) 0.9 X10^3/uL (1.3-2.9) L 07/18/23 05:51 [place] # (Auto) 0.7 x10^3/uL (0.3-0.8) 07/18/23 05:51 Eos # (Auto) 0.3 x10^3/uL (0.0-0.2) H 07/18/23 05:51 Baso # (Auto) 0.1 X10^3/uL (0.0-0.1) 07/18/23 05:51 Absolute Nucleated RBC 0.1 /100WBC 07/18/23 05:51 PT 15.0 SECONDS (11.8-14.3) 07/13/23 10:33 INR Target Range - 07/13/23 10:33 INR 1.20 (0.8-1.3) 07/13/23 10:33 APTT 27.0 SECONDS (22.9-36.5) 07/13/23 10:33 PTT Comment - 07/13/23 10:33 D-Dimer 1.61 ug/ml (0.0-0.57) H 07/13/23 10:33 Sodium 135 mmol/L (136-145) L 07/18/23 05:51 Corrected Sodium TNP 07/18/23 05:51 Potassium 3.7 mmol/L (3.5-5.1) 07/18/23 05:51 Chloride 100 mmol/L (98-107) 07/18/23 05:51 Carbon Dioxide 26.9 mmol/L (21-32) 07/18/23 05:51 BUN 44 mg/dL (7-18) H 07/18/23 05:51 Creatinine 2.44 mg/dL (0.55-1.02) H 07/18/23 05:51 Est GFR (MDRD) Af Amer 24 (>60) L 07/18/23 05:51 Est GFR (MDRD) Non-Af 20 (>60) L 07/18/23 05:51 Glucose 107 mg/dL (65-99) H 07/18/23 05:51 Calcium 8.1 mg/dL (8.5-10.1) L 07/18/23 05:51 Corrected Calcium 9.1 mg/dL (8.5-10.1) 07/18/23 05:51 Magnesium 2.2 mg/dL (2.0-2.9) 07/17/23 05:44 Total Bilirubin 0.40 mg/dL (0.2-1.0) 07/18/23 05:51 AST 22 Units/L (15-37) 07/18/23 05:51 ALT 16 Units/L (12-78) 07/18/23 05:51 Alkaline Phosphatase 130 Units/L (46-116) H 07/18/23 05:51 Creatine Kinase 46 Units/L (26-192) 07/13/23 10:33 Troponin I High Sens 14.9 ng/L (4.0-60.0) 07/13/23 10:33 B-Natriuretic Peptide 999 pg/mL (0-79) H 07/18/23 05:51 Total Protein 5.7 g/dL (6.4-8.2) L 07/18/23 05:51 Albumin 2.8 g/dL (3.4-5.0) L 07/18/23 05:51 Globulin 2.9 g/dL (2.5-4.5) 07/18/23 05:51 Albumin/Globulin Ratio 1.0 Ratio (1.1-2.1) L 07/18/23 05:51 Resp Viral Panel (PCR) See scanned report 07/13/23 17:13 - Plan (1) CHF exacerbation Status: Acute Qualifiers: Heart failure type: unspecified Qualified Code(s): I50.9 - Heart failure, unspecified Plan: FLUID RESTRICTION, ZOSYN 3.375G IV BID, LASIX 40MG BID,TOPROL XL 25MG DAILY DUONEBS QID, PULMICORT NEBS BID. HER HOME MEDICATIONS OF ALLOPURINOL, PLAVIX, PEPCID, FERROUS GLUCONATE, APRESOLINE, AND HEMOCYTE PLUS WERE RESUMED (2) COPD exacerbation Status: Acute (3) Pneumonia Status: Acute Qualifiers: Pneumonia type: due to unspecified organism Laterality: bilateral Lung location: unspecified part of lung Qualified Code(s): J18.9 - Pneumonia, unspecified organism (4) Atrial fibrillation Status: Acute Qualifiers: Atrial fibrillation type: paroxysmal Qualified Code(s): I48.0 - Paroxysmal atrial fibrillation (5) CAD (coronary artery disease) Status: Chronic Qualifiers: Coronary Disease-Associated Artery/Lesion type: [place] artery [place] vs. transplanted heart: [place] heart Associated angina: without angina Qualified Code(s): I25.10 - Atherosclerotic heart disease of [place] coronary artery without angina pectoris (6) Anemia Status: None Qualifiers: Anemia type: iron deficiency Iron deficiency anemia type: unspecified iron deficiency Qualified Code(s): D50.9 - Iron deficiency anemia, unspecified (7) GERD (gastroesophageal reflux disease) Status: Chronic Qualifiers: Esophagitis presence: esophagitis presence not specified Qualified Code(s): K21.9 - Gastro-esophageal reflux disease without esophagitis (8) HTN (hypertension) Status: Chronic Qualifiers: Hypertension type: primary hypertension Qualified Code(s): I10 - Essential (primary) hypertension (9) S/P TAVR (transcatheter aortic valve replacement) Status: Acute
[2023-07-19] MEDS: TYLENOL 325 MG TAB PO PRN ×2 (01:44→20:33)
--- NOTE | 2023-07-19 06:18 | EKG ---
Test Reason : Afib Blood Pressure : */* mmHG Vent. Rate : 86 BPM Atrial Rate : * BPM P-R Int : * ms QRS Dur : 174 ms QT Int : 496 ms P-R-T Axes : * -10 162 degrees QTc Int : 593 ms Atrial fibrillation Left bundle branch block Abnormal ECG When compared with ECG of 18-JUL-2023 10:14, Nonspecific T wave abnormality has replaced inverted T waves in Lateral leads Confirmed by Case Huddleston MD ([id number] on 07/19/2023 7:49:03 AM Referred By: Confirmed By: Case Huddleston MD
[2023-07-19] MEDS: CORDARONE TAB 200 MG PO SCH ×2 (06:21→16:51)
[2023-07-19 06:42] LABS: INR 1.12 (0.8-1.3)
[2023-07-19 06:44] LABS: BASOPHILS # (AUTO) 0.1 X10^3/uL (0.0-0.1); BASOPHILS % (AUTO) 1.3 % (0.2-1.0); EOSINOPHILS # (AUTO) 0.4 x10^3/uL (0.0-0.2); EOSINOPHILS % (AUTO) 4.3 % (0.9-2.9); HEMATOCRIT 27.1 % (36.0-47.0); LYMPHOCYTES # (AUTO) 1.2 X10^3/uL (1.3-2.9); LYMPHOCYTES % (AUTO) 13.5 % (21.0-51.0); MEAN CORPUSCULAR HEMOGLOBIN 31.7 pg (27.0-34.0); MEAN CORPUSCULAR HGB CONC 33.1 g/dL (33.0-35.0); MEAN CORPUSCULAR VOLUME 95.7 fL (80.0-100.0); MEAN PLATELET VOLUME 8.9 fL (7.4-11.0); MONOCYTES # (AUTO) 0.8 x10^3/uL (0.3-0.8); MONOCYTES % (AUTO) 9.3 % (0.0-13.0); NEUTROPHILS # (AUTO) 6.1 x10^3/uL (2.2-4.8); NEUTROPHILS % (AUTO) 71.6 % (42.0-75.0); PLATELET COUNT 163 X10^3/uL (150.0-450.0); RED BLOOD COUNT 2.83 X10^6/uL (3.5-5.4); RED CELL DISTRIBUTION WIDTH 15.6 % (11.6-16.5); RETICULOCYTE % 2.11 % (0.8-2.2)
[2023-07-19 07:06] LABS: ALANINE AMINOTRANSFERASE 21 Units/L (12-78); ALKALINE PHOSPHATASE 134 Units/L (46-116); ASPARTATE AMINO TRANSFERASE 25 Units/L (15-37); BLOOD UREA NITROGEN 45 mg/dL (7-18); CALCIUM 8.2 mg/dL (8.5-10.1); CARBON DIOXIDE 24.8 mmol/L (21-32); CHLORIDE 98 mmol/L (98-107); CREATININE 2.51 mg/dL (0.55-1.02); GLUCOSE 106 mg/dL (65-99); POTASSIUM 3.4 mmol/L (3.5-5.1); SODIUM 132 mmol/L (136-145); TOTAL PROTEIN 6.1 g/dL (6.4-8.2); TSH (3RD GENERATION) 2.872 uIU/mL (0.358-3.74); eGFR NON BLACK RACES 19 (>60)
[2023-07-19 07:19] LABS: IRON 27 ug/dL (50-175); TOTAL IRON BINDING CAPACITY 271 ug/dL (250-450)
[2023-07-19 07:24] LABS: PLATELET MORPHOLOGY COMMENT NORMAL (NORMAL); WHITE BLOOD COUNT 9.2 X10^3/uL (3.6-10.0)
[2023-07-19] MEDS: LASIX IVP SCH ×2 (08:24→17:15)
[2023-07-19] MEDS: ZOSYN VIAL 3.375 GRAMS 3.375 G in NS 100 ML IV 100 ML IV SCH ×2 (08:25→20:32)
[2023-07-19] MEDS: APRESOLINE TAB 25 MG PO SCH ×2 (08:27→20:32)
[2023-07-19] MEDS: TOPROL XL PO SCH (08:27)
[2023-07-19] MEDS: ZYLOPRIM PO SCH (08:28)
[2023-07-19] MEDS: PEPCID TAB 20 MG PO SCH (08:29)
[2023-07-19] MEDS: HEMOCYTE-PLUS PO SCH (08:30)
[2023-07-19] MEDS: FERROUS GLUCONATE PO SCH (08:30)
[2023-07-19] MEDS: PULMICORT NEB TX 0.5 MG NEB SCH ×2 (09:13→20:00)
[2023-07-19] MEDS: DUONEB 0.5 MG/3 MG (3 mL) NEB SCH ×4 (09:13→20:00)
--- NOTE | 2023-07-19 09:53 | RAD ---
EXAM:Portable AP chestHISTORY:SOBCOMPARISON:July 18, 2023FINDINGS:Stable cardiac enlargement and pulmonary vascular congestion and interstitial prominence. There is no additional consolidation, complicating pneumothorax or developing large pleural effusion.IMPRESSION:No change. Appearance of the lungs is suggestive of mild CHF. Cardiomegaly is stable.THIS IS AN ELECTRONICALLY VERIFIED FINAL ADHEYB2307/19/2023 9:50 AM - Electronically signed by Kali Guevara MD
[2023-07-19] MEDS ORDERED: CONSULT PHARMACY - POTASSIUM & MAGNESIUM XX SCH (15:00)
[2023-07-19] MEDS: K-DUR TAB 20 MEQ PO SCH ×2 (16:20→20:32)
[2023-07-19] MEDS: COUMADIN TAB 5 MG (JANTOVEN) PO SCH (20:33)
[2023-07-20] MEDS: CORDARONE TAB 200 MG PO SCH ×2 (06:07→17:12)
[2023-07-20 06:23] LABS: BASOPHILS # (AUTO) 0.1 X10^3/uL (0.0-0.1); BASOPHILS % (AUTO) 1.2 % (0.2-1.0); EOSINOPHILS # (AUTO) 0.3 x10^3/uL (0.0-0.2); EOSINOPHILS % (AUTO) 5.1 % (0.9-2.9); HEMOGLOBIN 8.5 g/dL (12.0-16.0); LYMPHOCYTES # (AUTO) 0.9 X10^3/uL (1.3-2.9); LYMPHOCYTES % (AUTO) 14.5 % (21.0-51.0); MEAN CORPUSCULAR HEMOGLOBIN 31.3 pg (27.0-34.0); MEAN CORPUSCULAR HGB CONC 32.8 g/dL (33.0-35.0); MEAN CORPUSCULAR VOLUME 95.3 fL (80.0-100.0); MONOCYTES # (AUTO) 0.6 x10^3/uL (0.3-0.8); MONOCYTES % (AUTO) 9.8 % (0.0-13.0); NEUTROPHILS # (AUTO) 4.4 x10^3/uL (2.2-4.8); NEUTROPHILS % (AUTO) 69.4 % (42.0-75.0); PLATELET COUNT 156 X10^3/uL (150.0-450.0); RED BLOOD COUNT 2.73 X10^6/uL (3.5-5.4); RED CELL DISTRIBUTION WIDTH 15.3 % (11.6-16.5); WHITE BLOOD COUNT 6.3 X10^3/uL (3.6-10.0)
[2023-07-20 06:39] LABS: ALANINE AMINOTRANSFERASE 19 Units/L (12-78); ALBUMIN 2.8 g/dL (3.4-5.0); ALKALINE PHOSPHATASE 125 Units/L (46-116); ASPARTATE AMINO TRANSFERASE 27 Units/L (15-37); BLOOD UREA NITROGEN 48 mg/dL (7-18); CALCIUM 7.8 mg/dL (8.5-10.1); CARBON DIOXIDE 24.9 mmol/L (21-32); CHLORIDE 98 mmol/L (98-107); COR CA(FOR HYPOALB) 8.8 mg/dL (8.5-10.1); CREATININE 2.85 mg/dL (0.55-1.02); GLUCOSE 100 mg/dL (65-99); POTASSIUM 3.5 mmol/L (3.5-5.1); SODIUM 132 mmol/L (136-145); TOTAL PROTEIN 5.8 g/dL (6.4-8.2); eGFR NON BLACK RACES 17 (>60)
--- NOTE | 2023-07-20 07:47 | RAD ---
EXAM:Portable chestHISTORY:07/19/2023OMPARISON:2022FINDINGS:Heart remains enlarged. Asha are slightly indistinct in the interstitium is prominent suggestive of mild congestive heart failure unchanged from the prior examination. No alveolar edema, alveolar infiltrates, or pleural effusions identified. Mild hyperinflation is present. 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
[2023-07-20] MEDS: ZOSYN VIAL 3.375 GRAMS 3.375 G in NS 100 ML IV 100 ML IV SCH ×2 (08:35→21:25)
[2023-07-20] MEDS: DUONEB 0.5 MG/3 MG (3 mL) NEB SCH ×5 (08:37→21:21)
[2023-07-20] MEDS: LASIX IVP SCH ×2 (08:38→17:03)
[2023-07-20] MEDS: ZYLOPRIM PO SCH (08:39)
[2023-07-20] MEDS: APRESOLINE TAB 25 MG PO SCH ×2 (08:40→21:14)
[2023-07-20] MEDS: HEMOCYTE-PLUS PO SCH (08:41)
[2023-07-20] MEDS: TOPROL XL PO SCH (08:42)
[2023-07-20] MEDS: FERROUS GLUCONATE PO SCH (08:42)
[2023-07-20] MEDS: PULMICORT NEB TX 0.5 MG NEB SCH ×2 (08:42→21:21)
--- NOTE | 2023-07-20 12:32 | PCM.PROG ---
Progress Note - Progress Note for Day of Date of Exam: 07/19/23 - Subjective Subjective: IS A 82 YEAR OLD PATIENT OF OURS. SHE HAS A PMH OF CAD, CHF, HTN, GERD, COPD. 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 SHE IS CURRENTLY INPATIENT STATUS FOR TREATMENT OF CHF EXACERBATION, COPD EXACERBATION, BILATERAL PNEUMONIA, ATRIAL FIBRILLATION, ANEMIA. TODAY, SHE IS ALERT AND ORIENTED, SITTING IN THE CHAIR ON MORNING ROUNDS. SHE CONTINUES TO COMPLAINS OF SHORNTESS OF BREATH AND LOWER EXTREMITY SWELLING THIS MORNING. SHE REPORTS SLIGHT IMPROVEMENT IN SHORTNESS OF BREATH AND SWELLING TODAY. SHE REPORTS THAT SHORTNESS OF BREATH IS WORSE ON EXERTION. , NON DESTRUCTIVE TESTING SCIENTIST, SAW HER YESTERDAY AND MADE SOME CHANGES TO HER MEDICATIONS. SHE IS CURRENTLY UTILIZING OXYGEN VIA NASAL CANNULA AT 2 LPM AND USES THE CPAP AT NIGHT. ON EXAMINATION THIS MORNING, SHE IS SLIGHTLY TACHYCARDIC WITH HR 100-110 BPM. ATRIAL FIBRILLATION NOTED. BILATERAL LUNGS ARE NOTED WITH DIMINISHED LUNG SOUNDS THROUGHOUT. ABDOMEN IS ROUND, SOFT, AND NON-TENDER WITH NORMAL BOWEL SOUNDS NOTED IN ALL QUADRANTS. GOOD RANGE OF MOTION NOTED TO UPPER AND LOWER EXTREMITIES. THERE IS 1+ PITTING EDEMA OF LOWER EXTREMITIES NOTED. HER VITALS THIS MORNING ARE: 97.7-87-18-95%-136/79. LABS WERE OBTAINED. WBC 9.2, RBC 2.83, HGB 9.0, HCT 27.1, PLT COUNT 163, SODIUM 132, POTASSIUM 3.4, CHLORIDE 98, BUN 45, CREATININE 2.51, GLUCOSE 106, CALCIUM 8.2, IRON 27, TIBC 271, FERRITIN 59, AST 25, ALT 21, ALK PHOS 134, BNP 1340, TOTAL PROTEIN 6.1, ALBUMIN 3.0, B12 >2000, FOLATE >20, TSH 2.872. RESPIRATORY VIRAL PANEL WAS POSITIVE FOR GROWTH OF STREPTOCOCCUS PNEUMONIAE. BLOOD CULTURES ARE PENDING. A CHEST XRAY WAS OBTAINED THIS MORNING AND REVEALED: No change. Appearance of the lungs is suggestive of mild CHF. Cardiomegaly is stable. SHE IS CURRENTLY RECEIVING ZOSYN 3.375G IV BID, LASIX 40MG BID, TOPROL XL 50MG DAILY, AMIODARONE 200MG BID, WARFARIN 5MG HS, DUONEBS QID, PULMICORT NEBS BID. HER HOME MEDICATIONS OF ALLOPURINOL, PLAVIX, PEPCID, FERROUS GLUCONATE, APRESOLINE, AND HEMOCYTE PLUS WERE RESUMED. WE HAVE RESTRICTED HER FLUID INTAKE TO LESS THAN 1000 ML/DAY. OTHERWISE, WE WILL CONTINUE WITH CURRENT PLAN OF CARE TODAY. WE WILL FOLLOW UP WITH AM LABS AND CONTINUE TO MONITOR. TIME SPENT ON CLINICAL ASSESSMENT, REVIEWING LABS AND IMAGING, DECISION MAKING, AND DOCUMENTATION GREATER THAN 45 MINUTES. - Past Medical Family Social History Past Med/Fam/Surg Hx: No changes since H&P Allergies: Allergies cephalexin [From Keflex] Allergy (Verified 04/12/23 12:00) nitrofurantoin [From Macrobid] Allergy (Verified 04/12/23 12:00) Sulfa (Sulfonamide Antibiotics) Allergy (Verified 04/12/23 12:00) - Review of Systems ROS: No change since H&P - Vital Signs and I&O's Vital Signs: Vital Signs Temperature 97.6 F Pulse Rate [Brachial] 88 Respiratory Rate 20 Blood Pressure [Right Arm] 149/74 O2 Sat by Pulse Oximetry 93 Intake and Output: Intake & Output 07/18/23 07/19/23 07/20/23 07/21/23 11:59 11:59 11:59 11:59 Intake Total 1023 / 1023 1713 / 1713 1043 / 1043 Balance 1023 / 1023 1713 / 1713 1043 / 1043 - Physical Exam Oriented: Normal Eyes: Normal Ear: Normal Nose: Normal Throat: Normal Respiratory: Generalized, Diminished Cardiovascular: Irregular (A-FIB), Edema (2+ pitting edema) Auscultation: Bowel Sounds: Normal Palpation: Normal Tenderness: Normal Skin: Normal Musculoskeletal: Normal Psychiatric: Normal Mood Description: Calm Affect: Normal Speech Pattern: Clear, Appropriate - Laboratory and Diagnostics Result Diagrams: 07/20/23 05:23 07/20/23 05:23 Labs: 07/13/23 13:14 Blood Blood Culture - Final 07/13/23 13:08 Blood Blood Culture - Final Laboratory WBC 6.3 X10^3/uL (3.6-10.0) 07/20/23 05:23 RBC 2.73 X10^6/uL (3.5-5.4) L 07/20/23 05:23 Hgb 8.5 g/dL (12.0-16.0) L 07/20/23 05:23 Hct 26.0 % (36.0-47.0) L 07/20/23 05:23 MCV 95.3 fL (80.0-100.0) 07/20/23 05:23 MCH 31.3 pg (27.0-34.0) 07/20/23 05:23 MCHC 32.8 g/dL (33.0-35.0) L 07/20/23 05:23 RDW 15.3 % (11.6-16.5) 07/20/23 05:23 Plt Count 156 X10^3/uL (150.0-450.0) 07/20/23 05:23 Plt Count Comment Adequate (ADEQUATE) 07/19/23 05:44 MPV 9.0 fL (7.4-11.0) 07/20/23 05:23 Neut % (Auto) 69.4 % (42.0-75.0) 07/20/23 05:23 Lymph % (Auto) 14.5 % (21.0-51.0) L 07/20/23 05:23 [place] % (Auto) 9.8 % (0.0-13.0) 07/20/23 05:23 Eos % (Auto) 5.1 % (0.9-2.9) H 07/20/23 05:23 Baso % (Auto) 1.2 % (0.2-1.0) H 07/20/23 05:23 Neut # (Auto) 4.4 x10^3/uL (2.2-4.8) 07/20/23 05:23 Lymph # (Auto) 0.9 X10^3/uL (1.3-2.9) L 07/20/23 05:23 [place] # (Auto) 0.6 x10^3/uL (0.3-0.8) 07/20/23 05:23 Eos # (Auto) 0.3 x10^3/uL (0.0-0.2) H 07/20/23 05:23 Baso # (Auto) 0.1 X10^3/uL (0.0-0.1) 07/20/23 05:23 Absolute Nucleated RBC 0.1 /100WBC 07/20/23 05:23 Plt Morphology Comment Normal (NORMAL) 07/19/23 05:44 RBC Morphology Normal (NORMAL) 07/19/23 05:44 Absolute Retic 0.0599 10^6/uL 07/19/23 05:44 Percent Retic 2.11 % (0.8-2.2) 07/19/23 05:44 PT 15.0 SECONDS (11.8-14.3) 07/20/23 05:23 INR Target Range - 07/20/23 05:23 INR 1.20 (0.8-1.3) 07/20/23 05:23 APTT 27.0 SECONDS (22.9-36.5) 07/13/23 10:33 PTT Comment - 07/13/23 10:33 D-Dimer 1.61 ug/ml (0.0-0.57) H 07/13/23 10:33 Sodium 132 mmol/L (136-145) L 07/20/23 05:23 Corrected Sodium TNP 07/20/23 05:23 Potassium 3.5 mmol/L (3.5-5.1) 07/20/23 05:23 Chloride 98 mmol/L (98-107) 07/20/23 05:23 Carbon Dioxide 24.9 mmol/L (21-32) 07/20/23 05:23 BUN 48 mg/dL (7-18) H 07/20/23 05:23 Creatinine 2.85 mg/dL (0.55-1.02) H 07/20/23 05:23 Est GFR (MDRD) Af Amer 20 (>60) L 07/20/23 05:23 Est GFR (MDRD) Non-Af 17 (>60) L 07/20/23 05:23 Glucose 100 mg/dL (65-99) H 07/20/23 05:23 Calcium 7.8 mg/dL (8.5-10.1) L 07/20/23 05:23 Corrected Calcium 8.8 mg/dL (8.5-10.1) 07/20/23 05:23 Magnesium 2.1 mg/dL (2.0-2.9) 07/20/23 05:23 Iron 27 ug/dL (50-175) L 07/19/23 05:44 TIBC 271 ug/dL (250-450) 07/19/23 05:44 % Saturation 10.0 % (11.0-46.0) L 07/19/23 05:44 Ferritin 59 ng/mL (8-252) 07/19/23 05:44 Total Bilirubin 0.30 mg/dL (0.2-1.0) 07/20/23 05:23 AST 27 Units/L (15-37) 07/20/23 05:23 ALT 19 Units/L (12-78) 07/20/23 05:23 Alkaline Phosphatase 125 Units/L (46-116) H 07/20/23 05:23 Creatine Kinase 46 Units/L (26-192) 07/13/23 10:33 Troponin I High Sens 14.9 ng/L (4.0-60.0) 07/13/23 10:33 B-Natriuretic Peptide 1350 pg/mL (0-79) H 07/20/23 05:23 Total Protein 5.8 g/dL (6.4-8.2) L 07/20/23 05:23 Albumin 2.8 g/dL (3.4-5.0) L 07/20/23 05:23 Globulin 3.0 g/dL (2.5-4.5) 07/20/23 05:23 Albumin/Globulin Ratio 0.9 Ratio (1.1-2.1) L 07/20/23 05:23 Vitamin B12 > 2000 pg/mL (193-986) H 07/19/23 05:44 Folate > 20.0 ng/mL (>8.6) 07/19/23 05:44 TSH 3rd Generation 2.872 uIU/mL (0.358-3.74) 07/19/23 05:44 Stl Occult Blood (IFOB) Negative (NEGATIVE) 07/19/23 10:38 Resp Viral Panel (PCR) See scanned report 07/13/23 17:13 - Plan (1) CHF exacerbation Status: Acute Qualifiers: Heart failure type: unspecified Qualified Code(s): I50.9 - Heart failure, unspecified Plan: FLUID RESTRICTION, ZOSYN 3.375G IV BID, LASIX 40MG BID, TOPROL XL 50MG DAILY, AMIODARONE 200MG BID, WARFARIN 5MG HS, DUONEBS QID, PULMICORT NEBS BID. HER HOME MEDICATIONS OF ALLOPURINOL, PLAVIX, PEPCID, FERROUS GLUCONATE, APRESOLINE, AND HEMOCYTE PLUS WERE RESUMED. (2) COPD exacerbation Status: Acute (3) Pneumonia Status: Acute Qualifiers: Pneumonia type: due to unspecified organism Laterality: bilateral Lung location: unspecified part of lung Qualified Code(s): J18.9 - Pneumonia, unspecified organism (4) Atrial fibrillation Status: Acute Qualifiers: Atrial fibrillation type: paroxysmal Qualified Code(s): I48.0 - Paroxysmal atrial fibrillation (5) CAD (coronary artery disease) Status: Chronic Qualifiers: Coronary Disease-Associated Artery/Lesion type: [place] artery [place] vs. transplanted heart: [place] heart Associated angina: without angina Qualified Code(s): I25.10 - Atherosclerotic heart disease of [place] coronary artery without angina pectoris (6) Anemia Status: None Qualifiers: Anemia type: iron deficiency Iron deficiency anemia type: unspecified iron deficiency Qualified Code(s): D50.9 - Iron deficiency anemia, unspecified (7) GERD (gastroesophageal reflux disease) Status: Chronic Qualifiers: Esophagitis presence: esophagitis presence not specified Qualified Code(s): K21.9 - Gastro-esophageal reflux disease without esophagitis (8) HTN (hypertension) Status: Chronic Qualifiers: Hypertension type: primary hypertension Qualified Code(s): I10 - Essential (primary) hypertension (9) S/P TAVR (transcatheter aortic valve replacement) Status: Acute
[2023-07-20] MEDS: ROBITUSSIN DM PO SCH ×4 (12:54→21:25)
--- NOTE | 2023-07-20 13:11 | PCM.PROG ---
Progress Note - Progress Note for Day of Date of Exam: 07/20/23 - Subjective Subjective: IS A 82 YEAR OLD PATIENT OF OURS. SHE HAS A PMH OF CAD, CHF, HTN, GERD, COPD. 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 SHE IS CURRENTLY INPATIENT STATUS FOR TREATMENT OF CHF EXACERBATION, COPD EXACERBATION, BILATERAL PNEUMONIA, ATRIAL FIBRILLATION, ANEMIA. TODAY, SHE IS ALERT AND ORIENTED, SITTING IN THE CHAIR ON MORNING ROUNDS. SHE CONTINUES TO COMPLAINS OF SHORNTESS OF BREATH THIS MORNING. SHE ALSO REPORTS A PRODUCTIVE COUGH. SHE REPORTS THAT SHORTNESS OF BREATH IS WORSE ON EXERTION. , PAPER REELER, SAW HER ON SUNDAY AND MADE SOME CHANGES TO HER MEDICATIONS. SHE IS CURRENTLY UTILIZING OXYGEN VIA NASAL CANNULA AT 2 LPM AND USES THE CPAP AT NIGHT. ON EXAMINATION THIS MORNING, HEART IS REGULAR IN RATE. ATRIAL FIBRILLATION NOTED. BILATERAL LUNGS ARE NOTED WITH DIMINISHED LUNG SOUNDS THROUGHOUT. ABDOMEN IS ROUND, SOFT, AND NON-TENDER WITH NORMAL BOWEL SOUNDS NOTED IN ALL QUADRANTS. GOOD RANGE OF MOTION NOTED TO UPPER AND LOWER EXTREMITIES. THERE IS 1+ PITTING EDEMA OF LOWER EXTREMITIES NOTED. HER VITALS THIS MORNING ARE: 97.6-88-20-93%-149/74. LABS WERE OBTAINED. WBC 6.3, RBC 2.73, HGB 8.5, HCT 26.0, PLT COUNT 156, INR 1.20, SODIUM 132, CHLORIDE 98, POTASSIUM 3.5, BUN 48, CREATININE 2.85, GLUCOSE 100, CALCIUM 7.8, AST 27, ALT 19, ALK PHOS 125, BNP 1350, TOTAL PROTEIN 5.8, ALBUMIN 2.8. RESPIRATORY VIRAL PANEL WAS POSITIVE FOR GROWTH OF STREPTOCOCCUS PNEUMONIAE. BLOOD CULTURES ARE PENDING. A CHEST XRAY WAS OBTAINED THIS MORNING AND REVEALED: Heart remains enlarged. Asha are slightly indistinct in the interstitium is prominent suggestive of mild congestive heart failure unchanged from the prior examination. No alveolar edema, alveolar infiltrates, or pleural effusions identified. Mild hyperinflation is present. Bony thorax is unremarkable with the exception of a partially visualized left shoulder arthroplasty and severe degenerative joint disease in the right glenohumeral joint. SHE IS CURRENTLY RECEIVING ZOSYN 3.375G IV BID, LASIX 40MG BID, TOPROL XL 50MG DAILY, AMIODARONE 200MG BID, WARFARIN 5MG HS, DUONEBS QID, PULMICORT NEBS BID. HER HOME M EDICATIONS OF ALLOPURINOL, PLAVIX, PEPCID, FERROUS GLUCONATE, APRESOLINE, AND HEMOCYTE PLUS WERE RESUMED. WE HAVE RESTRICTED HER FLUID INTAKE TO LESS THAN 1000 ML/DAY. TODAY, WE WILL ADD ROBITUSSIN DM 10ML QID AND ORDER FOR HER TO WEAR THE BIPAP MUCH SHE CAN TOLERATE. OTHERWISE, WE WILL CONTINUE WITH CURRENT PLAN OF CARE TODAY. WE WILL FOLLOW UP WITH AM LABS AND CONTINUE TO MONITOR. TIME SPENT ON CLINICAL ASSESSMENT, REVIEWING LABS AND IMAGING, DECISION MAKING, AND DOCUMENTATION GREATER THAN 45 MINUTES. - Past Medical Family Social History Past Med/Fam/Surg Hx: No changes since H&P Allergies: Allergies cephalexin [From Keflex] Allergy (Verified 04/12/23 12:00) nitrofurantoin [From Macrobid] Allergy (Verified 04/12/23 12:00) Sulfa (Sulfonamide Antibiotics) Allergy (Verified 04/12/23 12:00) - Review of Systems ROS: No change since H&P - Vital Signs and I&O's Vital Signs: Vital Signs Temperature 97.5 F Temperature 97.6 F Pulse Rate [Brachial] 82 Pulse Rate [Brachial] 88 Respiratory Rate 22 Respiratory Rate 20 Blood Pressure [Right Arm] 139/86 Blood Pressure [Right Arm] 149/74 O2 Sat by Pulse Oximetry 98 O2 Sat by Pulse Oximetry 93 Intake and Output: Intake & Output 07/18/23 07/19/23 07/20/23 07/21/23 11:59 11:59 11:59 11:59 Intake Total 1023 / 1023 1713 / 1713 1043 / 1043 Balance 1023 / 1023 1713 / 1713 1043 / 1043 - Physical Exam Oriented: Normal Eyes: Normal Ear: Normal Nose: Normal Throat: Normal Respiratory: Generalized, Diminished Cardiovascular: Irregular (A-FIB), Edema (2+ pitting edema) Auscultation: Bowel Sounds: Normal Tenderness: Normal Skin: Normal Musculoskeletal: Normal Psychiatric: Normal Mood Description: Calm Affect: Normal Speech Pattern: Clear, Appropriate - Laboratory and Diagnostics Result Diagrams: 07/20/23 05:23 07/20/23 05:23 Labs: 07/13/23 13:14 Blood Blood Culture - Final 07/13/23 13:08 Blood Blood Culture - Final Laboratory WBC 6.3 X10^3/uL (3.6-10.0) 07/20/23 05:23 RBC 2.73 X10^6/uL (3.5-5.4) L 07/20/23 05:23 Hgb 8.5 g/dL (12.0-16.0) L 07/20/23 05:23 Hct 26.0 % (36.0-47.0) L 07/20/23 05:23 MCV 95.3 fL (80.0-100.0) 07/20/23 05:23 MCH 31.3 pg (27.0-34.0) 07/20/23 05:23 MCHC 32.8 g/dL (33.0-35.0) L 07/20/23 05:23 RDW 15.3 % (11.6-16.5) 07/20/23 05:23 Plt Count 156 X10^3/uL (150.0-450.0) 07/20/23 05:23 Plt Count Comment Adequate (ADEQUATE) 07/19/23 05:44 MPV 9.0 fL (7.4-11.0) 07/20/23 05:23 Neut % (Auto) 69.4 % (42.0-75.0) 07/20/23 05:23 Lymph % (Auto) 14.5 % (21.0-51.0) L 07/20/23 05:23 [place] % (Auto) 9.8 % (0.0-13.0) 07/20/23 05:23 Eos % (Auto) 5.1 % (0.9-2.9) H 07/20/23 05:23 Baso % (Auto) 1.2 % (0.2-1.0) H 07/20/23 05:23 Neut # (Auto) 4.4 x10^3/uL (2.2-4.8) 07/20/23 05:23 Lymph # (Auto) 0.9 X10^3/uL (1.3-2.9) L 07/20/23 05:23 [place] # (Auto) 0.6 x10^3/uL (0.3-0.8) 07/20/23 05:23 Eos # (Auto) 0.3 x10^3/uL (0.0-0.2) H 07/20/23 05:23 Baso # (Auto) 0.1 X10^3/uL (0.0-0.1) 07/20/23 05:23 Absolute Nucleated RBC 0.1 /100WBC 07/20/23 05:23 Plt Morphology Comment Normal (NORMAL) 07/19/23 05:44 RBC Morphology Normal (NORMAL) 07/19/23 05:44 Absolute Retic 0.0599 10^6/uL 07/19/23 05:44 Percent Retic 2.11 % (0.8-2.2) 07/19/23 05:44 PT 15.0 SECONDS (11.8-14.3) 07/20/23 05:23 INR Target Range - 07/20/23 05: INR 1.20 (0.8-1.3) 07/20/23 05:23 APTT 27.0 SECONDS (22.9-36.5) 07/13/23 10:33 PTT Comment - 07/13/23 10:33 D-Dimer 1.61 ug/ml (0.0-0.57) H 07/13/23 10:33 Sodium 132 mmol/L (136-145) L 07/20/23 05:23 Corrected Sodium TNP 07/20/23 05:23 Potassium 3.5 mmol/L (3.5-5.1) 07/20/23 05:23 Chloride 98 mmol/L (98-107) 07/20/23 05:23 Carbon Dioxide 24.9 mmol/L (21-32) 07/20/23 05:23 BUN 48 mg/dL (7-18) H 07/20/23 05:23 Creatinine 2.85 mg/dL (0.55-1.02) H 07/20/23 05:23 Est GFR (MDRD) Af Amer 20 (>60) L 07/20/23 05:23 Est GFR (MDRD) Non-Af 17 (>60) L 07/20/23 05:23 Glucose 100 mg/dL (65-99) H 07/20/23 05:23 Calcium 7.8 mg/dL (8.5-10.1) L 07/20/23 05:23 Corrected Calcium 8.8 mg/dL (8.5-10.1) 07/20/23 05:23 Magnesium 2.1 mg/dL (2.0-2.9) 07/20/23 05:23 Iron 27 ug/dL (50-175) L 07/19/23 05:44 TIBC 271 ug/dL (250-450) 07/19/23 05:44 % Saturation 10.0 % (11.0-46.0) L 07/19/23 05:44 Ferritin 59 ng/mL (8-252) 07/19/23 05:44 Total Bilirubin 0.30 mg/dL (0.2-1.0) 07/20/23 05:23 AST 27 Units/L (15-37) 07/20/23 05:23 ALT 19 Units/L (12-78) 07/20/23 05:23 Alkaline Phosphatase 125 Units/L (46-116) H 07/20/23 05:23 Creatine Kinase 46 Units/L (26-192) 07/13/23 10:33 Troponin I High Sens 14.9 ng/L (4.0-60.0) 07/13/23 10:33 B-Natriuretic Peptide 1350 pg/mL (0-79) H 07/20/23 05:23 Total Protein 5.8 g/dL (6.4-8.2) L 07/20/23 05:23 Albumin 2.8 g/dL (3.4-5.0) L 07/20/23 05:23 Globulin 3.0 g/dL (2.5-4.5) 07/20/23 05:23 Albumin/Globulin Ratio 0.9 Ratio (1.1-2.1) L 07/20/23 05:23 Vitamin B12 > 2000 pg/mL (193-986) H 07/19/23 05:44 Folate > 20.0 ng/mL (>8.6) 07/19/23 05:44 TSH 3rd Generation 2.872 uIU/mL (0.358-3.74) 07/19/23 05:44 Stl Occult Blood (IFOB) Negative (NEGATIVE) 07/19/23 10:38 Resp Viral Panel (PCR) See scanned report 07/13/23 17:13 - Plan (1) CHF exacerbation Status: Acute Qualifiers: Heart failure type: unspecified Qualified Code(s): I50.9 - Heart failure, unspecified Plan: FLUID RESTRICTION, ZOSYN 3.375G IV BID, LASIX 40MG BID, TOPROL XL 50MG DAILY, AMIODARONE 200MG BID, WARFARIN 5MG HS, DUONEBS QID, PULMICORT NEBS BID. HER HOME MEDICATIONS OF ALLOPURINOL, PLAVIX, PEPCID, FERROUS GLUCONATE, APRESOLINE, AND HEMOCYTE PLUS WERE RESUMED. (2) COPD exacerbation Status: Acute (3) Pneumonia Status: Acute Qualifiers: Pneumonia type: due to unspecified organism Laterality: bilateral Lung location: unspecified part of lung Qualified Code(s): J18.9 - Pneumonia, unspecified organism (4) Atrial fibrillation Status: Acute Qualifiers: Atrial fibrillation type: paroxysmal Qualified Code(s): I48.0 - Paroxysmal atrial fibrillation (5) CAD (coronary artery disease) Status: Chronic Qualifiers: Coronary Disease-Associated Artery/Lesion type: lime artery [place] vs. transplanted heart: lime heart Associated angina: without angina Qualified Code(s): I25.10 - Atherosclerotic heart disease of lime coronary artery without angina pectoris (6) Anemia Status: None Qualifiers: Anemia type: iron deficiency Iron deficiency anemia type: unspecified iron deficiency Qualified Code(s): D50.9 - Iron deficiency anemia, unspecified (7) GERD (gastroesophageal reflux disease) Status: Chronic Qualifiers: Esophagitis presence: esophagitis presence not specified Qualified Code(s): K21.9 - Gastro-esophageal reflux disease without esophagitis (8) HTN (hypertension) Status: Chronic Qualifiers: Hypertension type: primary hypertension Qualified Code(s): I10 - Essential (primary) hypertension (9) S/P TAVR (transcatheter aortic valve replacement) Status: Acute
[2023-07-20] MEDS ORDERED: HYDROGEN PEROXIDE 3% ONE (17:34)
[2023-07-20] MEDS: COUMADIN TAB 5 MG (JANTOVEN) PO SCH (21:15)
[2023-07-20] MEDS: K-DUR TAB 20 MEQ PO SCH (21:24)
[2023-07-20] MEDS: TYLENOL 325 MG TAB PO PRN (23:40)
[2023-07-21] MEDS: CORDARONE TAB 200 MG PO SCH (06:17)
[2023-07-21 06:25] LABS: BASOPHILS # (AUTO) 0.1 X10^3/uL (0.0-0.1); BASOPHILS % (AUTO) 0.9 % (0.2-1.0); EOSINOPHILS # (AUTO) 0.1 x10^3/uL (0.0-0.2); EOSINOPHILS % (AUTO) 2.1 % (0.9-2.9); HEMOGLOBIN 8.1 g/dL (12.0-16.0); LYMPHOCYTES # (AUTO) 0.7 X10^3/uL (1.3-2.9); LYMPHOCYTES % (AUTO) 10.1 % (21.0-51.0); MEAN CORPUSCULAR HEMOGLOBIN 30.9 pg (27.0-34.0); MEAN CORPUSCULAR HGB CONC 32.4 g/dL (33.0-35.0); MEAN CORPUSCULAR VOLUME 95.4 fL (80.0-100.0); MEAN PLATELET VOLUME 8.7 fL (7.4-11.0); MONOCYTES # (AUTO) 0.5 x10^3/uL (0.3-0.8); MONOCYTES % (AUTO) 7.8 % (0.0-13.0); NEUTROPHILS # (AUTO) 5.3 x10^3/uL (2.2-4.8); NEUTROPHILS % (AUTO) 79.1 % (42.0-75.0); PLATELET COUNT 148 X10^3/uL (150.0-450.0); RED BLOOD COUNT 2.63 X10^6/uL (3.5-5.4); RED CELL DISTRIBUTION WIDTH 15.3 % (11.6-16.5); WHITE BLOOD COUNT 6.6 X10^3/uL (3.6-10.0)
[2023-07-21 06:42] LABS: ALANINE AMINOTRANSFERASE 19 Units/L (12-78); ALBUMIN 2.6 g/dL (3.4-5.0); ALKALINE PHOSPHATASE 116 Units/L (46-116); ASPARTATE AMINO TRANSFERASE 23 Units/L (15-37); BLOOD UREA NITROGEN 46 mg/dL (7-18); CALCIUM 7.6 mg/dL (8.5-10.1); CARBON DIOXIDE 25.1 mmol/L (21-32); CHLORIDE 97 mmol/L (98-107); COR CA(FOR HYPOALB) 8.7 mg/dL (8.5-10.1); CREATININE 2.66 mg/dL (0.55-1.02); GLUCOSE 106 mg/dL (65-99); POTASSIUM 3.3 mmol/L (3.5-5.1); SODIUM 132 mmol/L (136-145); TOTAL PROTEIN 5.4 g/dL (6.4-8.2); eGFR NON BLACK RACES 18 (>60)
[2023-07-21 07:14] LABS: INR 1.42 (0.8-1.3)
[2023-07-21] MEDS ORDERED: PEPCID TAB 20 MG ONE (08:17)
[2023-07-21] MEDS: DUONEB 0.5 MG/3 MG (3 mL) NEB SCH ×3 (08:50→12:08)
[2023-07-21] MEDS: PULMICORT NEB TX 0.5 MG NEB SCH (08:50)
[2023-07-21] MEDS: ZYLOPRIM PO SCH (08:59)
[2023-07-21] MEDS: ROBITUSSIN DM PO SCH (08:59)
[2023-07-21] MEDS: HEMOCYTE-PLUS PO SCH (09:00)
[2023-07-21] MEDS: FERROUS GLUCONATE PO SCH (09:00)
[2023-07-21] MEDS: TOPROL XL PO SCH (09:00)
[2023-07-21] MEDS: APRESOLINE TAB 25 MG PO SCH (09:00)
[2023-07-21] MEDS: LASIX IVP SCH (09:00)
[2023-07-21] MEDS: ZOSYN VIAL 3.375 GRAMS 3.375 G in NS 100 ML IV 100 ML IV SCH (09:01)
[2023-07-21 09:19] VITALS: O2SAT 98
[2023-07-21] MEDS ORDERED: PEPCID TAB 20 MG PO SCH (10:00)
[2023-07-21] MEDS ORDERED: CONSULT PHARMACY - POTASSIUM & MAGNESIUM XX SCH (10:00)
[2023-07-21] MEDS ORDERED: K-DUR TAB 20 MEQ PO SCH (11:00)
--- NOTE | 2023-07-21 11:00 | RAD ---
EXAM:Portable AP chestHISTORY:Pneumonia short of breathCOMPARISON:July 20, 2023FINDINGS:Cardiomegaly is stable. Nonspecific interstitial disease is noted which may be chronic. The patient is rotated to the right, the cardiac and mediastinal structures obscuring the medial right lung and hilar complex. There is no evidence for developing consolidation or large pleural effusion.IMPRESSION:No definite interval change since previous studies. See above.THIS IS AN ELECTRONICALLY VERIFIED FINAL [id number]/21/2023 10:56 AM - Electronically signed by Kali Guevara MD
[2023-07-21 12:23] VITALS: BP 159/72; PULSE 78; RESP 20; TEMP 97.3
== END 2023-07-21 12:55 | disposition home health service (06) | DRG 291 ==
LOC: ER 10:05 → MED/SURG 13:59
PROVIDERS: ADMIT Family Medicine; ATTEND Internal Medicine
DX: I25.10 Atherosclerotic heart disease of native coronary artery without angina pectoris; J18.8 Other pneumonia, unspecified organism; K44.9 Diaphragmatic hernia without obstruction or gangrene; I48.0 Paroxysmal atrial fibrillation; D50.8 Other iron deficiency anemias; B95.3 Streptococcus pneumoniae as the cause of diseases classified elsewhere; J44.1 Chronic obstructive pulmonary disease with (acute) exacerbation; I11.0 Hypertensive heart disease with heart failure; I50.9 Heart failure, unspecified; Z66 Do not resuscitate; R06.02 Shortness of breath; K21.9 Gastro-esophageal reflux disease without esophagitis; Z95.2 Presence of prosthetic heart valve; R79.1 Abnormal coagulation profile; Z79.01 Long term (current) use of anticoagulants

== ENCOUNTER 2023-07-24 17:43 | Inpatient (IN) ==
--- NOTE | 2023-07-24 18:07 | DR.SOBA ---
HPI Time Seen Time Seen by Provider: 07/24/23 18:06 Primary Care Physician Primary Care Physician: ELLIOT Complaints Chief Complaint Doctors Comments: 82-year-old female presents for evaluation. Patient patient was discharged from hospital last week, admitted for fluid overload. She got out 3 days ago, has started feeling worse over the past 2 days. Having increased swelling of her lower extremities despite taking diuretic. Having increasing shortness of breath, worse with exertion. Patient has been unable to urinate well today, only going small amounts, having discomfort with dribbling of the urine. Having increasing pain and pressure of her lower abdomen. Denies any fevers, has had some chills. Has a moist cough. Chief Complaint:: PATIENT C/O SHORTNESS OF BREATH. PATIENT STATES SHE FEELS IF THE FLUID IS BULIDING UP ON HER AGAIN. PATIENT IS NOTED HAVE HOME O2 IN PLACE AT 3 LPM. PATIENT ALSO HAS BILATERAL LOWER EXT EDEMA +4 PITTING. PATIENT STATES SHE HAS BEEN TAKING HER WATER PILL BUT SHE HAS NOT BEEN ABLE TO URINATE. PATIENT STATES HER ABD FEELS IF IT IS GOING TO BURST. COVID-19 Coronavirus risk:travel/contact w/high risk person: No Has patient experienced Coronavirus symptoms: No Reviewed Nurses Notes Reviewed: Yes Source History Provided: Patient Mode of Arrival Mode of Arrival: Ambulatory Timing Onset of Chief Complaint: 07/23/23 PMH PMH Past Medical History: Yes Past Medical History: Anemia, Arthritis, CHF, Coronary Artery Disease, GERD, Hypertension and Sleep Apnea Past Surgical History: Yes Surgical History: Cholecystectomy, Hysterectomy and Other Past Surgical History Comment: AORTIC VALVE REPLACEMENT, EYE SURGERY Family History History of Family Medical Conditions: Yes Family Medical History: Cancer and OR Social History Does any household member use tobacco: No Alcohol Use: None Do you use any recreational Drugs:: No Lives With: Alone Lives Where: Home Travel Risk Coronavirus risk:travel/contact w/high risk person: No Has patient experienced Coronavirus symptoms: No Infectious screening In the last 2 months have you had wt loss of >10#?: NO Have you had fever, night sweats or hemotysis?: No Have you traveled outside the country in the last 6 months?: No Isolation: Standard ROS Review of Systems Constitutional: Weakness Eyes: No Symptoms Reported ENTM: No Symptoms Reported Respiratoy: Moist Cough and Short of Breath Cardiovascular: Edema Gastrointestinal/Abdominal: No Symptoms Reported Genitourinary: See HPI Neurological: Weakness Musculoskeletal: No Symptoms Reported Integumentary: No Symptoms Reported All Other Systems: Reviewed and Negative PE Vital Signs Vitals: Vital Signs Temperature 98.1 F Pulse Rate 58 Pulse Rate 59 Respiratory Rate 22 Blood Pressure 166/72 Blood Pressure 125/72 O2 Sat by Pulse Oximetry 97 O2 Sat by Pulse Oximetry 98 General General Appearance: Alert and In No Apparent Distress (on O2) Eyes Eye exam: PERRL and EOMI ENT ENT Exam: Normal Oropharynx and Mucous Membranes Moist Neck Neck Exam: Normal Inspection Respiratory Respiratory Exam: Normal Lung Sounds Bilat; negative Accessory Muscle Use or Respiratory Distress Cardiovascular Cardiovascular Exam: Regular Rate, Normal Rhythm and Normal Heart Sounds Abdominal Exam Abdominal Exam: Normal Bowel Sounds, Soft and Tenderness (suprapubic region, + enlarged bladder) Extremities Extremities Exam: Edema (pitting edema, bilateral lower extremities, 3-4+) Back Back Exam: Normal Inspection and Full ROM; negative Tenderness Neurologic Neurological Exam: Alert, Oriented X3 and CN II-XII Intact; negative Motor Sensory Deficit Skin Skin Exam: Warm and Dry COURSE Treatment Treatment: 82-year-old female recently discharged the hospital with fluid o verload, presents with increasing shortness of breath and increasing edema. Work-up initiated. Patient placed on oxygen. Crawford placed, as patient with difficulty urination. 300 milliliters out with Crawford placement, UA does not show obvious UTI. Chest x-ray shows cardiomegaly with pulmonary vascular congestion. Patient was given Lasix 40 mg IV. Labs show elevated BNP, elevated creatinine of 3, also has marked hyponatremia. Recommend admission for further treatment. Discussed with Dr. Laek, her physician. Accepts admission. Will give IV fluids while continuing diuretics. States patient recently pointed to the direction of hospice, he will pursue this further. ROR Labs Reviewed Laboratory Results Reviewed?: Yes 07/25/23 04:26 07/25/23 04:26 Laboratory: WBC 7.1 X10^3/uL (3.6-10.0) 07/24/23 18:16 RBC 3.03 X10^6/uL (3.5-5.4) L 07/24/23 18:16 Hgb 9.3 g/dL (12.0-16.0) L 07/24/23 18:16 Hct 28.4 % (36.0-47.0) L 07/24/23 18:16 MCV 93.7 fL (80.0-100.0) 07/24/23 18:16 MCH 30.6 pg (27.0-34.0) 07/24/23 18:16 MCHC 32.7 g/dL (33.0-35.0) L 07/24/23 18:16 RDW 15.1 % (11.6-16.5) 07/24/23 18:16 Plt Count 205 X10^3/uL (150.0-450.0) 07/24/23 18:16 MPV 8.3 fL (7.4-11.0) 07/24/23 18:16 Neut % (Auto) 73.3 % (42.0-75.0) 07/24/23 18:16 Lymph % (Auto) 13.1 % (21.0-51.0) L 07/24/23 18:16 [place] % (Auto) 10.1 % (0.0-13.0) 07/24/23 18:16 Eos % (Auto) 2.7 % (0.9-2.9) 07/24/23 18:16 Baso % (Auto) 0.8 % (0.2-1.0) 07/24/23 18:16 Neut # (Auto) 5.2 x10^3/uL (2.2-4.8) H 07/24/23 18:16 Lymph # (Auto) 0.9 X10^3/uL (1.3-2.9) L 07/24/23 18:16 [place] # (Auto) 0.7 x10^3/uL (0.3-0.8) 07/24/23 18:16 Eos # (Auto) 0.2 x10^3/uL (0.0-0.2) 07/24/23 18:16 Baso # (Auto) 0.1 X10^3/uL (0.0-0.1) 07/24/23 18:16 Absolute Nucleated RBC 0.1 /100WBC 07/24/23 18:16 PT 16.6 SECONDS (11.8-14.3) 07/24/23 18:16 INR Target Range - 07/24/23 18:16 INR 1.37 (0.8-1.3) H 07/24/23 18:16 Sodium 121 mmol/L (136-145) L* 07/24/23 18:16 Corrected Sodium TNP 07/24/23 18:16 Potassium 3.6 mmol/L (3.5-5.1) 07/24/23 18:16 Chloride 88 mmol/L (98-107) L 07/24/23 18:16 Carbon Dioxide 24.5 mmol/L (21-32) 07/24/23 18:16 BUN 54 mg/dL (7-18) H 07/24/23 18:16 Creatinine 3.01 mg/dL (0.55-1.02) H 07/24/23 18:16 Est GFR (MDRD) Af Amer 19 (>60) L 07/24/23 18:16 Est GFR (MDRD) Non-Af 16 (>60) L 07/24/23 18:16 Glucose 103 mg/dL (65-99) H 07/24/23 18:16 Calcium 8.0 mg/dL (8.5-10.1) L 07/24/23 18:16 Corrected Calcium 8.6 mg/dL (8.5-10.1) 07/24/23 18:16 Magnesium 2.2 mg/dL (2.0-2.9) 07/24/23 18:16 Total Bilirubin 0.40 mg/dL (0.2-1.0) 07/24/23 18:16 AST 26 Units/L (15-37) 07/24/23 18:16 ALT 25 Units/L (12-78) 07/24/23 18:16 Alkaline Phosphatase 132 Units/L (46-116) H 07/24/23 18:16 Troponin I High Sens 20.8 ng/L (4.0-60.0) 07/24/23 18:16 B-Natriuretic Peptide 1200 pg/mL (0-79) H 07/24/23 18:16 Total Protein 6.3 g/dL (6.4-8.2) L 07/24/23 18:16 Albumin 3.2 g/dL (3.4-5.0) L 07/24/23 18:16 Globulin 3.1 g/dL (2.5-4.5) 07/24/23 18:16 Albumin/Globulin Ratio 1.0 Ratio (1.1-2.1) L 07/24/23 18:16 Specimen Type Catherized urine 07/24/23 18:32 Urine Color Yellow (YELLOW) 07/24/23 18:32 Urine Appearance Clear (CLEAR) 07/24/23 18:32 Urine pH 5.0 (5.0 - 8.0) 07/24/23 18:32 Ur Specific [place] 1.020 (1.000-1.030) 07/24/23 18:32 Urine Protein 1+ (NEGATIVE) 07/24/23 18:32 Urine Glucose (UA) Negative (NEGATIVE) 07/24/23 18:32 Urine Ketones Negative (NEGATIVE) 07/24/23 18:32 Urine Blood Negative (NEGATIVE) 07/24/23 18:32 Urine Nitrite Negative (NEGATIVE) 07/24/23 18:32 Urine Bilirubin Negative (NEGATIVE) 07/24/23 18:32 Urine Urobilinogen Normal (NORMAL) 07/24/23 18:32 Ur Leukocyte Esterase Negative (NEGATIVE) 07/24/23 18:32 Urine RBC None seen /HPF (0-3) 07/24/23 18:32 Urine WBC None seen /HPF (0-5) 07/24/23 18:32 Ur Squamous Epith Cells Rare /HPF (NEGATIVE) 07/24/23 18:32 Urine Bacteria Negative /HPF (NEGATIVE) 07/24/23 18:32 Ur Culture Indicated? Yes/culture set up 07/24/23 18:32 Sodium 121. EKG Rate: 60 [place]: Normal Rhythm: NSR Block: LBBB ST: Nonsp Opioid Opioid Risk Tool Age (Demar box if 16-45): No History of Preadolescent Sexual Abuse: No Total: 0 Total Score Risk Category: Low Risk Copyright: Gavin BROWNLEE predicting aberrant behaviors Discharge Plan Diagnosis Discharge Problem: Acute hyponatremia, CHF exacerbation, Acute urinary retention Discharge Plan Patient Disposition: ADMITTED INPATIENT Condition: Stable
--- NOTE | 2023-07-24 18:24 | EKG ---
Test Reason : shortness of breath Blood Pressure : */* mmHG Vent. Rate : 60 BPM Atrial Rate : * BPM P-R Int : * ms QRS Dur : 172 ms QT Int : 538 ms P-R-T Axes : * 2 149 degrees QTc Int : 538 ms Normal sinus rhythm Left bundle branch block Abnormal ECG When compared with ECG of 19-JUL-2023 06:08, Wide QRS rhythm has replaced Atrial fibrillation Confirmed by Shamar Bray ([id number]) on 07/25/2023 8:14:13 AM Referred By: Confirmed By: Shamar Bray
[2023-07-24 18:29] LABS: BASOPHILS # (AUTO) 0.1 X10^3/uL (0.0-0.1); BASOPHILS % (AUTO) 0.8 % (0.2-1.0); EOSINOPHILS # (AUTO) 0.2 x10^3/uL (0.0-0.2); EOSINOPHILS % (AUTO) 2.7 % (0.9-2.9); HEMATOCRIT 28.4 % (36.0-47.0); HEMOGLOBIN 9.3 g/dL (12.0-16.0); LYMPHOCYTES # (AUTO) 0.9 X10^3/uL (1.3-2.9); LYMPHOCYTES % (AUTO) 13.1 % (21.0-51.0); MEAN CORPUSCULAR HEMOGLOBIN 30.6 pg (27.0-34.0); MEAN CORPUSCULAR HGB CONC 32.7 g/dL (33.0-35.0); MEAN CORPUSCULAR VOLUME 93.7 fL (80.0-100.0); MEAN PLATELET VOLUME 8.3 fL (7.4-11.0); MONOCYTES # (AUTO) 0.7 x10^3/uL (0.3-0.8); MONOCYTES % (AUTO) 10.1 % (0.0-13.0); NEUTROPHILS # (AUTO) 5.2 x10^3/uL (2.2-4.8); NEUTROPHILS % (AUTO) 73.3 % (42.0-75.0); PLATELET COUNT 205 X10^3/uL (150.0-450.0); RED BLOOD COUNT 3.03 X10^6/uL (3.5-5.4); RED CELL DISTRIBUTION WIDTH 15.1 % (11.6-16.5); WHITE BLOOD COUNT 7.1 X10^3/uL (3.6-10.0)
[2023-07-24 18:32] LABS: INR 1.37 (0.8-1.3)
[2023-07-24 18:39] LABS: ALANINE AMINOTRANSFERASE 25 Units/L (12-78); ALBUMIN 3.2 g/dL (3.4-5.0); ALKALINE PHOSPHATASE 132 Units/L (46-116); ASPARTATE AMINO TRANSFERASE 26 Units/L (15-37); BLOOD UREA NITROGEN 54 mg/dL (7-18); CARBON DIOXIDE 24.5 mmol/L (21-32); CHLORIDE 88 mmol/L (98-107); COR CA(FOR HYPOALB) 8.6 mg/dL (8.5-10.1); CREATININE 3.01 mg/dL (0.55-1.02); GLUCOSE 103 mg/dL (65-99); POTASSIUM 3.6 mmol/L (3.5-5.1); TOTAL PROTEIN 6.3 g/dL (6.4-8.2); eGFR NON BLACK RACES 16 (>60)
[2023-07-24 18:47] LABS: SODIUM 121 mmol/L (136-145)
--- NOTE | 2023-07-24 18:47 | RAD ---
EXAM:CHEST, 1 VIEWHISTORY:SOB; KIDNEY PROBLEMS, PNEUMONIACOMPARISON:July 21 2023.TECHNIQUE:Frontal and lateral views of the chest were obtained.FINDINGS:There is cardiomegaly. There is pulmonary edema. There is no pneumothorax. The osseous structures are intact. There is a total left shoulder arthroplasty in-situ.IMPRESSION:Cardiomegaly with pulmonary edema.THIS IS AN ELECTRONICALLY VERIFIED FINAL [id number]/24/2023 6:43 PM - Electronically signed by Gloria Rodriguez MD
[2023-07-24 18:54] LABS: BILIRUBIN,URINE NEGATIVE (NEGATIVE); BLOOD/HEMOGLOBIN,URINE NEGATIVE (NEGATIVE); GLUCOSE, URINE NEGATIVE (NEGATIVE); KETONES,URINE NEGATIVE (NEGATIVE); LEUKOCYTE ESTERASE ,URINE NEGATIVE (NEGATIVE); NITRITES,URINE NEGATIVE (NEGATIVE); PROTEIN,URINE 1+ (NEGATIVE); UROBILINOGEN,URINE NORMAL (NORMAL)
[2023-07-24 19:01] LABS: APPEARANCE,URINE CLEAR (CLEAR); BACTERIA,URINE NEGATIVE /HPF (NEGATIVE); COLOR,URINE YELLOW (YELLOW); RBC,URINE NONE SEEN /HPF (0-3); SQUAMOUS EPITHELIAL CELL,UR RARE /HPF (NEGATIVE)
[2023-07-24] MEDS ORDERED: LASIX IVP ONE ×2 (19:47→19:58)
[2023-07-24] MEDS ORDERED: CONSULT PHARMACY - POTASSIUM & MAGNESIUM XX SCH (20:00)
[2023-07-24] MEDS ORDERED: PROVENTIL NEB TX 0.083% 2.5MG/ 3ML ONE (20:36)
[2023-07-24] MEDS: PROVENTIL NEB TX 0.083% 2.5MG/ 3ML NEB SCH (21:00)
[2023-07-24] MEDS: NS 500 ML IV 500 ML IV SCH (21:03)
[2023-07-24] MEDS ORDERED: MICRO K EXTEN CAP 10 MEQ PO ONE (23:00)
[2023-07-24] MEDS ORDERED: K-DUR TAB 20 MEQ PO ONE (23:00)
[2023-07-24] MEDS: TYLENOL 325 MG TAB PO PRN (23:15)
[2023-07-25] MEDS: NS 500 ML IV 500 ML IV SCH ×2 (03:04→18:51)
[2023-07-25 05:30] LABS: BASOPHILS # (AUTO) 0.1 X10^3/uL (0.0-0.1); EOSINOPHILS # (AUTO) 0.2 x10^3/uL (0.0-0.2); EOSINOPHILS % (AUTO) 3.4 % (0.9-2.9); HEMATOCRIT 25.1 % (36.0-47.0); HEMOGLOBIN 8.2 g/dL (12.0-16.0); LYMPHOCYTES % (AUTO) 18.1 % (21.0-51.0); MEAN CORPUSCULAR HEMOGLOBIN 30.9 pg (27.0-34.0); MEAN CORPUSCULAR HGB CONC 32.9 g/dL (33.0-35.0); MEAN CORPUSCULAR VOLUME 94.2 fL (80.0-100.0); MEAN PLATELET VOLUME 9.1 fL (7.4-11.0); MONOCYTES # (AUTO) 0.7 x10^3/uL (0.3-0.8); MONOCYTES % (AUTO) 12.3 % (0.0-13.0); NEUTROPHILS # (AUTO) 3.7 x10^3/uL (2.2-4.8); NEUTROPHILS % (AUTO) 65.2 % (42.0-75.0); PLATELET COUNT 164 X10^3/uL (150.0-450.0); RED BLOOD COUNT 2.67 X10^6/uL (3.5-5.4); RED CELL DISTRIBUTION WIDTH 14.9 % (11.6-16.5); WHITE BLOOD COUNT 5.7 X10^3/uL (3.6-10.0)
[2023-07-25 05:42] LABS: ALANINE AMINOTRANSFERASE 21 Units/L (12-78); ALBUMIN 2.7 g/dL (3.4-5.0); ALKALINE PHOSPHATASE 111 Units/L (46-116); ASPARTATE AMINO TRANSFERASE 26 Units/L (15-37); BLOOD UREA NITROGEN 53 mg/dL (7-18); CALCIUM 7.8 mg/dL (8.5-10.1); CARBON DIOXIDE 24.1 mmol/L (21-32); CHLORIDE 91 mmol/L (98-107); COR CA(FOR HYPOALB) 8.8 mg/dL (8.5-10.1); CREATININE 3.01 mg/dL (0.55-1.02); GLUCOSE 84 mg/dL (65-99); POTASSIUM 3.4 mmol/L (3.5-5.1); TOTAL PROTEIN 5.3 g/dL (6.4-8.2); eGFR NON BLACK RACES 16 (>60)
[2023-07-25] MEDS: CARAFATE PO SCH ×4 (05:47→20:24)
[2023-07-25] MEDS: SYNTHROID 25 mcg TAB PO SCH (05:47)
[2023-07-25 05:48] LABS: SODIUM 124 mmol/L (136-145)
[2023-07-25] MEDS: PROVENTIL NEB TX 0.083% 2.5MG/ 3ML NEB SCH ×3 (06:14→20:48)
[2023-07-25] MEDS ORDERED: CONSULT PHARMACY - POTASSIUM & MAGNESIUM XX SCH (07:00)
[2023-07-25] MEDS ORDERED: MICRO K EXTEN CAP 10 MEQ PO SCH (09:00)
[2023-07-25] MEDS: LASIX IVP SCH ×2 (10:05→16:30)
[2023-07-25] MEDS: APRESOLINE TAB 25 MG PO SCH ×2 (10:05→20:25)
[2023-07-25] MEDS: PLAVIX PO SCH (10:05)
[2023-07-25] MEDS: CORDARONE TAB 200 MG PO SCH ×2 (10:05→20:30)
[2023-07-25] MEDS: TOPROL XL PO SCH (10:05)
[2023-07-25] MEDS: ZYLOPRIM PO SCH (10:05)
[2023-07-25] MEDS: NS 1,000 ML IV 1,000 ML IV SCH ×2 (12:34→23:00)
--- NOTE | 2023-07-25 12:43 | DR.UPDATE ---
H&P Update Prescription drug monitoring program results: PDMP reviewed with concerns identified H&P Reviewed: Yes Any changes to H&P?: Yes Changes noted:: IS A 82 YEAR OLD PATIENT OF OURS. SHE HAS A PMH OF CAD, CHF, HTN, GERD, COPD. 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 SHE WAS RECENTLY HOSPITALIZED FROM 07/13/23 UNTIL 07/21/23 FOR TREATMENT OF CHF EXACERBATION, COPD EXACERBATION, BILATERAL PNEUMONIA, ATRIAL FIBRILLATION, ANEMIA. SHE WAS DISCHARGED HOME ON AMIODARONE 200MG BID, LASIX 40MG BID PRN, METOPROLOL 50MG DAILY, WARFARIN 5MG DAILY, ALBUTEROL NEBS TID, CIPRO 750MG BID. SHE RETURNED TO THE ER WITH COMPLAINTS OF WORSENING SHORTNESS OF BREATH, INCREASING LOWER EXTREMITY EDEMA, AND PAIN AND PRESSURE OF THE LOWER ABDOMEN. PATIENT REPORTS THAT SHE HAS BEEN UNABLE TO URINATE TODAY. SHE WAS NOTED TO HAVE 4+ PITTING EDEMA OF BILATERAL LOWER EXTREMITIES ON ARRIVAL. SHE WAS NOTED TO HAVE LABORED BREATHING AND COUGH. PATIENT DOES ADMIT TO HAVING HOME OXYGEN THAT SHE WEARS AT 3 LPM. ON ARRIVAL TO THE HOSPITAL, HER VITALS WERE: 98.1-59-22-98%-125/72. LABS WERE OBTAINED. WBC 7.1, RBC 3.03, HGB 9.3, HCT 28.4, PLT COUNT 205, INR 1.37, SODIUM 121, POTASSIUM 3.6, CHLORIDE 88, BUN 54, CREATININE 3.01, GLUCOSE 103, CALCIUM 8.0, TOTAL BILI 0.40, AST 26, ALT 25, ALK PHOS 132, TROPONIN 20.8, BNP 1200, TOTAL PROTEIN 6.3, ALBUMIN 3.2, MAGNESIUM 2.2. A URINALSYIS WAS OBTAINED AND WAS UNREMARKABLE. A URINE CULTURE WAS SET UP. CHEST XRAY WAS OBTAINED AND REVEALED CARDIOMEGALY WITH PULMONARY EDEMA. EKG REVEALED NORMAL SINUS RHYTHM WITH HR 60 BPM. IN THE ER, SHE WAS GIVEN LASIX 40MG IV X 1 AND POTASSIUM CHLORIDE 10MEQ PO X 1. SHE WAS ADMITTED TO THE HOSPITAL OBSERVATION STATUS FOR FURTHER EVALUATION AND TREATMENT OF ACUTE HYPONATREMIA, CHF EXACERBATION, ACUTE ON CHRONIC RENAL FAILURE, ABDOMINAL PAIN. SHE WAS STARTED ON NORMAL SALINE AT 85 ML/HR, LASIX 20MG IV BID, ALBUTEROL NEBS TID. HER HOME MEDICATIONS OF ZYLOPRIM, AMIODARONE, PLAVIX, PEPCID, APRESOLINE, SYNTHROID, TOPROL XL, CARAFATE, AND COUMADIN WERE RESUMED. WE WILL OBTAIN A CHEST AND ABDOMEN/PELVIS CTs WITHOUT CONTRAST. OTHERWISE, WE WILL FOLLOW UP WITH AM LABS AND CONTINUE TO MONITOR. TIME SPENT ON CLINICAL ASSESSMENT, REVIEWING LABS AND IMAGING, DECISION MAKING, AND DOCUMENTATION GREATER THAN 75 MINUTES. Patient was examined?: Yes Vital Signs: Temp Pulse Resp BP Pulse Ox O2 Del Method O2 Flow Rate 07/25/23 12:15 98.1 F 58 L 24 100 07/25/23 12:00 60 26 H 99 07/25/23 11:45 59 L 25 H 99 07/25/23 11:30 53 L 15 07/25/23 11:15 59 L 25 H 07/25/23 11:00 60 26 H 99 07/25/23 10:45 58 L 22 97 07/25/23 10:30 58 L 26 H 98 07/25/23 10:15 56 L 18 98 07/25/23 10:01 54 L 16 99 07/25/23 10:01 152/71 07/25/23 10:00 55 L 16 99 07/25/23 09:45 53 L 15 100 07/25/23 09:30 64 42 H 97 07/25/23 09:15 58 L 27 H 98 07/25/23 09:01 58 L 24 96 07/25/23 09:01 159/70 07/25/23 09:00 56 L 21 97 07/25/23 08:45 56 L 25 H 97 07/25/23 09:32 Nasal Cannula 2 07/25/23 08:31 58 L 25 H 97 07/25/23 08:15 58 L 22 96 07/25/23 08:01 61 35 H 97 07/25/23 08:01 148/67 07/25/23 08:00 97.9 F 61 28 H 97 07/25/23 07:45 64 32 H 96 07/25/23 07:30 53 L 14 98 07/25/23 07:15 58 L 22 97 07/25/23 07:00 57 L 19 98 07/25/23 07:00 57 L 19 172/72 98 07/25/23 06:59 57 L 19 98 07/25/23 06:45 53 L 15 97 07/25/23 06:30 59 L 17 97 07/25/23 06:15 56 L 18 100 07/25/23 06:01 54 L 14 97 07/25/23 06:01 166/72 07/25/23 06:00 53 L 14 97 07/25/23 05:45 67 91 L 07/25/23 05:30 61 22 97 07/25/23 05:15 62 23 97 07/25/23 05:00 133/60 07/25/23 05:00 60 35 H 96 07/25/23 04:45 59 L 29 H 96 07/25/23 04:31 58 L 35 H 97 07/25/23 04:15 53 L 16 96 07/25/23 04:00 148/65 07/25/23 04:00 54 L 19 96 07/25/23 03:45 53 L 19 97 07/25/23 03:30 57 L 24 98 07/25/23 03:15 55 L 19 98 07/25/23 03:00 59 L 24 98 07/25/23 03:00 146/67 07/25/23 02:45 54 L 17 97 07/25/23 02:30 53 L 16 98 07/25/23 02:15 54 L 21 98 07/25/23 02:01 125/58 07/25/23 02:01 52 L 27 H 98 07/25/23 02:00 52 L 20 98 07/25/23 01:45 49 L 33 H 97 07/25/23 01:30 54 L 19 100 07/25/23 01:15 50 L 29 H 96 07/25/23 01:00 50 L 15 98 07/25/23 01:00 132/60 07/25/23 00:45 50 L 16 97 07/25/23 00:30 52 L 15 92 L 07/25/23 00:15 54 L 15 98 07/25/23 00:00 53 L 17 96 07/25/23 00:00 124/57 07/24/23 23:45 60 22 98 07/24/23 23:30 60 23 97 07/24/23 23:16 60 24 98 07/24/23 23:01 122/58 07/24/23 23:01 62 23 95 07/24/23 23:00 62 17 97 07/24/23 22:45 60 24 97 07/24/23 22:30 59 L 22 97 07/24/23 22:15 56 L 17 99 07/25/23 06:58 Nasal Cannula 3 07/25/23 06:15 80 98 07/25/23 06:00 54 L 23 166/72 94 L CPAP 2 07/25/23 05:00 57 L 26 H 133/60 95 CPAP 2 07/25/23 04:00 98.1 F 54 L 16 148/65 97 CPAP 2 07/25/23 03:00 57 L 22 146/67 98 CPAP 2 07/25/23 02:00 53 L 22 125/58 98 CPAP 2 07/25/23 01:00 50 L 18 132/60 96 Nasal Cannula 2 07/25/23 00:15 15 07/25/23 00:00 97.6 F 54 L 14 124/57 96 Nasal Cannula 2 07/24/23 23:57 Nasal Cannula 2 07/24/23 23:00 60 20 122/58 97 Nasal Cannula 2 07/24/23 23:15 20 07/24/23 22:01 145/65 07/24/23 22:01 57 L 16 97 07/24/23 22:00 97.6 F 56 L 16 97 07/24/23 21:45 55 L 15 97 07/24/23 21:30 60 22 96 07/24/23 21:15 57 L 16 95 07/24/23 21:00 59 L 25 H 100 07/24/23 21:00 134/62 07/24/23 20:54 58 L 23 100 07/24/23 21:00 58 L 97 07/24/23 21:00 Nasal Cannula 2 07/24/23 20:35 Nasal Cannula 3 07/24/23 20:15 58 L 98 07/24/23 20:01 160/67 07/24/23 20:01 160/67 07/24/23 20:01 160/67 07/24/23 20:01 60 98 07/24/23 20:00 55 L 98 07/24/23 19:45 58 L 98 07/24/23 19:35 152/70 07/24/23 19:35 60 98 07/24/23 19:34 60 98 07/24/23 18:05 59 L 97 07/24/23 18:04 166/72 07/24/23 18:06 58 L 166/72 97 Nasal Cannula 2 07/24/23 17:44 98.1 F 59 L 22 125/72 98 Nasal Cannula FiO2 07/25/23 12:15 07/25/23 12:00 07/25/23 11:45 07/25/23 11:30 07/25/23 11:15 07/25/23 11:00 07/25/23 10:45 07/25/23 10:30 07/25/23 10:15 07/25/23 10:01 07/25/23 10:01 07/25/23 10:00 07/25/23 09:45 07/25/23 09:30 07/25/23 09:15 07/25/23 09:01 07/25/23 09:01 07/25/23 09:00 07/25/23 08:45 07/25/23 09:32 28 07/25/23 08:31 07/25/23 08:15 07/25/23 08:01 07/25/23 08:01 07/25/23 08:00 07/25/23 07:45 07/25/23 07:30 07/25/23 07:15 07/25/23 07:00 07/25/23 07:00 07/25/23 06:59 07/25/23 06:45 07/25/23 06:30 07/25/23 06:15 07/25/23 06:01 07/25/23 06:01 07/25/23 06:00 07/25/23 05:45 07/25/23 05:30 07/25/23 05:15 07/25/23 05:00 07/25/23 05:00 07/25/23 04:45 07/25/23 04:31 07/25/23 04:15 07/25/23 04:00 07/25/23 04:00 07/25/23 03:45 07/25/23 03:30 07/25/23 03:15 07/25/23 03:00 07/25/23 03:00 07/25/23 02:45 07/25/23 02:30 07/25/23 02:15 07/25/23 02:01 07/25/23 02:01 07/25/23 02:00 07/25/23 01:45 07/25/23 01:30 07/25/23 01:15 07/25/23 01:00 07/25/23 01:00 07/25/23 00:45 07/25/23 00:30 07/25/23 00:15 07/25/23 00:00 07/25/23 00:00 07/24/23 23:45 07/24/23 23:30 07/24/23 23:16 07/24/23 23:01 07/24/23 23:01 07/24/23 23:00 07/24/23 22:45 07/24/23 22:30 07/24/23 22:15 07/25/23 06:58 07/25/23 06:15 07/25/23 06:00 07/25/23 05:00 07/25/23 04:00 07/25/23 03:00 07/25/23 02:00 07/25/23 01:00 07/25/23 00:15 07/25/23 00:00 07/24/23 23:57 28 07/24/23 23:00 07/24/23 23:15 07/24/23 22:01 07/24/23 22:01 07/24/23 22:00 07/24/23 21:45 07/24/23 21:30 07/24/23 21:15 07/24/23 21:00 07/24/23 21:00 07/24/23 20:54 07/24/23 21:00 07/24/23 21:00 28 07/24/23 20:35 07/24/23 20:15 07/24/23 20:01 07/24/23 20:01 07/24/23 20:01 07/24/23 20:01 07/24/23 20:00 07/24/23 19:45 07/24/23 19:35 07/24/23 19:35 07/24/23 19:34 07/24/23 18:05 07/24/23 18:04 07/24/23 18:06 07/24/23 17:44
[2023-07-25 15:47] VITALS: BMI 36.6
--- NOTE | 2023-07-25 18:43 | CT ---
EXAM:CHEST W/O CONHISTORY:SOB, HYPOXIA;COMPARISON:Chest CT 04/01/2021TECHNIQUE:Multiple CT axial images of the chest were obtained without IV contrast. Coronal and sagittal images were reconstructed. Dose reduction techniques included Automated Exposure Control (AEC) and adjustment of mA and kV.FINDINGS:Cardiomegaly is present. This is larger than in 202.There is a prosthetic aortic valve. The pulmonary artery and aorta have a normal caliber. No mediastinal mass or significant lymphadenopathy.The thyroid has a normal size and configuration. No axillary mass or significant axillary lymphadenopathy is identified.Small bilateral pleural effusions are new since the prior study. Airspace opacity in the dependent lungs is mostly associated with the effusions. This is probably atelectasis. But there is a triangular area of opacity in the right lower lobe which could be pneumonia.Large hiatal hernia measures about 13 cm.Degenerative changes are present in the spine. Senescent kyphosis is present. Left shoulder prosthesis. Moderate scoliosis.IMPRESSION:1. Possible right lower lobe pneumonia2. Bilateral effusions with atelectasis3. Increased cardiomegaly4. Large hiatal herniaTHIS IS AN ELECTRONICALLY VERIFIED FINAL [id number]/2023 6:39 PM - Electronically signed by Blair Stakr MD
--- NOTE | 2023-07-25 19:20 | CT ---
EXAM:ABDOMEN/PELVIS W/O CONHISTORY:ABDOMINAL PAIN; ACUTE HYPONATREMIA, CHF EXACERBATIONCOMPARISON:CT abdomen and pelvis 04/01/2021TECHNIQUE:Multiple CT axial images of the abdomen and pelvis were obtained without IV contrast. Coronal and sagittal images were reconstructed. Dose reduction techniques included Automated Exposure Control (AEC) and adjustment of mA and kV.FINDINGS:See chest CT report same day for additional findings.The liver is normal in size and configuration. Surgical clips are present in the gallbladder fossa from a cholecystectomy. The spleen is normal in size and shape.Left adrenal gland normal. I do not identify the right adrenal gland. The pancreas is normal.No abnormal calcifications are present in the kidneys, ureters, or urinary bladder. The kidneys have normal size and shape. There is no hydronephrosis or significant perirenal edema. Urinary bladder is contracted around a Crawford balloon catheter.Large hiatal hernia. The bowel is not dilated. There is no wall thickening in the bowel or edema around the bowel. A normal appendix is not identified. But there is no inflammation around the cecum or at the expected location of the appendix. There are a few isolated diverticula in the sigmoid colon. But there is no wall thickening or pericolonic edema to suggest acute diverticulitis.The patient has anasarca with generalized edema. This is manifested as increased density in the subcutaneous fat. This has increased since the prior study.Degenerative changes are present in the spine. Bones are demineralized.IMPRESSION:1. Increased anasarca2. Otherwise no acute findingsTHIS IS AN ELECTRONICALLY VERIFIED FINAL [id number]/2023 7:17 PM - Electronically signed by Blair Stark MD
[2023-07-25] MEDS ORDERED: MILK OF MAGNESIA PO PRN (19:24)
[2023-07-25] MEDS: COLACE CAP 100 MG PO PRN (20:24)
[2023-07-25] MEDS: TYLENOL 325 MG TAB PO PRN (20:25)
[2023-07-25] MEDS: COUMADIN TAB 5 MG (JANTOVEN) PO SCH (20:28)
[2023-07-25] MEDS: RESTORIL CAP 15 MG PO PRN (23:20)
[2023-07-26 05:33] LABS: BASOPHILS # (AUTO) 0.1 X10^3/uL (0.0-0.1); BASOPHILS % (AUTO) 1.2 % (0.2-1.0); EOSINOPHILS # (AUTO) 0.2 x10^3/uL (0.0-0.2); EOSINOPHILS % (AUTO) 3.4 % (0.9-2.9); HEMATOCRIT 25.4 % (36.0-47.0); HEMOGLOBIN 8.4 g/dL (12.0-16.0); LYMPHOCYTES # (AUTO) 0.9 X10^3/uL (1.3-2.9); MEAN CORPUSCULAR HGB CONC 33.2 g/dL (33.0-35.0); MEAN CORPUSCULAR VOLUME 93.4 fL (80.0-100.0); MEAN PLATELET VOLUME 8.6 fL (7.4-11.0); MONOCYTES # (AUTO) 0.7 x10^3/uL (0.3-0.8); MONOCYTES % (AUTO) 12.1 % (0.0-13.0); NEUTROPHILS # (AUTO) 3.9 x10^3/uL (2.2-4.8); NEUTROPHILS % (AUTO) 68.3 % (42.0-75.0); PLATELET COUNT 169 X10^3/uL (150.0-450.0); RED BLOOD COUNT 2.72 X10^6/uL (3.5-5.4); RED CELL DISTRIBUTION WIDTH 15.1 % (11.6-16.5); WHITE BLOOD COUNT 5.8 X10^3/uL (3.6-10.0)
[2023-07-26] MEDS: CARAFATE PO SCH ×4 (05:38→21:09)
[2023-07-26] MEDS: SYNTHROID 25 mcg TAB PO SCH (05:38)
[2023-07-26 05:48] LABS: ALANINE AMINOTRANSFERASE 21 Units/L (12-78); ALBUMIN 2.7 g/dL (3.4-5.0); ALKALINE PHOSPHATASE 111 Units/L (46-116); ASPARTATE AMINO TRANSFERASE 24 Units/L (15-37); BLOOD UREA NITROGEN 53 mg/dL (7-18); CALCIUM 7.9 mg/dL (8.5-10.1); CARBON DIOXIDE 25.2 mmol/L (21-32); CHLORIDE 95 mmol/L (98-107); COR CA(FOR HYPOALB) 8.9 mg/dL (8.5-10.1); CREATININE 2.78 mg/dL (0.55-1.02); GLUCOSE 101 mg/dL (65-99); POTASSIUM 3.3 mmol/L (3.5-5.1); SODIUM 127 mmol/L (136-145); TOTAL PROTEIN 5.3 g/dL (6.4-8.2); eGFR NON BLACK RACES 17 (>60)
--- NOTE | 2023-07-26 06:28 | RAD ---
EXAM:CHEST, 1 VIEWHISTORY:COPD EXACERBATION, SOB ;COMPARISON:07/24/2023.TECHNIQUE:AP view of the chestFINDINGS:Left shoulder arthroplasty noted. Aortic valve prosthesis noted. The cardiac silhouette is stably enlarged. Known large hiatal hernia. Blunted costophrenic sulci with associated bibasilar opacities appears similar. There are new linear opacities in the pulmonary periphery. No pneumothorax.IMPRESSION:Small pleural effusions with associated opacities likely atelectasis. Linear opacities in the pulmonary periphery suggests mild pulmonary edema.THIS IS AN ELECTRONICALLY VERIFIED FINAL [id number]/26/2023 6:25 AM - Electronically signed by Roberto Mcfarlane MD
[2023-07-26] MEDS: PROVENTIL NEB TX 0.083% 2.5MG/ 3ML NEB SCH ×3 (06:40→21:15)
[2023-07-26] MEDS ORDERED: CONSULT PHARMACY - POTASSIUM & MAGNESIUM XX SCH ×2 (07:00)
[2023-07-26] MEDS ORDERED: K-DUR TAB 20 MEQ PO SCH (09:00)
[2023-07-26] MEDS: PEPCID TAB 20 MG PO SCH (09:31)
[2023-07-26] MEDS: TOPROL XL PO SCH (09:31)
[2023-07-26] MEDS: ZYLOPRIM PO SCH (09:31)
[2023-07-26] MEDS: CORDARONE TAB 200 MG PO SCH ×2 (09:31→21:09)
[2023-07-26] MEDS: PLAVIX PO SCH (09:31)
[2023-07-26] MEDS: LASIX IVP SCH ×2 (09:31→16:47)
[2023-07-26] MEDS: APRESOLINE TAB 25 MG PO SCH ×2 (09:31→21:09)
[2023-07-26] MEDS: NS 1,000 ML IV 1,000 ML IV SCH ×2 (11:15→22:27)
--- NOTE | 2023-07-26 18:14 | PCM.PROG ---
Progress Note Progress Note for Day of Date of Exam: 07/26/23 Subjective Subjective: PT IS 82 WF, PATIENT OF DR MCCOY, CURRENTLY BEING TREATED FOR PNEUMONIA, ACUTE ON CHRONIC KIDNEY DISEASE, HYPONATREMIA AND CHF. PT IS ON GENTLE IV HYDRATION AND STRICT I&OS. PTS SODIUM WAS IMPROVED TO 127 THIS MORNING, K 3.3, CREAT 2.78. PT CO BILATERAL LOWER EXTREMITY PAIN AND SWELLING. P T HAS DIFFUSE LLE REDNESS WITHOUT BLISTER FORMATION. PT CO INCREASED "GAS" IN HER CHEST WITH FREQUENT BURPING AND BELCHING. PT HAD A CT OF ABD/PELVIS REVEALING A LARGE HIATAL HERNIA. PT STARTED ON IV PROTONIX BID AND KEEP HOB AT 45. Past Medical Family Social History Allergies: Allergies cephalexin [From Keflex] Allergy (Verified 07/24/23 18:08) nitrofurantoin [From Macrobid] Allergy (Verified 07/24/23 18:08) Sulfa (Sulfonamide Antibiotics) Allergy (Verified 07/24/23 18:08) Vital Signs and I&O's Vital Signs: Vital Signs Temperature 97.3 F Temperature 97.8 F Pulse Rate 55 Pulse Rate 57 Pulse Rate 60 Pulse Rate 63 Pulse Rate 68 Pulse Rate 60 Pulse Rate 58 Respiratory Rate 16 Respiratory Rate 22 Respiratory Rate 17 Respiratory Rate 28 Respiratory Rate 26 Respiratory Rate 19 Respiratory Rate 18 Blood Pressure 150/68 Blood Pressure 151/82 Blood Pressure 156/66 Blood Pressure 149/66 Blood Pressure 168/75 Blood Pressure 137/60 Blood Pressure 141/65 O2 Sat by Pulse Oximetry 99 O2 Sat by Pulse Oximetry 100 O2 Sat by Pulse Oximetry 100 O2 Sat by Pulse Oximetry 99 O2 Sat by Pulse Oximetry 99 O2 Sat by Pulse Oximetry 98 O2 Sat by Pulse Oximetry 99 Intake and Output: Intake & Output 07/24/23 07/25/23 07/26/23 07/27/23 11:59 11:59 11:59 11:59 Intake Total 423 / 423 2078 / 2078 1577 / 1577 Output Total 1200 / 1200 1650 / 1650 1625 / 1625 Balance -777 / -777 428 / 428 -48 / -48 Physical Exam Oriented: Normal Eyes: Normal Ear: Normal Nose: Normal Throat: Dry Respiratory: Diminished and Rhonchi Cardiovascular: Normal : Other (BLEVINS CATH) Tenderness: Epigastric and Mild Skin: Red (MILD LLE ERYTHEMA) Musculoskeletal: Foot and Tender Psychiatric: Normal Mood Description: Anxious Affect: Anxious Speech Pattern: Clear and Appropriate Laboratory and Diagnostics 07/26/23 05:06 07/26/23 05:06 Labs: 07/24/23 18:32 Urine,Catheterized Urine Culture - Final Laboratory WBC 5.8 X10^3/uL (3.6-10.0) 07/26/23 05:06 RBC 2.72 X10^6/uL (3.5-5.4) L 07/26/23 05:06 Hgb 8.4 g/dL (12.0-16.0) L 07/26/23 05:06 Hct 25.4 % (36.0-47.0) L 07/26/23 05:06 MCV 93.4 fL (80.0-100.0) 07/26/23 05:06 MCH 31.0 pg (27.0-34.0) 07/26/23 05:06 MCHC 33.2 g/dL (33.0-35.0) 07/26/23 05:06 RDW 15.1 % (11.6-16.5) 07/26/23 05:06 Plt Count 169 X10^3/uL (150.0-450.0) 07/26/23 05:06 MPV 8.6 fL (7.4-11.0) 07/26/23 05:06 Neut % (Auto) 68.3 % (42.0-75.0) 07/26/23 05:06 Lymph % (Auto) 15.0 % (21.0-51.0) L 07/26/23 05:06 [place] % (Auto) 12.1 % (0.0-13.0) 07/26/23 05:06 Eos % (Auto) 3.4 % (0.9-2.9) H 07/26/23 05:06 Baso % (Auto) 1.2 % (0.2-1.0) H 07/26/23 05:06 Neut # (Auto) 3.9 x10^3/uL (2.2-4.8) 07/26/23 05:06 Lymph # (Auto) 0.9 X10^3/uL (1.3-2.9) L 07/26/23 05:06 [place] # (Auto) 0.7 x10^3/uL (0.3-0.8) 07/26/23 05:06 Eos # (Auto) 0.2 x10^3/uL (0.0-0.2) 07/26/23 05:06 Baso # (Auto) 0.1 X10^3/uL (0.0-0.1) 07/26/23 05:06 Absolute Nucleated RBC 0.1 /100WBC 07/26/23 05:06 PT 16.6 SECONDS (11.8-14.3) 07/24/23 18:16 INR Target Range - 07/24/23 18:16 INR 1.37 (0.8-1.3) H 07/24/23 18:16 Sodium 127 mmol/L (136-145) L 07/26/23 05:06 Corrected Sodium TNP 07/26/23 05:06 Potassium 3.3 mmol/L (3.5-5.1) L 07/26/23 05:06 Chloride 95 mmol/L (98-107) L 07/26/23 05:06 Carbon Dioxide 25.2 mmol/L (21-32) 07/26/23 05:06 BUN 53 mg/dL (7-18) H 07/26/23 05:06 Creatinine 2.78 mg/dL (0.55-1.02) H 07/26/23 05:06 Est GFR (MDRD) Af Amer 21 (>60) L 07/26/23 05:06 Est GFR (MDRD) Non-Af 17 (>60) L 07/26/23 05:06 Glucose 101 mg/dL (65-99) H 07/26/23 05:06 Calcium 7.9 mg/dL (8.5-10.1) L 07/26/23 05:06 Corrected Calcium 8.9 mg/dL (8.5-10.1) 07/26/23 05:06 Magnesium 2.2 mg/dL (2.0-2.9) 07/26/23 05:06 Total Bilirubin 0.30 mg/dL (0.2-1.0) 07/26/23 05:06 AST 24 Units/L (15-37) 07/26/23 05:06 ALT 21 Units/L (12-78) 07/26/23 05:06 Alkaline Phosphatase 111 Units/L (46-116) 07/26/23 05:06 Troponin I High Sens 20.8 ng/L (4.0-60.0) 07/24/23 18:16 B-Natriuretic Peptide 1330 pg/mL (0-79) H 07/26/23 05:06 Total Protein 5.3 g/dL (6.4-8.2) L 07/26/23 05:06 Albumin 2.7 g/dL (3.4-5.0) L 07/26/23 05:06 Globulin 2.6 g/dL (2.5-4.5) 07/26/23 05:06 Albumin/Globulin Ratio 1.0 Ratio (1.1-2.1) L 07/26/23 05:06 Specimen Type Catherized urine 07/24/23 18:32 Urine Color Yellow (YELLOW) 07/24/23 18:32 Urine Appearance Clear (CLEAR) 07/24/23 18:32 Urine pH 5.0 (5.0 - 8.0) 07/24/23 18:32 Ur Specific [place] 1.020 (1.000-1.030) 07/24/23 18:32 Urine Protein 1+ (NEGATIVE) 07/24/23 18:32 Urine Glucose (UA) Negative (NEGATIVE) 07/24/23 18:32 Urine Ketones Negative (NEGATIVE) 07/24/23 18:32 Urine Blood Negative (NEGATIVE) 07/24/23 18:32 Urine Nitrite Negative (NEGATIVE) 07/24/23 18:32 Urine Bilirubin Negative (NEGATIVE) 07/24/23 18:32 Urine Urobilinogen Normal (NORMAL) 07/24/23 18:32 Ur Leukocyte Esterase Negative (NEGATIVE) 07/24/23 18:32 Urine RBC None seen /HPF (0-3) 07/24/23 18:32 Urine WBC None seen /HPF (0-5) 07/24/23 18:32 Ur Squamous Epith Cells Rare /HPF (NEGATIVE) 07/24/23 18:32 Urine Bacteria Negative /HPF (NEGATIVE) 07/24/23 18:32 Ur Culture Indicated? Yes/culture set up 07/24/23 18:32 Plan (1) Pneumonia: Status: Acute Qualifiers: Laterality: bilateral Lung location: unspecified part of lung Pneumonia type: due to unspecified organism Qualified Code(s): J18.9 - Pneumonia, unspecified organism Narrative Support Text: IV HYDRATION, STRICT I&OS RESP THERAPY, SUPPLEMENTAL O2 PPI THERAPY, DAILY INR CULTURES OBTAINED ON ADMISSION, CARDIAC MONITORING DIURESIS, BP CONTROL (2) Acute hyponatremia: Status: Acute (3) [id number] renal failure: Status: Acute (4) GERD (gastroesophageal reflux disease): Status: Chronic Qualifiers: Esophagitis presence: esophagitis presence not specified Qualified Code(s): K21.9 - Gastro-esophageal reflux disease without esophagitis (5) Atrial fibrillation: Status: Acute Qualifiers: Atrial fibrillation type: paroxysmal Qualified Code(s): I48.0 - Paroxysmal atrial fibrillation (6) HTN (hypertension): Status: Chronic Qualifiers: Hypertension type: primary hypertension Qualified Code(s): I10 - Essential (primary) hypertension (7) Anemia: Status: None Qualifiers: Anemia type: iron deficiency Iron deficiency anemia type: unspecified iron deficiency Qualified Code(s): D50.9 - Iron deficiency anemia, unspecified
[2023-07-26] MEDS: COUMADIN TAB 5 MG (JANTOVEN) PO SCH (21:09)
[2023-07-26] MEDS: RESTORIL CAP 15 MG PO PRN (21:09)
[2023-07-26] MEDS: COLACE CAP 100 MG PO PRN (21:09)
[2023-07-26] MEDS: PROTONIX INJ 40 MG VIAL IVP SCH (21:10)
[2023-07-27] MEDS: NS 1,000 ML IV 1,000 ML IV SCH ×4 (05:04→23:55)
[2023-07-27 05:21] LABS: BASOPHILS # (AUTO) 0.1 X10^3/uL (0.0-0.1); BASOPHILS % (AUTO) 1.4 % (0.2-1.0); EOSINOPHILS # (AUTO) 0.2 x10^3/uL (0.0-0.2); EOSINOPHILS % (AUTO) 4.7 % (0.9-2.9); HEMATOCRIT 25.6 % (36.0-47.0); HEMOGLOBIN 8.4 g/dL (12.0-16.0); LYMPHOCYTES # (AUTO) 0.9 X10^3/uL (1.3-2.9); LYMPHOCYTES % (AUTO) 17.9 % (21.0-51.0); MEAN CORPUSCULAR HEMOGLOBIN 30.8 pg (27.0-34.0); MEAN CORPUSCULAR HGB CONC 32.8 g/dL (33.0-35.0); MEAN CORPUSCULAR VOLUME 93.9 fL (80.0-100.0); MEAN PLATELET VOLUME 9.1 fL (7.4-11.0); MONOCYTES # (AUTO) 0.5 x10^3/uL (0.3-0.8); MONOCYTES % (AUTO) 10.3 % (0.0-13.0); NEUTROPHILS # (AUTO) 3.4 x10^3/uL (2.2-4.8); NEUTROPHILS % (AUTO) 65.7 % (42.0-75.0); PLATELET COUNT 179 X10^3/uL (150.0-450.0); RED BLOOD COUNT 2.73 X10^6/uL (3.5-5.4); RED CELL DISTRIBUTION WIDTH 15.3 % (11.6-16.5); WHITE BLOOD COUNT 5.1 X10^3/uL (3.6-10.0)
[2023-07-27 05:29] LABS: ALANINE AMINOTRANSFERASE 19 Units/L (12-78); ALBUMIN 2.5 g/dL (3.4-5.0); ALKALINE PHOSPHATASE 104 Units/L (46-116); ASPARTATE AMINO TRANSFERASE 25 Units/L (15-37); BLOOD UREA NITROGEN 53 mg/dL (7-18); CALCIUM 7.9 mg/dL (8.5-10.1); CARBON DIOXIDE 23.4 mmol/L (21-32); CHLORIDE 99 mmol/L (98-107); COR CA(FOR HYPOALB) 9.1 mg/dL (8.5-10.1); CREATININE 2.45 mg/dL (0.55-1.02); GLUCOSE 86 mg/dL (65-99); POTASSIUM 3.7 mmol/L (3.5-5.1); SODIUM 132 mmol/L (136-145); TOTAL PROTEIN 5.1 g/dL (6.4-8.2); eGFR NON BLACK RACES 20 (>60)
[2023-07-27] MEDS: CARAFATE PO SCH ×4 (05:34→20:22)
[2023-07-27] MEDS: SYNTHROID 25 mcg TAB PO SCH (05:35)
[2023-07-27] MEDS: PROVENTIL NEB TX 0.083% 2.5MG/ 3ML NEB SCH ×3 (05:39→20:00)
--- NOTE | 2023-07-27 06:31 | RAD ---
EXAM:CHEST, 1 VIEWHISTORY:SOB ;COMPARISON:07/26/2023.TECHNIQUE:AP view of the chestFINDINGS:Cardiac silhouette is enlarged. Known large hiatal hernia. Similar-appearing small bilateral pleural effusions and associated bibasilar opacities. No pneumothorax.IMPRESSION:No significant change compared to prior radiograph.THIS IS AN ELECTRONICALLY VERIFIED FINAL [id number]/2023 6:28 AM - Electronically signed by Roberto Mcfarlane MD
[2023-07-27] MEDS ORDERED: CONSULT PHARMACY - POTASSIUM & MAGNESIUM XX SCH (07:00)
[2023-07-27] MEDS: PLAVIX PO SCH (08:56)
[2023-07-27] MEDS: ZYLOPRIM PO SCH (08:56)
[2023-07-27] MEDS: CORDARONE TAB 200 MG PO SCH ×2 (08:56→20:22)
[2023-07-27] MEDS: PROTONIX INJ 40 MG VIAL IVP SCH ×2 (08:57→20:23)
[2023-07-27] MEDS: TOPROL XL PO SCH (08:57)
[2023-07-27] MEDS: LASIX IVP SCH ×2 (08:57→16:21)
[2023-07-27] MEDS: APRESOLINE TAB 25 MG PO SCH ×2 (08:57→20:22)
[2023-07-27] MEDS ORDERED: MICRO K EXTEN CAP 10 MEQ PO SCH (09:00)
[2023-07-27] MEDS ORDERED: NYSTATIN CREAM TOP PRN (09:24)
[2023-07-27] MEDS ORDERED: LASIX IVP ONE (09:25)
--- NOTE | 2023-07-27 14:12 | PCM.PROG ---
Progress Note Progress Note for Day of Date of Exam: 07/27/23 Subjective Subjective: PT IS 82 WF, PATIENT OF DR MCCOY, CURRENTLY BEING TREATED FOR PNEUMONIA, ACUTE ON CHRONIC KIDNEY DISEASE, HYPONATREMIA AND CHF. PT IS ON GENTLE IV HYDRATION AND STRICT I&OS. PTS SODIUM WAS IMPROVED TO 132 THIS MORNING,CREAT 2.45. PT CO BILATERAL LOWER EXTREMITY PAIN AND SWELLING. PT HAS DI FFUSE LLE REDNESS WITHOUT BLISTER FORMATION. PT REPORTS SHE HAS HAD ROCEPHIN BEFORE AND IT HELPED. PT CXR REVEALED BILATERAL SMALL PLEURAL EFFUSIONS AND OPACITIES. PLAN TO CONTINUE RESP THERAPY. PT CO INCREASED "GAS" IN HER CHEST WITH FREQUENT BURPING AND BELCHING ON EXAM ON 07/[address]. PT [address] A [address] OF ABD/PELVIS REVEALING A LARGE HIATAL HERNIA. PT STARTED ON IV PROTONIX BID AND KEEP HOB AT 45 AND SHE REPORTS IT HAS IMPROVED THIS MORNING. PT NEEDS REHAB THERAPY FOR STRENGTH BUILDING DUE TO WEAKNESS EXTENDED ILLNESSES. DISCUSSED THIS WITH PT AND FAMILY AT BEDSIDE. Past Medical Family Social History Allergies: Allergies cephalexin [From Keflex] Allergy (Verified 07/24/23 18:08) nitrofurantoin [From Macrobid] Allergy (Verified 07/24/23 18:08) Sulfa (Sulfonamide Antibiotics) Allergy (Verified 07/24/23 18:08) Vital Signs and I&O's Vital Signs: Vital Signs Temperature 97.8 F Temperature 97.8 F Temperature 97.4 F Temperature 97.4 F Pulse Rate 68 Pulse Rate 71 Pulse Rate 71 Pulse Rate 75 Pulse Rate 69 Pulse Rate 68 Pulse Rate 71 Pulse Rate 71 Pulse Rate 70 Pulse Rate 81 Pulse Rate 72 Respiratory Rate 19 Respiratory Rate 18 Respiratory Rate 18 Respiratory Rate 17 Respiratory Rate 20 Respiratory Rate 23 Respiratory Rate 25 Respiratory Rate 30 Respiratory Rate 37 Respiratory Rate 20 Blood Pressure 132/63 Blood Pressure 132/58 Blood Pressure 156/74 Blood Pressure 133/60 Blood Pressure 136/63 Blood Pressure 147/69 Blood Pressure 136/58 O2 Sat by Pulse Oximetry 100 O2 Sat by Pulse Oximetry 99 O2 Sat by Pulse Oximetry 99 O2 Sat by Pulse Oximetry 100 O2 Sat by Pulse Oximetry 99 O2 Sat by Pulse Oximetry 97 O2 Sat by Pulse Oximetry 98 O2 Sat by Pulse Oximetry 98 O2 Sat by Pulse Oximetry 97 O2 Sat by Pulse Oximetry 99 Intake and Output: Intake & Output 07/25/23 07/26/23 07/27/23 07/28/23 11:59 11:59 11:59 11:59 Intake Total 423 / 423 2077 / 2077 1881 / 1881 Output Total 1200 / 1200 1650 / 1650 3950 / 3950 Balance -777 / -777 428 / 428 -2068 / -2068 Physical Exam Oriented: Normal Eyes: Normal Ear: Normal Nose: Normal Throat: Dry Respiratory: Diminished and Rhonchi Cardiovascular: Normal : Other (BLEVINS CATH) Auscultation: Bowel Sounds: Normal Tenderness: Epigastric and Mild Skin: Red (MILD LLE ERYTHEMA) Musculoskeletal: Foot and Tender Psychiatric: Normal Mood Description: Anxious Affect: Anxious Speech Pattern: Clear and Appropriate Laboratory and Diagnostics 07/27/23 04:50 07/27/23 04:50 Labs: 07/24/23 18:32 Urine,Catheterized Urine Culture - Final Laboratory WBC 5.1 X10^3/uL (3.6-10.0) 07/27/23 04:50 RBC 2.73 X10^6/uL (3.5-5.4) L 07/27/23 04:50 Hgb 8.4 g/dL (12.0-16.0) L 07/27/23 04:50 Hct 25.6 % (36.0-47.0) L 07/27/23 04:50 MCV 93.9 fL (80.0-100.0) 07/27/23 04:50 MCH 30.8 pg (27.0-34.0) 07/27/23 04:50 MCHC 32.8 g/dL (33.0-35.0) L 07/27/23 04:50 RDW 15.3 % (11.6-16.5) 07/27/23 04:50 Plt Count 179 X10^3/uL (150.0-450.0) 07/27/23 04:50 MPV 9.1 fL (7.4-11.0) 07/27/23 04:50 Neut % (Auto) 65.7 % (42.0-75.0) 07/27/23 04:50 Lymph % (Auto) 17.9 % (21.0-51.0) L 07/27/23 04:50 [place] % (Auto) 10.3 % (0.0-13.0) 07/27/23 04:50 Eos % (Auto) 4.7 % (0.9-2.9) H 07/27/23 04:50 Baso % (Auto) 1.4 % (0.2-1.0) H 07/27/23 04:50 Neut # (Auto) 3.4 x10^3/uL (2.2-4.8) 07/27/23 04:50 Lymph # (Auto) 0.9 X10^3/uL (1.3-2.9) L 07/27/23 04:50 [place] # (Auto) 0.5 x10^3/uL (0.3-0.8) 07/27/23 04:50 Eos # (Auto) 0.2 x10^3/uL (0.0-0.2) 07/27/23 04:50 Baso # (Auto) 0.1 X10^3/uL (0.0-0.1) 07/27/23 04:50 Absolute Nucleated RBC 0.1 /100WBC 07/27/23 04:50 PT 20.5 SECONDS (11.8-14.3) 07/27/23 04:50 INR Target Range - 07/27/23 04:50 INR 1.80 (0.8-1.3) H 07/27/23 04:50 Sodium 132 mmol/L (136-145) L 07/27/23 04:50 Corrected Sodium TNP 07/27/23 04:50 Potassium 3.7 mmol/L (3.5-5.1) 07/27/23 04:50 Chloride 99 mmol/L (98-107) 07/27/23 04:50 Carbon Dioxide 23.4 mmol/L (21-32) 07/27/23 04:50 BUN 53 mg/dL (7-18) H 07/27/23 04:50 Creatinine 2.45 mg/dL (0.55-1.02) H 07/27/23 04:50 Est GFR (MDRD) Af Amer 24 (>60) L 07/27/23 04:50 Est GFR (MDRD) Non-Af 20 (>60) L 07/27/23 04:50 Glucose 86 mg/dL (65-99) 07/27/23 04:50 Calcium 7.9 mg/dL (8.5-10.1) L 07/27/23 04:50 Corrected Calcium 9.1 mg/dL (8.5-10.1) 07/27/23 04:50 Magnesium 2.2 mg/dL (2.0-2.9) 07/26/23 05:06 Total Bilirubin 0.30 mg/dL (0.2-1.0) 07/27/23 04:50 AST 25 Units/L (15-37) 07/27/23 04:50 ALT 19 Units/L (12-78) 07/27/23 04:50 Alkaline Phosphatase 104 Units/L (46-116) 07/27/23 04:50 Troponin I High Sens 20.8 ng/L (4.0-60.0) 07/24/23 18:16 B-Natriuretic Peptide 1320 pg/mL (0-79) H 07/27/23 04:50 Total Protein 5.1 g/dL (6.4-8.2) L 07/27/23 04:50 Albumin 2.5 g/dL (3.4-5.0) L 07/27/23 04:50 Globulin 2.6 g/dL (2.5-4.5) 07/27/23 04:50 Albumin/Globulin Ratio 1.0 Ratio (1.1-2.1) L 07/27/23 04:50 Specimen Type Catherized urine 07/24/23 18:32 Urine Color Yellow (YELLOW) 07/24/23 18:32 Urine Appearance Clear (CLEAR) 07/24/23 18:32 Urine pH 5.0 (5.0 - 8.0) 07/24/23 18:32 Ur Specific [place] 1.020 (1.000-1.030) 07/24/23 18:32 Urine Protein 1+ (NEGATIVE) 07/24/23 18:32 Urine Glucose (UA) Negative (NEGATIVE) 07/24/23 18:32 Urine Ketones Negative (NEGATIVE) 07/24/23 18: Urine Blood Negative (NEGATIVE) 07/24/23 18: Urine Nitrite Negative (NEGATIVE) 07/24/23 18:32 Urine Bilirubin Negative (NEGATIVE) 07/24/23 18:32 Urine Urobilinogen Normal (NORMAL) 07/24/23 18:32 Ur Leukocyte Esterase Negative (NEGATIVE) 07/24/23 18:32 Urine RBC None seen /HPF (0-3) 07/24/23 18:32 Urine WBC None seen /HPF (0-5) 07/24/23 18:32 Ur Squamous Epith Cells Rare /HPF (NEGATIVE) 07/24/23 18:32 Urine Bacteria Negative /HPF (NEGATIVE) 07/24/23 18:32 Ur Culture Indicated? Yes/culture set up 07/24/23 18:32 Plan (1) [id number] renal failure: Status: Acute Narrative Support Text: GENTLE IV HYDRATION WITH ELECTROLYTE REPLACEMENT, STRICT I&OS IV ROCPEHIN, PRN SUPPLEMENTAL O2, BP AND CADIAC MONITORING IV LASIX, ELEVATE LOWER EXTREMITIES PPI THERAPY, DAILY INR PT CONSULT, REHAB THERAPY PLACEMENT (2) Pneumonia: Status: Acute Qualifiers: Laterality: bilateral Lung location: unspecified part of lung Pneumonia type: due to unspecified organism Qualified Code(s): J18.9 - Pneumonia, unspecified organism (3) Cellulitis of left leg: Status: Acute (4) Atrial fibrillation: Status: Acute Qualifiers: Atrial fibrillation type: paroxysmal Qualified Code(s): I48.0 - Paroxysmal atrial fibrillation (5) Acute hyponatremia: Status: Acute (6) GERD (gastroesophageal reflux disease): Status: Chronic Qualifiers: Esophagitis presence: esophagitis presence not specified Qualified Code(s): K21.9 - Gastro-esophageal reflux disease without esophagitis (7) HTN (hypertension): Status: Chronic Qualifiers: Hypertension type: primary hypertension Qualified Code(s): I10 - Essential (primary) hypertension (8) Anemia: Status: None Qualifiers: Anemia type: iron deficiency Iron deficiency anemia type: unspecified iron deficiency Qualified Code(s): D50.9 - Iron deficiency anemia, unspecified
[2023-07-27] MEDS: ROCEPHIN VIAL 1 GRAM 1 G in NS 100 ML IV 100 ML IV SCH (14:19)
[2023-07-27] MEDS: COUMADIN TAB 5 MG (JANTOVEN) PO SCH (20:22)
[2023-07-27] MEDS: RESTORIL CAP 15 MG PO PRN (20:22)
[2023-07-27] MEDS: COLACE CAP 100 MG PO PRN (20:22)
[2023-07-28 05:29] LABS: BASOPHILS # (AUTO) 0.1 X10^3/uL (0.0-0.1); EOSINOPHILS # (AUTO) 0.2 x10^3/uL (0.0-0.2); EOSINOPHILS % (AUTO) 4.7 % (0.9-2.9); HEMATOCRIT 25.4 % (36.0-47.0); HEMOGLOBIN 8.3 g/dL (12.0-16.0); LYMPHOCYTES % (AUTO) 19.6 % (21.0-51.0); MEAN CORPUSCULAR HEMOGLOBIN 30.9 pg (27.0-34.0); MEAN CORPUSCULAR HGB CONC 32.8 g/dL (33.0-35.0); MONOCYTES # (AUTO) 0.6 x10^3/uL (0.3-0.8); MONOCYTES % (AUTO) 11.4 % (0.0-13.0); NEUTROPHILS # (AUTO) 3.2 x10^3/uL (2.2-4.8); NEUTROPHILS % (AUTO) 63.3 % (42.0-75.0); PLATELET COUNT 162 X10^3/uL (150.0-450.0); RED CELL DISTRIBUTION WIDTH 15.3 % (11.6-16.5); WHITE BLOOD COUNT 5.1 X10^3/uL (3.6-10.0)
[2023-07-28] MEDS: PROVENTIL NEB TX 0.083% 2.5MG/ 3ML NEB SCH ×3 (05:30→21:09)
[2023-07-28 05:31] LABS: INR 2.13 (0.8-1.3)
[2023-07-28 05:37] LABS: ALANINE AMINOTRANSFERASE 16 Units/L (12-78); ALBUMIN 2.4 g/dL (3.4-5.0); ALKALINE PHOSPHATASE 105 Units/L (46-116); ASPARTATE AMINO TRANSFERASE 23 Units/L (15-37); BLOOD UREA NITROGEN 54 mg/dL (7-18); CALCIUM 7.7 mg/dL (8.5-10.1); CARBON DIOXIDE 27.5 mmol/L (21-32); CHLORIDE 102 mmol/L (98-107); CREATININE 2.45 mg/dL (0.55-1.02); GLUCOSE 90 mg/dL (65-99); POTASSIUM 3.7 mmol/L (3.5-5.1); SODIUM 136 mmol/L (136-145); eGFR NON BLACK RACES 20 (>60)
[2023-07-28] MEDS: CARAFATE PO SCH ×4 (05:41→20:58)
[2023-07-28] MEDS: SYNTHROID 25 mcg TAB PO SCH (05:41)
--- NOTE | 2023-07-28 06:07 | RAD ---
HISTORYSOB HX: HTN, COPDSTUDYCHEST, 1 [id number]/2023FINDINGSThe trachea is midline. The cardiac silhouette is mildly enlarged.. Small bilateral pleural effusions with bibasilar opacities. The bony thorax is unremarkable. Prosthetic heart valve.IMPRESSIONMild cardiomegalySmall bilateral pleural effusions with bibasilar opacities unchanged from the hdz 06/2023Electronically signed by: Matthew Ibanez (Jul 28, 2023 06:06:24)
[2023-07-28] MEDS ORDERED: CONSULT PHARMACY - POTASSIUM & MAGNESIUM XX SCH (07:00)
[2023-07-28] MEDS: PEPCID TAB 20 MG PO SCH (08:20)
[2023-07-28] MEDS: PLAVIX PO SCH (08:20)
[2023-07-28] MEDS: CORDARONE TAB 200 MG PO SCH ×2 (08:21→20:58)
[2023-07-28] MEDS: TOPROL XL PO SCH (08:21)
[2023-07-28] MEDS: ZYLOPRIM PO SCH (08:21)
[2023-07-28] MEDS: PROTONIX INJ 40 MG VIAL IVP SCH ×2 (08:21→20:57)
[2023-07-28] MEDS: APRESOLINE TAB 25 MG PO SCH ×2 (08:21→20:57)
[2023-07-28] MEDS: ROCEPHIN VIAL 1 GRAM 1 G in NS 100 ML IV 100 ML IV SCH (08:22)
[2023-07-28] MEDS: LASIX IVP SCH ×2 (08:22→17:20)
[2023-07-28] MEDS ORDERED: MICRO K EXTEN CAP 10 MEQ PO SCH (09:00)
[2023-07-28] MEDS ORDERED: MAG-OX TAB PO SCH (09:00)
[2023-07-28] MEDS: NS 1,000 ML IV 1,000 ML IV SCH ×3 (11:15→23:07)
--- NOTE | 2023-07-28 18:12 | PCM.PROG ---
Progress Note Progress Note for Day of Date of Exam: 07/28/23 Subjective Subjective: PT IS 82 WF, PATIENT OF DR MCCOY, CURRENTLY BEING TREATED FOR PNEUMONIA, ACUTE ON CHRONIC KIDNEY DISEASE, HYPONATREMIA AND CHF. PT IS ON GENTLE IV HYDRATION AND STRICT I&OS. PTS SODIUM WAS IMPROVED TO 132 THIS MORNING,CREAT 2.45. PT CO BILATERAL LOWER EXTREMITY PAIN AND SWELLING. PT HAS DI FFUSE LLE REDNESS WITHOUT BLISTER FORMATION. PT REPORTS SHE HAS HAD ROCEPHIN BEFORE AND IT HELPED. PT CXR REVEALED BILATERAL SMALL PLEURAL EFFUSIONS AND OPACITIES. PLAN TO CONTINUE RESP THERAPY. PT CO INCREASED "GAS" IN HER CHEST WITH FREQUENT BURPING AND BELCHING ON EXAM ON 07/26. PT HAD A CT OF ABD/PELVIS REVEALING A LARGE HIATAL HERNIA. PT STARTED ON IV PROTONIX BID AND KEEP HOB AT 45 AND SHE REPORTS IT HAS IMPROVED THIS MORNING. PT NEEDS REHAB THERAPY FOR STRENGTH BUILDING DUE TO WEAKNESS EXTENDED ILLNESSES. DISCUSSED THIS WITH PT AND FAMILY AT BEDSIDE. Ms. [place] is sitting up in a chair this morning in good spirits. She reports she is feeling much better today. Her hemoglobin is steady at 8.3 today. Her creatinine is 2.45 and is improved since she came in the hospital. She is s etting 100% on her oxygen saturation this morning. Her blood pressure is up to 159/66. However, we will watch this today to make adjustments if necessary. Her hyponatremia has resolved as her sodium level has normalized to 136 this morning. We will plan on continuing her current treatment and order her routine labs tomorrow morning. Past Medical Family Social History Allergies: Allergies cephalexin [From Keflex] Allergy (Verified 07/24/23 18:08) nitrofurantoin [From Macrobid] Allergy (Verified 07/24/23 18:08) Sulfa (Sulfonamide Antibiotics) Allergy (Verified 07/24/23 18:08) Review of Systems ROS: No change since H&P Vital Signs and I&O's Vital Signs: Vital Signs Temperature 97.6 F Pulse Rate 69 Pulse Rate 73 Pulse Rate 72 Pulse Rate 73 Pulse Rate 74 Pulse Rate 69 Pulse Rate 74 Pulse Rate 73 Pulse Rate 73 Respiratory Rate 24 Respiratory Rate 26 Respiratory Rate 22 Respiratory Rate 21 Respiratory Rate 19 Respiratory Rate 37 Respiratory Rate 29 Respiratory Rate 27 Blood Pressure 159/66 Blood Pressure 158/71 Blood Pressure 145/67 Blood Pressure 134/63 Blood Pressure 136/65 Blood Pressure 128/60 Blood Pressure 135/59 O2 Sat by Pulse Oximetry 100 O2 Sat by Pulse Oximetry 99 O2 Sat by Pulse Oximetry 100 O2 Sat by Pulse Oximetry 99 O2 Sat by Pulse Oximetry 100 O2 Sat by Pulse Oximetry 99 O2 Sat by Pulse Oximetry 100 O2 Sat by Pulse Oximetry 100 O2 Sat by Pulse Oximetry 100 Intake and Output: Intake & Output 07/26/23 07/27/23 07/28/23 07/29/23 11:59 11:59 11:59 11:59 Intake Total 2077 1881 / 1881 3070 / 3070 1371 / 1371 Output Total 1650 / 1650 3950 / 3950 1720 / 1720 1400 / 1400 Balance 428 / 428 -2068 / -2068 1350 / 1350 - Physical Exam Oriented: Normal Eyes: Normal Ear: Normal Nose: Normal Throat: Dry Respiratory: Diminished and Rhonchi Cardiovascular: Normal : Other (BLEVINS CATH) Auscultation: Bowel Sounds: Normal Tenderness: Epigastric and Mild Skin: Red (MILD LLE ERYTHEMA) Musculoskeletal: Foot and Tender Psychiatric: Normal Mood Description: Anxious Affect: Anxious Speech Pattern: Clear and Appropriate Laboratory and Diagnostics 07/28/23 04:35 07/28/23 04:35 Labs: 07/24/23 18:32 Urine,Catheterized Urine Culture - Final Laboratory WBC 5.1 X10^3/uL (3.6-10.0) 07/28/23 04:35 RBC 2.70 X10^6/uL (3.5-5.4) L 07/28/23 04:35 Hgb 8.3 g/dL (12.0-16.0) L 07/28/23 04:35 Hct 25.4 % (36.0-47.0) L 07/28/23 04:35 MCV 94.0 fL (80.0-100.0) 07/28/23 04:35 MCH 30.9 pg (27.0-34.0) 07/28/23 04:35 MCHC 32.8 g/dL (33.0-35.0) L 07/28/23 04:35 RDW 15.3 % (11.6-16.5) 07/28/23 04:35 Plt Count 162 X10^3/uL (150.0-450.0) 07/28/23 04:35 MPV 9.0 fL (7.4-11.0) 07/28/23 04:35 Neut % (Auto) 63.3 % (42.0-75.0) 07/28/23 04:35 Lymph % (Auto) 19.6 % (21.0-51.0) L 07/28/23 04:35 [place] % (Auto) 11.4 % (0.0-13.0) 07/28/23 04:35 Eos % (Auto) 4.7 % (0.9-2.9) H 07/28/23 04:35 Baso % (Auto) 1.0 % (0.2-1.0) 07/28/23 04:35 Neut # (Auto) 3.2 x10^3/uL (2.2-4.8) 07/28/23 04:35 Lymph # (Auto) 1.0 X10^3/uL (1.3-2.9) L 07/28/23 04:35 [place] # (Auto) 0.6 x10^3/uL (0.3-0.8) 07/28/23 04:35 Eos # (Auto) 0.2 x10^3/uL (0.0-0.2) 07/28/23 04:35 Baso # (Auto) 0.1 X10^3/uL (0.0-0.1) 07/28/23 04:35 Absolute Nucleated RBC 0.0 /100WBC 07/28/23 04:35 PT 23.5 SECONDS (11.8-14.3) 07/28/23 04:35 INR Target Range - 07/28/23 04:35 INR 2.13 (0.8-1.3) H 07/28/23 04:35 Sodium 136 mmol/L (136-145) 07/28/23 04:35 Corrected Sodium TNP 07/28/23 04:35 Potassium 3.7 mmol/L (3.5-5.1) 07/28/23 04:35 Chloride 102 mmol/L (98-107) 07/28/23 04:35 Carbon Dioxide 27.5 mmol/L (21-32) 07/28/23 04:35 BUN 54 mg/dL (7-18) H 07/28/23 04:35 Creatinine 2.45 mg/dL (0.55-1.02) H 07/28/23 04:35 Est GFR (MDRD) Af Amer 24 (>60) L 07/28/23 04:35 Est GFR (MDRD) Non-Af 20 (>60) L 07/28/23 04:35 Glucose 90 mg/dL (65-99) 07/28/23 04:35 Calcium 7.7 mg/dL (8.5-10.1) L 07/28/23 04:35 Corrected Calcium 9.0 mg/dL (8.5-10.1) 07/28/23 04:35 Magnesium 1.8 mg/dL (2.0-2.9) L 07/28/23 04:35 Total Bilirubin 0.20 mg/dL (0.2-1.0) 07/28/23 04:35 AST 23 Units/L (15-37) 07/28/23 04:35 ALT 16 Units/L (12-78) 07/28/23 04:35 Alkaline Phosphatase 105 Units/L (46-116) 07/28/23 04:35 Troponin I High Sens 20.8 ng/L (4.0-60.0) 07/24/23 18:16 B-Natriuretic Peptide 1290 pg/mL (0-79) H 07/28/23 04:35 Total Protein 5.0 g/dL (6.4-8.2) L 07/28/23 04:35 Albumin 2.4 g/dL (3.4-5.0) L 07/28/23 04:35 Globulin 2.6 g/dL (2.5-4.5) 07/28/23 04:35 Albumin/Globulin Ratio 0.9 Ratio (1.1-2.1) L 07/28/23 04:35 Specimen Type Catherized urine 07/24/23 18:32 Urine Color Yellow (YELLOW) 07/24/23 18:32 Urine Appearance Clear (CLEAR) 07/24/23 18:32 Urine pH 5.0 (5.0 - 8.0) 07/24/23 18:32 Ur Specific [place] 1.020 (1.000-1.030) 07/24/23 18:32 Urine Protein 1+ (NEGATIVE) 07/24/23 18:32 Urine Glucose (UA) Negative (NEGATIVE) 07/24/23 18:32 Urine Ketones Negative (NEGATIVE) 07/24/23 18:32 Urine Blood Negative (NEGATIVE) 07/24/23 18:32 Urine Nitrite Negative (NEGATIVE) 07/24/23 18:32 Urine Bilirubin Negative (NEGATIVE) 07/24/23 18:32 Urine Urobilinogen Normal (NORMAL) 07/24/23 18:32 Ur Leukocyte Esterase Negative (NEGATIVE) 07/24/23 18:32 Urine RBC None seen /HPF (0-3) 07/24/23 18:32 Urine WBC None seen /HPF (0-5) 07/24/23 18:32 Ur Squamous Epith Cells Rare /HPF (NEGATIVE) 07/24/23 18:32 Urine Bacteria Negative /HPF (NEGATIVE) 07/24/23 18:32 Ur Culture Indicated? Yes/culture set up 07/24/23 18:32 Plan (1) [id number] renal failure: Status: Acute Plan: Improved since admission. Repeat CMP tomorrow. (2) Pneumonia: Status: Acute Qualifiers: Laterality: bilateral Lung location: unspecified part of lung Pneumonia type: due to unspecified organism Qualified Code(s): J18.9 - Pneumonia, unspecified organism (3) Cellulitis of left leg: Status: Acute Plan: Improving continue IV Rocephin. (4) Atrial fibrillation: Status: Acute Qualifiers: Atrial fibrillation type: paroxysmal Qualified Code(s): I48.0 - Paroxysmal atrial fibrillation (5) Acute hyponatremia: Status: Resolved Plan: Monitor daily sodium levels. (6) GERD (gastroesophageal reflux disease): Status: Chronic Qualifiers: Esophagitis presence: esophagitis presence not specified Qualified Code(s): K21.9 - Gastro-esophageal reflux disease without esophagitis Plan: Continue Pepcid for GI protection. (7) HTN (hypertension): Status: Chronic Qualifiers: Hypertension type: primary hypertension Qualified Code(s): I10 - Essential (primary) hypertension Plan: Continue metoprolol. (8) Anemia: Status: None Qualifiers: Anemia type: iron deficiency Iron deficiency anemia type: unspecified iron deficiency Qualified Code(s): D50.9 - Iron deficiency anemia, unspecified Plan: Monitor daily CBCs.
[2023-07-28] MEDS: COLACE CAP 100 MG PO PRN (20:57)
[2023-07-28] MEDS: RESTORIL CAP 15 MG PO PRN (20:57)
[2023-07-28] MEDS: COUMADIN TAB 5 MG (JANTOVEN) PO SCH (20:58)
[2023-07-29 05:14] LABS: BASOPHILS # (AUTO) 0.1 X10^3/uL (0.0-0.1); BASOPHILS % (AUTO) 1.5 % (0.2-1.0); EOSINOPHILS # (AUTO) 0.2 x10^3/uL (0.0-0.2); HEMATOCRIT 24.5 % (36.0-47.0); HEMOGLOBIN 8.1 g/dL (12.0-16.0); LYMPHOCYTES # (AUTO) 1.1 X10^3/uL (1.3-2.9); LYMPHOCYTES % (AUTO) 19.4 % (21.0-51.0); MEAN CORPUSCULAR HEMOGLOBIN 31.2 pg (27.0-34.0); MEAN CORPUSCULAR HGB CONC 33.1 g/dL (33.0-35.0); MEAN CORPUSCULAR VOLUME 94.3 fL (80.0-100.0); MEAN PLATELET VOLUME 8.9 fL (7.4-11.0); MONOCYTES # (AUTO) 0.6 x10^3/uL (0.3-0.8); MONOCYTES % (AUTO) 10.2 % (0.0-13.0); NEUTROPHILS # (AUTO) 3.8 x10^3/uL (2.2-4.8); NEUTROPHILS % (AUTO) 64.9 % (42.0-75.0); PLATELET COUNT 162 X10^3/uL (150.0-450.0); RED CELL DISTRIBUTION WIDTH 15.6 % (11.6-16.5); WHITE BLOOD COUNT 5.9 X10^3/uL (3.6-10.0)
[2023-07-29 05:17] LABS: INR 2.15 (0.8-1.3)
[2023-07-29 05:26] LABS: ALANINE AMINOTRANSFERASE 17 Units/L (12-78); ALBUMIN 2.5 g/dL (3.4-5.0); ALKALINE PHOSPHATASE 101 Units/L (46-116); ASPARTATE AMINO TRANSFERASE 22 Units/L (15-37); BLOOD UREA NITROGEN 55 mg/dL (7-18); CALCIUM 7.8 mg/dL (8.5-10.1); CARBON DIOXIDE 26.4 mmol/L (21-32); CHLORIDE 104 mmol/L (98-107); CREATININE 2.28 mg/dL (0.55-1.02); GLUCOSE 91 mg/dL (65-99); POTASSIUM 3.6 mmol/L (3.5-5.1); SODIUM 138 mmol/L (136-145); eGFR NON BLACK RACES 22 (>60)
--- NOTE | 2023-07-29 05:34 | RAD ---
HISTORYSOB HX: HTN, COPD, CARDIOMEGALYSTUDYCHEST, 1 [id number]/[id number] trachea is midline. The cardiac silhouette is mildly enlarged.. Small bilateral pleural effusions with bibasilar opacities unchanged. No pneumothorax. The bony thorax is unremarkable.IMPRESSIONStable portable chest.Electronically signed by: Matthew Ibanez (Jul 29, 2023 05:33:49)
[2023-07-29] MEDS: CARAFATE PO SCH ×4 (05:35→20:24)
[2023-07-29] MEDS: SYNTHROID 25 mcg TAB PO SCH (05:35)
[2023-07-29] MEDS: PROVENTIL NEB TX 0.083% 2.5MG/ 3ML NEB SCH ×2 (06:12→20:00)
[2023-07-29] MEDS ORDERED: CONSULT PHARMACY - POTASSIUM & MAGNESIUM XX SCH ×2 (07:00→09:00)
[2023-07-29] MEDS ORDERED: MAG-OX TAB PO SCH (09:00)
[2023-07-29] MEDS ORDERED: MICRO K EXTEN CAP 10 MEQ PO SCH (09:00)
[2023-07-29] MEDS: ROCEPHIN VIAL 1 GRAM 1 G in NS 100 ML IV 100 ML IV SCH (09:36)
[2023-07-29] MEDS: TOPROL XL PO SCH (09:37)
[2023-07-29] MEDS: APRESOLINE TAB 25 MG PO SCH ×2 (09:37→20:24)
[2023-07-29] MEDS: PLAVIX PO SCH (09:37)
[2023-07-29] MEDS: ZYLOPRIM PO SCH (09:37)
[2023-07-29] MEDS: PROTONIX INJ 40 MG VIAL IVP SCH ×2 (09:38→20:24)
[2023-07-29] MEDS: LASIX IVP SCH ×2 (09:38→17:31)
[2023-07-29] MEDS: CORDARONE TAB 200 MG PO SCH ×2 (09:38→20:23)
[2023-07-29] MEDS ORDERED: TYLENOL 325 MG TAB PO PRN (10:36)
[2023-07-29] MEDS ORDERED: TYLENOL #3 TAB (W/CODEINE) PO PRN (10:51)
[2023-07-29] MEDS: NS 1,000 ML IV 1,000 ML IV SCH ×2 (12:10→23:03)
[2023-07-29] MEDS ORDERED: PROCRIT or EPOGEN VIAL 10,000 UNITS SC ONE ×2 (14:13→16:07)
--- NOTE | 2023-07-29 14:13 | PCM.PROG ---
Progress Note Progress Note for Day of Date of Exam: 07/29/23 Subjective Subjective: PT IS 82 WF, PATIENT OF DR MCCOY, CURRENTLY BEING TREATED FOR PNEUMONIA, ACUTE ON CHRONIC KIDNEY DISEASE, HYPONATREMIA AND CHF. PT IS ON GENTLE IV HYDRATION AND STRICT I&OS. PTS SODIUM WAS IMPROVED TO 132 THIS MORNING,CREAT 2.45. PT CO BILATERAL LOWER EXTREMITY PAIN AND SWELLING. PT HAS DI FFUSE LLE REDNESS WITHOUT BLISTER FORMATION. PT REPORTS SHE HAS HAD ROCEPHIN BEFORE AND IT HELPED. PT CXR REVEALED BILATERAL SMALL PLEURAL EFFUSIONS AND OPACITIES. PLAN TO CONTINUE RESP THERAPY. PT CO INCREASED "GAS" IN HER CHEST WITH FREQUENT BURPING AND BELCHING ON EXAM ON 07/26. PT HAD A CT OF ABD/PELVIS REVEALING A LARGE HIATAL HERNIA. PT STARTED ON IV PROTONIX BID AND KEEP HOB AT 45 AND SHE REPORTS IT HAS IMPROVED THIS MORNING. PT NEEDS REHAB THERAPY FOR STRENGTH BUILDING DUE TO WEAKNESS EXTENDED ILLNESSES. DISCUSSED THIS WITH PT AND FAMILY AT BEDSIDE. 28 July 2023 Ms. [place] is sitting up in a chair this morning in good spirits. She reports she is feeling much better today. Her hemoglobin is steady at 8.3 today. Her creatinine is 2.45 and is improved since she came in the hospital. She is setting 100% on her oxygen saturation this morning. Her blood pressure is up to 159/66. However, we will watch this today to make adjustments if necessary. Her hyponatremia has resolved as her sodium level has normalized to 136 this morning. We will continue her current treatment and order her routine labs tomorrow morning. 29 July 2023 Ms. [place] is sitting up in the chair again today and is in good spirits. She does complain of some generalized pain overall but states that she cannot take opioids so I mentioned Tylenol 3, and she is willing to try it. We will do 1 Tylenol 3 every 6 hours as needed for pain. Her hemoglobin has dropped slightly to 8.1 this morning, and her hematocrit is down to 24.5%. She would benefit from an injection of Procrit today, so I will order that. Her creatinine has improved slightly to 2.28 from 2.45. Her BNP has gone up slightly, about 200 points from yesterday. She is around 1400 now from 1200 and something. Her chest x-ray is unchanged and shows basilar pleural effusions and some atelectasis. She is not distressed this morning, and her vital signs are stable today. Past Medical Family Social History Allergies: Allergies cephalexin [From Keflex] Allergy (Verified 07/24/23 18:08) nitrofurantoin [From Macrobid] Allergy (Verified 07/24/23 18:08) Sulfa (Sulfonamide Antibiotics) Allergy (Verified 07/24/23 18:08) Review of Systems ROS: No change since H&P Vital Signs and I&O's Vital Signs: Vital Signs Temperature 97.7 F Pulse Rate 66 Pulse Rate 76 Pulse Rate 77 Pulse Rate 82 Pulse Rate 79 Pulse Rate 83 Respiratory Rate 18 Respiratory Rate 20 Respiratory Rate 19 Respiratory Rate 20 Respiratory Rate 19 Respiratory Rate 18 Blood Pressure 140/63 Blood Pressure 143/72 Blood Pressure 135/62 Blood Pressure 148/68 Blood Pressure 140/65 O2 Sat by Pulse Oximetry 99 O2 Sat by Pulse Oximetry 99 O2 Sat by Pulse Oximetry 99 O2 Sat by Pulse Oximetry 94 O2 Sat by Pulse Oximetry 99 O2 Sat by Pulse Oximetry 97 Intake and Output: Intake & Output 07/27/23 07/28/23 07/29/23 07/30/23 11:59 11:59 11:59 11:59 Intake Total 1881 / 1881 3070 / 3070 2626 / 2626 Output Total 3950 / 3950 1720 / 1720 2775 / 2775 Balance -2069 / -2069 1350 / 1350 -149 / -149 Physical Exam Oriented: Normal Eyes: Normal Ear: Normal Nose: Normal Throat: Dry Respiratory: Diminished and Rhonchi Cardiovascular: Normal : Other (BLEVINS CATH) Auscultation: Bowel Sounds: Normal Tenderness: Epigastric and Mild Skin: Red (MILD LLE ERYTHEMA) Musculoskeletal: Foot and Tender Psychiatric: Normal Mood Description: Anxious Affect: Anxious Speech Pattern: Clear and Appropriate Laboratory and Diagnostics 07/29/23 04:20 07/29/23 04:20 Labs: 07/24/23 18:32 Urine,Catheterized Urine Culture - Final Laboratory WBC 5.9 X10^3/uL (3.6-10.0) 07/29/23 04:20 RBC 2.60 X10^6/uL (3.5-5.4) L 07/29/23 04:20 Hgb 8.1 g/dL (12.0-16.0) L 07/29/23 04:20 Hct 24.5 % (36.0-47.0) L 07/29/23 04:20 MCV 94.3 fL (80.0-100.0) 07/29/23 04:20 MCH 31.2 pg (27.0-34.0) 07/29/23 04:20 MCHC 33.1 g/dL (33.0-35.0) 07/29/23 04:20 RDW 15.6 % (11.6-16.5) 07/29/23 04:20 Plt Count 162 X10^3/uL (150.0-450.0) 07/29/23 04:20 MPV 8.9 fL (7.4-11.0) 07/29/23 04:20 Neut % (Auto) 64.9 % (42.0-75.0) 07/29/23 04:20 Lymph % (Auto) 19.4 % (21.0-51.0) L 07/29/23 04:20 [place] % (Auto) 10.2 % (0.0-13.0) 07/29/23 04:20 Eos % (Auto) 4.0 % (0.9-2.9) H 07/29/23 04:20 Baso % (Auto) 1.5 % (0.2-1.0) H 07/29/23 04:20 Neut # (Auto) 3.8 x10^3/uL (2.2-4.8) 07/29/23 04:20 Lymph # (Auto) 1.1 X10^3/uL (1.3-2.9) L 07/29/23 04:20 [place] # (Auto) 0.6 x10^3/uL (0.3-0.8) 07/29/23 04:20 Eos # (Auto) 0.2 x10^3/uL (0.0-0.2) 07/29/23 04:20 Baso # (Auto) 0.1 X10^3/uL (0.0-0.1) 07/29/23 04:20 Absolute Nucleated RBC 0.1 /100WBC 07/29/23 04:20 PT 23.7 SECONDS (11.8-14.3) 07/29/23 04:20 INR Target Range - 07/29/23 04:20 INR 2.15 (0.8-1.3) H 07/29/23 04:20 Sodium 138 mmol/L (136-145) 07/29/23 04:20 Corrected Sodium TNP 07/29/23 04:20 Potassium 3.6 mmol/L (3.5-5.1) 07/29/23 04:20 Chloride 104 mmol/L (98-107) 07/29/23 04:20 Carbon Dioxide 26.4 mmol/L (21-32) 07/29/23 04:20 BUN 55 mg/dL (7-18) H 07/29/23 04:20 Creatinine 2.28 mg/dL (0.55-1.02) H 07/29/23 04:20 Est GFR (MDRD) Af Amer 26 (>60) L 07/29/23 04:20 Est GFR (MDRD) Non-Af 22 (>60) L 07/29/23 04:20 Glucose 91 mg/dL (65-99) 07/29/23 04:20 Calcium 7.8 mg/dL (8.5-10.1) L 07/29/23 04:20 Corrected Calcium 9.0 mg/dL (8.5-10.1) 07/29/23 04:20 Magnesium 1.7 mg/dL (2.0-2.9) L 07/29/23 04:20 Total Bilirubin 0.30 mg/dL (0.2-1.0) 07/29/23 04:20 AST 22 Units/L (15-37) 07/29/23 04:20 ALT 17 Units/L (12-78) 07/29/23 04:20 Alkaline Phosphatase 101 Units/L (46-116) 07/29/23 04:20 Troponin I High Sens 20.8 ng/L (4.0-60.0) 07/24/23 18:16 B-Natriuretic Peptide 1480 pg/mL (0-79) H 07/29/23 04:20 Total Protein 5.0 g/dL (6.4-8.2) L 07/29/23 04:20 Albumin 2.5 g/dL (3.4-5.0) L 07/29/23 04:20 Globulin 2.5 g/dL (2.5-4.5) 07/29/23 04:20 Albumin/Globulin Ratio 1.0 Ratio (1.1-2.1) L 07/29/23 04:20 Specimen Type Catherized urine 07/24/23 18:32 Urine Color Yellow (YELLOW) 07/24/23 18:32 Urine Appearance Clear (CLEAR) 07/24/23 18:32 Urine pH 5.0 (5.0 - 8.0) 07/24/23 18:32 Ur Specific Cyrus 1.020 (1.000-1.030) 07/24/23 18:32 Urine Protein 1+ (NEGATIVE) 07/24/23 18:32 Urine Glucose (UA) Negative (NEGATIVE) 07/24/23 18:32 Urine Ketones Negative (NEGATIVE) 07/24/23 18:32 Urine Blood Negative (NEGATIVE) 07/24/23 18:32 Urine Nitrite Negative (NEGATIVE) 07/24/23 18:32 Urine Bilirubin Negative (NEGATIVE) 07/24/23 18:32 Urine Urobilinogen Normal (NORMAL) 07/24/23 18:32 Ur Leukocyte Esterase Negative (NEGATIVE) 07/24/23 18:32 Urine RBC None seen /HPF (0-3) 07/24/23 18:32 Urine WBC None seen /HPF (0-5) 07/24/23 18:32 Ur Squamous Epith Cells Rare /HPF (NEGATIVE) 07/24/23 18:32 Urine Bacteria Negative /HPF (NEGATIVE) 07/24/23 18:32 Ur Culture Indicated? Yes/culture set up 07/24/23 18:32 Plan (1) [id number] renal failure: Status: Acute Plan: Improved since admission. Repeat CMP tomorrow. (2) Pneumonia: Status: Acute Qualifiers: Laterality: bilateral Lung location: unspecified part of lung Pneumonia type: due to unspecified organism Qualified Code(s): J18.9 - Pneumonia, unspecified organism (3) Cellulitis of left leg: Status: Acute Plan: Improving continue IV Rocephin. (4) Atrial fibrillation: Status: Acute Qualifiers: Atrial fibrillation type: paroxysmal Qualified Code(s): I48.0 - Paroxysmal atrial fibrillation (5) Acute hyponatremia: Status: Resolved Plan: Monitor daily sodium levels. (6) GERD (gastroesophageal reflux disease): Status: Chronic Qualifiers: Esophagitis presence: esophagitis presence not specified Qualified Code(s): K21.9 - Gastro-esophageal reflux disease without esophagitis Plan: Continue Pepcid for GI protection. (7) HTN (hypertension): Status: Chronic Qualifiers: Hypertension type: primary hypertension Qualified Code(s): I10 - Essential (primary) hypertension Plan: Continue metoprolol. (8) Anemia: Status: None Qualifiers: Anemia type: iron deficiency Iron deficiency anemia type: unspecified iron deficiency Qualified Code(s): D50.9 - Iron deficiency anemia, unspecified Plan: Monitor daily CBCs.
[2023-07-29] MEDS: COUMADIN TAB 5 MG (JANTOVEN) PO SCH (20:24)
[2023-07-29] MEDS: RESTORIL CAP 15 MG PO PRN (20:27)
[2023-07-30 05:00] LABS: BASOPHILS # (AUTO) 0.1 X10^3/uL (0.0-0.1); EOSINOPHILS # (AUTO) 0.2 x10^3/uL (0.0-0.2); EOSINOPHILS % (AUTO) 3.5 % (0.9-2.9); HEMATOCRIT 24.4 % (36.0-47.0); LYMPHOCYTES # (AUTO) 0.9 X10^3/uL (1.3-2.9); LYMPHOCYTES % (AUTO) 14.9 % (21.0-51.0); MEAN CORPUSCULAR HEMOGLOBIN 30.8 pg (27.0-34.0); MEAN CORPUSCULAR HGB CONC 32.7 g/dL (33.0-35.0); MEAN CORPUSCULAR VOLUME 94.2 fL (80.0-100.0); MEAN PLATELET VOLUME 9.1 fL (7.4-11.0); MONOCYTES # (AUTO) 0.6 x10^3/uL (0.3-0.8); MONOCYTES % (AUTO) 10.2 % (0.0-13.0); NEUTROPHILS # (AUTO) 4.4 x10^3/uL (2.2-4.8); NEUTROPHILS % (AUTO) 70.4 % (42.0-75.0); PLATELET COUNT 160 X10^3/uL (150.0-450.0); RED BLOOD COUNT 2.59 X10^6/uL (3.5-5.4); RED CELL DISTRIBUTION WIDTH 15.5 % (11.6-16.5); WHITE BLOOD COUNT 6.3 X10^3/uL (3.6-10.0)
[2023-07-30 05:03] LABS: ALANINE AMINOTRANSFERASE 16 Units/L (12-78); ALBUMIN 2.5 g/dL (3.4-5.0); ALKALINE PHOSPHATASE 104 Units/L (46-116); ASPARTATE AMINO TRANSFERASE 23 Units/L (15-37); BLOOD UREA NITROGEN 55 mg/dL (7-18); CALCIUM 7.8 mg/dL (8.5-10.1); CARBON DIOXIDE 26.8 mmol/L (21-32); CHLORIDE 105 mmol/L (98-107); CREATININE 2.31 mg/dL (0.55-1.02); GLUCOSE 107 mg/dL (65-99); MAGNESIUM 1.8 mg/dL (2.0-2.9); POTASSIUM 3.9 mmol/L (3.5-5.1); SODIUM 138 mmol/L (136-145); TOTAL PROTEIN 5.1 g/dL (6.4-8.2); eGFR NON BLACK RACES 21 (>60)
[2023-07-30] MEDS: PROVENTIL NEB TX 0.083% 2.5MG/ 3ML NEB SCH (05:06)
--- NOTE | 2023-07-30 05:09 | RAD ---
HISTORYsob, chf exacerbation chf, copdSTUDYCHEST, 1 [id number] trachea is midline. The cardiac silhouette is mildly enlarged.. Small bilateral pleural effusions with bibasilar parenchymal opacities unchanged. The bony thorax is unremarkable.IMPRESSIONStable portable chest.Electronically signed by: Matthew Ibanez (Jul 30, 2023 05:04:59)
[2023-07-30] MEDS: CARAFATE PO SCH ×4 (05:42→21:11)
[2023-07-30] MEDS: SYNTHROID 25 mcg TAB PO SCH (05:43)
[2023-07-30] MEDS ORDERED: CONSULT PHARMACY - POTASSIUM & MAGNESIUM XX SCH (07:00)
[2023-07-30] MEDS ORDERED: MICRO K EXTEN CAP 10 MEQ PO SCH (09:00)
[2023-07-30] MEDS: ZYLOPRIM PO SCH (09:00)
[2023-07-30] MEDS ORDERED: MAG-OX TAB PO SCH (09:00)
[2023-07-30] MEDS: ROCEPHIN VIAL 1 GRAM 1 G in NS 100 ML IV 100 ML IV SCH (09:00)
[2023-07-30] MEDS: APRESOLINE TAB 25 MG PO SCH ×2 (09:00→21:11)
[2023-07-30] MEDS: PEPCID TAB 20 MG PO SCH (09:00)
[2023-07-30] MEDS: CORDARONE TAB 200 MG PO SCH ×2 (09:00→21:11)
[2023-07-30] MEDS: TOPROL XL PO SCH (09:01)
[2023-07-30] MEDS: LASIX IVP SCH ×2 (09:01→17:09)
[2023-07-30] MEDS: PROTONIX INJ 40 MG VIAL IVP SCH ×2 (09:01→21:10)
[2023-07-30] MEDS: PLAVIX PO SCH (09:01)
[2023-07-30] MEDS: NS 1,000 ML IV 1,000 ML with MAGNESIUM SULFATE 50% INJ VIAL 1 G IV SCH ×4 (09:02→21:27)
[2023-07-30] MEDS ORDERED: XOPENEX 1.25 MG/3 ML NEBULE NEB ONE (13:07)
[2023-07-30] MEDS: XOPENEX 1.25 MG/3 ML NEBULE NEB SCH ×2 (13:15→20:47)
[2023-07-30] MEDS: KENALOG CREAM TOP SCH (21:10)
[2023-07-30] MEDS: RESTORIL CAP 15 MG PO PRN (21:11)
[2023-07-30] MEDS: COUMADIN TAB 5 MG (JANTOVEN) PO SCH (21:11)
[2023-07-31 05:15] LABS: BASOPHILS # (AUTO) 0.1 X10^3/uL (0.0-0.1); BASOPHILS % (AUTO) 1.1 % (0.2-1.0); EOSINOPHILS # (AUTO) 0.2 x10^3/uL (0.0-0.2); EOSINOPHILS % (AUTO) 4.2 % (0.9-2.9); HEMATOCRIT 24.1 % (36.0-47.0); HEMOGLOBIN 7.8 g/dL (12.0-16.0); LYMPHOCYTES # (AUTO) 1.2 X10^3/uL (1.3-2.9); LYMPHOCYTES % (AUTO) 21.2 % (21.0-51.0); MEAN CORPUSCULAR HEMOGLOBIN 30.6 pg (27.0-34.0); MEAN CORPUSCULAR HGB CONC 32.4 g/dL (33.0-35.0); MEAN CORPUSCULAR VOLUME 94.6 fL (80.0-100.0); MEAN PLATELET VOLUME 8.6 fL (7.4-11.0); MONOCYTES # (AUTO) 0.6 x10^3/uL (0.3-0.8); MONOCYTES % (AUTO) 10.5 % (0.0-13.0); NEUTROPHILS # (AUTO) 3.5 x10^3/uL (2.2-4.8); PLATELET COUNT 142 X10^3/uL (150.0-450.0); RED BLOOD COUNT 2.55 X10^6/uL (3.5-5.4); RED CELL DISTRIBUTION WIDTH 15.4 % (11.6-16.5); WHITE BLOOD COUNT 5.6 X10^3/uL (3.6-10.0)
[2023-07-31 05:16] LABS: INR 2.53 (0.8-1.3)
[2023-07-31 05:25] LABS: ALANINE AMINOTRANSFERASE 16 Units/L (12-78); ALBUMIN 2.4 g/dL (3.4-5.0); ALKALINE PHOSPHATASE 100 Units/L (46-116); ASPARTATE AMINO TRANSFERASE 19 Units/L (15-37); BLOOD UREA NITROGEN 53 mg/dL (7-18); CALCIUM 7.7 mg/dL (8.5-10.1); CARBON DIOXIDE 27.2 mmol/L (21-32); CHLORIDE 106 mmol/L (98-107); CREATININE 2.36 mg/dL (0.55-1.02); GLUCOSE 89 mg/dL (65-99); POTASSIUM 3.8 mmol/L (3.5-5.1); SODIUM 139 mmol/L (136-145); eGFR NON BLACK RACES 21 (>60)
[2023-07-31] MEDS: SYNTHROID 25 mcg TAB PO SCH (05:25)
[2023-07-31] MEDS: CARAFATE PO SCH ×4 (05:25→20:28)
[2023-07-31] MEDS: NS 1,000 ML IV 1,000 ML with MAGNESIUM SULFATE 50% INJ VIAL 1 G IV SCH ×6 (05:49→20:29)
[2023-07-31] MEDS ORDERED: MAG-OX TAB PO SCH (06:00)
[2023-07-31] MEDS ORDERED: K-DUR TAB 20 MEQ PO SCH (06:00)
[2023-07-31] MEDS ORDERED: CONSULT PHARMACY - POTASSIUM & MAGNESIUM XX SCH ×2 (06:00→10:00)
[2023-07-31] MEDS: XOPENEX 1.25 MG/3 ML NEBULE NEB SCH ×3 (06:07→21:40)
[2023-07-31] MEDS: KENALOG CREAM TOP SCH ×2 (09:03→20:24)
[2023-07-31] MEDS: ZYLOPRIM PO SCH (10:00)
[2023-07-31] MEDS: CORDARONE TAB 200 MG PO SCH ×2 (10:00→20:28)
[2023-07-31] MEDS: TOPROL XL PO SCH (10:00)
[2023-07-31] MEDS: PLAVIX PO SCH (10:00)
[2023-07-31] MEDS: ROCEPHIN VIAL 1 GRAM 1 G in NS 100 ML IV 100 ML IV SCH (10:00)
[2023-07-31] MEDS: PROTONIX INJ 40 MG VIAL IVP SCH ×2 (10:00→20:20)
[2023-07-31] MEDS: APRESOLINE TAB 25 MG PO SCH ×2 (10:35→20:20)
[2023-07-31 13:21] LABS: BASOPHILS # (AUTO) 0.1 X10^3/uL (0.0-0.1); BASOPHILS % (AUTO) 0.8 % (0.2-1.0); EOSINOPHILS # (AUTO) 0.3 x10^3/uL (0.0-0.2); EOSINOPHILS % (AUTO) 4.1 % (0.9-2.9); HEMATOCRIT 27.9 % (36.0-47.0); LYMPHOCYTES # (AUTO) 0.9 X10^3/uL (1.3-2.9); LYMPHOCYTES % (AUTO) 11.8 % (21.0-51.0); MEAN CORPUSCULAR HEMOGLOBIN 30.6 pg (27.0-34.0); MEAN CORPUSCULAR HGB CONC 32.3 g/dL (33.0-35.0); MEAN CORPUSCULAR VOLUME 94.7 fL (80.0-100.0); MEAN PLATELET VOLUME 8.5 fL (7.4-11.0); MONOCYTES # (AUTO) 0.8 x10^3/uL (0.3-0.8); MONOCYTES % (AUTO) 9.9 % (0.0-13.0); NEUTROPHILS # (AUTO) 5.7 x10^3/uL (2.2-4.8); NEUTROPHILS % (AUTO) 73.4 % (42.0-75.0); PLATELET COUNT 173 X10^3/uL (150.0-450.0); RED BLOOD COUNT 2.95 X10^6/uL (3.5-5.4); RED CELL DISTRIBUTION WIDTH 15.7 % (11.6-16.5); WHITE BLOOD COUNT 7.8 X10^3/uL (3.6-10.0)
[2023-07-31] MEDS: COUMADIN TAB 5 MG (JANTOVEN) PO SCH (20:29)
[2023-08-01] MEDS: NS 1,000 ML IV 1,000 ML with MAGNESIUM SULFATE 50% INJ VIAL 1 G IV SCH ×4 (01:26→09:23)
[2023-08-01] MEDS: CARAFATE PO SCH (05:31)
[2023-08-01] MEDS: SYNTHROID 25 mcg TAB PO SCH (05:31)
[2023-08-01] MEDS: XOPENEX 1.25 MG/3 ML NEBULE NEB SCH (06:16)
[2023-08-01 07:22] LABS: BASOPHILS # (AUTO) 0.1 X10^3/uL (0.0-0.1); EOSINOPHILS # (AUTO) 0.3 x10^3/uL (0.0-0.2); EOSINOPHILS % (AUTO) 3.9 % (0.9-2.9); HEMATOCRIT 25.8 % (36.0-47.0); HEMOGLOBIN 8.4 g/dL (12.0-16.0); LYMPHOCYTES # (AUTO) 1.3 X10^3/uL (1.3-2.9); LYMPHOCYTES % (AUTO) 17.4 % (21.0-51.0); MEAN CORPUSCULAR HEMOGLOBIN 30.7 pg (27.0-34.0); MEAN CORPUSCULAR HGB CONC 32.7 g/dL (33.0-35.0); MEAN PLATELET VOLUME 8.6 fL (7.4-11.0); MONOCYTES # (AUTO) 0.8 x10^3/uL (0.3-0.8); MONOCYTES % (AUTO) 10.6 % (0.0-13.0); NEUTROPHILS # (AUTO) 4.9 x10^3/uL (2.2-4.8); NEUTROPHILS % (AUTO) 67.1 % (42.0-75.0); PLATELET COUNT 157 X10^3/uL (150.0-450.0); RED BLOOD COUNT 2.74 X10^6/uL (3.5-5.4); RED CELL DISTRIBUTION WIDTH 15.7 % (11.6-16.5); WHITE BLOOD COUNT 7.4 X10^3/uL (3.6-10.0)
[2023-08-01 07:24] LABS: INR 2.83 (0.8-1.3)
[2023-08-01 07:34] LABS: ALANINE AMINOTRANSFERASE 19 Units/L (12-78); ALBUMIN 2.8 g/dL (3.4-5.0); ALKALINE PHOSPHATASE 117 Units/L (46-116); ASPARTATE AMINO TRANSFERASE 21 Units/L (15-37); BLOOD UREA NITROGEN 53 mg/dL (7-18); CALCIUM 8.1 mg/dL (8.5-10.1); CARBON DIOXIDE 24.5 mmol/L (21-32); CHLORIDE 102 mmol/L (98-107); COR CA(FOR HYPOALB) 9.1 mg/dL (8.5-10.1); CREATININE 2.24 mg/dL (0.55-1.02); GLUCOSE 101 mg/dL (65-99); MAGNESIUM 2.4 mg/dL (2.0-2.9); POTASSIUM 3.7 mmol/L (3.5-5.1); SODIUM 136 mmol/L (136-145); TOTAL PROTEIN 5.5 g/dL (6.4-8.2); eGFR NON BLACK RACES 22 (>60)
[2023-08-01 08:02] VITALS: BP 176/81; PULSE 75; RESP 24; TEMP 98.3; O2SAT 94
[2023-08-01] MEDS: APRESOLINE TAB 25 MG PO SCH (09:20)
[2023-08-01] MEDS: PLAVIX PO SCH (09:20)
[2023-08-01] MEDS: PROTONIX INJ 40 MG VIAL IVP SCH (09:20)
[2023-08-01] MEDS: PEPCID TAB 20 MG PO SCH (09:21)
[2023-08-01] MEDS: CORDARONE TAB 200 MG PO SCH (09:21)
[2023-08-01] MEDS: TOPROL XL PO SCH (09:21)
[2023-08-01] MEDS: KENALOG CREAM TOP SCH (09:22)
[2023-08-01] MEDS: ZYLOPRIM PO SCH (09:23)
[2023-08-01] MEDS: ROCEPHIN VIAL 1 GRAM 1 G in NS 100 ML IV 100 ML IV SCH (09:23)
[2023-08-01] MEDS ORDERED: LASIX IVP ONE (12:00)
[2023-08-01] MEDS ORDERED: LASIX IVP SCH (17:00)
== END 2023-08-01 11:14 | disposition swing bed (61) | DRG 291 ==
LOC: ER 17:43 → ICU 17:43 → MED/SURG 07-31 12:22
PROVIDERS: ADMIT Internal Medicine; ATTEND Internal Medicine